=== PATIENT | male | born 1965 | race Caucasian/White ===

== ENCOUNTER 2020-03-26 17:50 | Emergency (ER) | payer MEDICAID, SELFPAY ==
[2020-03-26 18:05] VITALS: BP 112/78; PULSE 88; RESP 18; TEMP 36.6; O2SAT 95; BMI 24.0
--- NOTE | 2020-03-26 18:12 | XR_ITS ---
PROCEDURE: XR CHEST PORTABLE CLINICAL HISTORY: cough COMPARISON: CR XR CHEST 2V from 02/12/2019 FINDINGS: The cardiomediastinal silhouette and pulmonary vascularity are within normal limits. The lungs are clear without infiltrates, suspicious nodules, or pleural effusions. No acute bony abnormalities. IMPRESSION: No acute findings. Dictated by: Alfredo Rubio MD 03/27/2020 06:42 Alfredo Rubio MD in [place] 03/27/2020 06:42
--- NOTE | 2020-03-26 18:29 | HMH.EDGENADL ---
ED Disposition Clinical Impression: Generalized weakness Disposition: Xfer SNF Condition on Discharge: Good Instructions: DI for Muscle Weakness Referrals: Marcus Stephen MD [Primary Care Provider] - - Critical Care Critical Care Time: No Attestation: On , the high probability of a clinically significant, sudden or life threatening deterioration of the following system(s) required my full and direct attention, intervention and personal management. The time I documented below is in addition to time spent performing reported procedures but includes the following listed in this critical care notation. Medical Decision Making - Medical Records Medical records reviewed: Yes: I reviewed the patient's medical records. - Benny Inquiry Pt receiving controlled substance: No Vital Signs: 03/26/20 18:05 Temperature 97.8 F Temperature Source Oral Pulse Rate [Right Radial] 88 Respiratory Rate 18 Blood Pressure [Right Arm] 112/78 Blood Pressure Mean [Right Arm] 89 Blood Pressure Source [Right Arm] Automatic Cuff Blood Pressure Position [Right Arm] Supine 02 Sat by Pulse Oximetry 95 Oxygen Delivery Method Room Air - Lab Data Lab Results 03/26/20 19:00: WBC 5.8, RBC 4.11 L, Hgb 13.3 L, Hct 40.2 L, MCV 97.9 H, MCH 32.3 H, MCHC 33.0, RDW 15.7, Plt Count 217, MPV 8.2, Neut % (Auto) 47.0, Lymph % (Auto) 42.7, [place] % (Auto) 6.2, Eos % (Auto) 3.2, Baso % (Auto) 0.9, Neut # (Auto) 2.7, Lymph # (Auto) 2.5, [place] # (Auto) 0.4, Eos # (Auto) 0.2, Baso # (Auto) 0.1 03/26/20 19:00: Sodium 138, Potassium 4.2, Chloride 104, Carbon Dioxide 27, Anion Gap 11.2, BUN 11, Creatinine 1.00, Estimated Creat Clear 97, Estimated GFR 78, Est GFR ( Amer) 95, Glucose 155 H, Calcium 10.5 H, Total Bilirubin 0.3, AST 47, ALT 34, Alkaline Phosphatase 80, Total Protein 6.8, Albumin 4.1, Globulin 2.7, Albumin/Globulin Ratio 1.5 03/26/20 19:30: Urine Color Yellow, Urine Appearance Clear, Urine pH 6.0, Ur Specific [place] >= 1.030, Urine Protein Negative, Urine Glucose (UA) Negative, Urine Ketones Trace, Urine Blood Negative, Urine Nitrate Negative, Urine Bilirubin Negative, Urine Urobilinogen 1.0, Ur Leukocyte Esterase Negative, Urine WBC 5-10, Calcium Oxalate Crystal 1+ Result diagrams: 03/26/20 19:00 03/26/20 19:00 Orders (Tests/Meds): ORDERS Category Date Time Status XR chest portable Stat Exams 03/26/20 18:12 Taken - Radiology Data #1 Image(s): Chest Image Reviewed: Yes I reviewed the patient's radiology results, Yes I reviewed the patient's radiology image Preliminary Findings: Normal/NAD, No Fracture Seen - Reevaluation(s) Time: 19:47 Reevaluation #1: On reevaluation, patient appears to be at his baseline. Repeat neurologic exam does not show any significant difference. Patient is follow-up with PCP. Given strict return precautions. Verbalized understanding. Medical Decision Narrative: 54-year-old male presented with generalized weakness. Patient has nonfocal examination. Work-up initiated. General Adult HPI - General Chief complaint: Weakness Stated complaint: weakness Time Seen by Provider: 03/26/20 18:10 Mode of Arrival: EMS Limitations: No Limitations Description of Symptoms (Recalled from ER Triage Doc. by RN): Weakness - History of Present Illness HPI narrative: 54-year-old male presented to the emergency department with generalized weakness. Patient from nursing facility. Patient states he has had this for the last few days. Denies any headache or change in vision. He is not having focal weakness. No fevers or chills. No abdominal pain or diarrhea. No chest pain or shortness of breath. The patient cannot describe any focal problems, he states that he feels weak all over. - Related Data Previous Rx's Medication Instructions Recorded Acetaminophen 1,000 mg PO TID PRN #60 tab 02/12/19 Ibuprofen [Ibuprofen 600mg 600 mg PO Q6H #30 tab 02/12/19 Tablet] Penicillin V Potassium
[2020-03-26 19:17] LABS: Basophils # 0.1 K/mm3 (0-0.2); Basophils % 0.9 % (0.1-2.0); Eosinophils # 0.2 K/mm3 (0.0-0.4); Eosinophils % 3.2 % (0.1-12.0); Hematocrit 40.2 % (42.0-52.0); Hemoglobin 13.3 g/dL (14.1-18.0); Lymphocytes # 2.5 K/mm3 (0.7-4.5); Lymphocytes % 42.7 % (10-50); Mean Corpuscular Hemoglobin 32.3 pg (27.0-31.2); Mean Corpuscular Volume 97.9 fl (80-94); Mean Platelet Volume 8.2 fl (7.4-10.4); Monocytes # 0.4 K/mm3 (0.1-1.0); Monocytes % 6.2 % (1.7-9.3); Neutrophils # 2.7 K/mm3 (1.8-7.8); Platelet Count 217 K/mm3 (142-424); Red Blood Count 4.11 M/mm3 (4.60-6.20); Red Cell Distribution Width 15.7 % (11.5-17.5); White Blood Count 5.8 K/mm3 (4.8-10.8)
[2020-03-26 19:23] LABS: Chloride 104 mmol/L (98-107); Potassium 4.2 mmoL/L (3.5-5.1); Sodium 138 mmol/L (136-145)
[2020-03-26 19:26] LABS: Alanine Aminotransferase 34 U/L (12-78); Albumin Level 4.1 g/dl (3.5-5.0); Albumin/Globulin Ratio 1.5 (1.1-1.8); Alkaline Phosphatase 80 U/L (38-126); Anion Gap 11.2 mEq/L (5-15); Aspartate Amino Transferase 47 U/L (17-59); Bilirubin,Total 0.3 mg/dl (0.2-1.3); Blood Urea Nitrogen 11 mg/dl (9-20); Calcium 10.5 mg/dl (8.4-10.2); Carbon Dioxide 27 mmol/L (22.0-30.0); Creatinine Clearance Estimated 97 mL/min (50-200); Estimated Glomerular Filt Rate 78 ml/min (>60); GFR (African American) 95 ML/MIN (>60); Globulin 2.7 g/dL (1.3-3.2); Glucose 155 mg/dl (74-100); Total Protein,Serum 6.8 g/dl (6.3-8.2)
[2020-03-26 19:33] LABS: Microscopic, Urine URINE MICROSCOPIC (MICROSCOPIC)
[2020-03-26 19:35] LABS: Appearance,Urine CLEAR (Clear); Blood, Urine Negative (Negative); Color,Urine YELLOW (Yellow); Glucose,Urine (UA) Negative (Negative); Ketones,Urine TRACE (Negative); Leukocyte Esterase,Urine Negative (Negative); Nitrate,Urine Negative (Negative); Protein,Urine Negative (Negative); Specific Gravity, Urine >= 1.030 (1.005-1.030)
[2020-03-26 19:45] LABS: Bilirubin,Urine Negative (Negative); Calcium Oxalate Crystals,Urine 1+ /lpf
[2020-03-26 19:48] VITALS: BP 116/75; PULSE 82; RESP 16; TEMP 36.8; O2SAT 98
== END 2020-03-26 19:52 ==
PROVIDERS: Emergency Provider Emergency Medicine; PCP Emergency Medicine
DX: R53.83 Other fatigue (principal); E10.65 Type 1 diabetes mellitus with hyperglycemia; Z79.84 Long term (current) use of oral hypoglycemic drugs
CPT/HCPCS: 71045; 80053; 81001; 85025; 99282

== ENCOUNTER 2020-05-16 10:11 | Emergency (ER) | payer MEDICAID, SELFPAY ==
[2020-05-16 10:11] VITALS: BP 118/96; PULSE 74; RESP 18; TEMP 36.4; O2SAT 100; BMI 25.8
--- NOTE | 2020-05-16 10:13 | XR_ITS ---
PROCEDURE: XR CHEST PORTABLE CLINICAL HISTORY: weakness COMPARISON: CR XR CHEST 2V from 02/12/2019 CR XR CHEST PORTABLE from 03/26/2020 FINDINGS: The cardiomediastinal silhouette and pulmonary vascularity are within normal limits. The lungs are clear without infiltrates, suspicious nodules, or pleural effusions. There are minimal atelectatic changes in the left lower lobe. No acute bony finding. IMPRESSION: Minimal left basilar atelectasis Dictated by: Alfredo Rubio MD 05/16/2020 12:06 Alfredo Rubio MD in [facility] 05/16/2020 12:06
--- NOTE | 2020-05-16 10:15 | CT_ITS ---
Procedure: CT ANGIO NECK CLINICAL HISTORY: difficulty walking Weakness COMPARISON: CT CT ANGIO HEAD from 05/16/2020 TECHNIQUE: IV Contrast: 100ml Isovue 370 Axial images obtained with sagittal and coronal reformats. All CT scans at the facility use one or more dose reduction, viz: automated exposure control, ma/kV adjustment per patient size (including targeted exams where dose is matched to indication, i.e. head), or iterative reconstruction technique. FINDINGS: CTA neck: Motion artifact limits fine detail. Unremarkable appearing aortic arch and great vessels. No carotid or vertebral stenosis dissection or ulcerating plaque. Incidental note is made thickening of the esophagus with air in the esophagus which could be due to distal obstruction or reflux. Motion artifact limits fine detail of the nonvascular structures. There is and 11 mm hypodense nodule of the thyroid gland on the left. Scattered small nodes are present in the neck. CTA head: Bolus timing issues and motion artifact limits fine detail evaluation of the cavernous portion of the ICAs. There is mild fusiform dilatation of the cavernous portion of the right ICA at 6 mm. No aneurysm, AVM, or large branch occlusion apparent. No obvious enhancing lesions. IMPRESSION: 1. No significant stenosis occlusion or dissection or aneurysm apparent. 2. Bolus timing and motion artifact limits fine detail evaluation of the intracranial portion of the exam. There is mild fusiform dilatation of the cavernous portion of the right ICA at 6 mm. 3. Air is present in the esophagus and may be due to reflux or distal obstruction. Dictated by: Alfredo Rubio MD 05/16/2020 11:48 Alfredo Rubio MD in [facility] 05/16/2020 11:48
--- NOTE | 2020-05-16 10:15 | CT_ITS ---
PROCEDURE: CT HEAD/BRAIN WO CON CLINICAL INDICATION: weakness, headache COMPARISON: CT CT HEAD/BRAIN WO CON from 02/12/2019 TECHNIQUE: Axial images obtained. All CT scans at the facility use one or more dose reduction, viz: automated exposure control, ma/kV adjustment per patient size (including targeted exams where dose is matched to indication, i.e. head), or iterative reconstruction technique. FINDINGS: No midline shift, mass effect, intracranial hemorrhage, hydrocephalus, or extra-axial fluid collection is evident. The calvarium has an unremarkable appearance. No mastoid effusion. There is mild mucosal thickening of the paranasal sinuses without air-fluid level. IMPRESSION: No acute intracranial finding Dictated by: Alfredo Rubio MD 05/16/2020 11:37 Alfredo Rubio MD in [facility] 05/16/2020 11:37
--- NOTE | 2020-05-16 10:16 | CT_ITS ---
PROCEDURE: CT ABDOMEN PELVIS W CON CLINICAL INDICATION: abd pain Abdominal pain with weakness and headache COMPARISON: No exams were available for comparison TECHNIQUE: IV Contrast: 75ML Isovue 370 Oral Contrast None Axial images obtained with sagittal and coronal reformats. All CT scans at the facility use one or more dose reduction, viz: automated exposure control, ma/kV adjustment per patient size (including targeted exams where dose is matched to indication, i.e. head), or iterative reconstruction technique. FINDINGS: LOWER THORAX: Bowel interposition is present on the right. There is fatty liver. No focal liver lesion is evident. The gallbladder and spleen have an unremarkable appearance. The adrenal glands and pancreas and kidneys have an unremarkable appearance. No intestinal obstruction or free air. No evidence of appendicitis. There is a small left inguinal hernia containing fat. There is mild wedging of L1 with loss of height anteriorly of approximately 25 percent ABDOMEN & PELVIS: The liver, spleen, pancreas, adrenal glands, and kidneys show no acute finding. No intestinal obstruction or free air. No evidence of appendicitis or diverticulitis. No pelvic mass, abnormal fluid collection, or focal inflammatory change of the pelvis. No acute bony anomalies. IMPRESSION: No acute finding Dictated by: Alfredo Rubio MD 05/16/2020 11:53 Alfredo Rubio MD in [place] 05/16/2020 11:53
--- NOTE | 2020-05-16 10:16 | ECG_ITS ---
APPROVED REPORT Exam: Resting ECG HR:72 bpm ECG Measurements Heart Rate 72 AXES IA 152 P 27 QRSd 78 QRS -9 QT 370 T 7 QTc 405 Conclusion Normal sinus rhythm Possible Left atrial enlargement Nonspecific T wave abnormality Abnormal ECG Electronically signed by : Paco Quick, 05/17/2020 08:54:33
--- NOTE | 2020-05-16 10:16 | HMH.EDGENADL ---
ED Disposition Clinical Impression: Gait instability, Generalized weakness Schizophrenia Qualifiers: Schizophrenia type: other Qualified Code(s): F20.89 - Other schizophrenia Disposition: Home, Self-Care Condition on Discharge: Fair Instructions: Exercises to Help Prevent Falls, How to Prevent Falls Referrals: Marcus Stephen MD [Primary Care Provider] - Time of Disposition: 13:31 - Critical Care Critical Care Time: No Attestation: On , the high probability of a clinically significant, sudden or life threatening deterioration of the following system(s) required my full and direct attention, intervention and personal management. The time I documented below is in addition to time spent performing reported procedures but includes the following listed in this critical care notation. Medical Decision Making - Medical Records Medical records reviewed: Yes: I reviewed the patient's medical records. - Benny Inquiry Pt receiving controlled substance: No Vital Signs: 05/16/20 10:11 05/16/20 11:41 05/16/20 12:00 Temperature 97.5 F L Temperature Source Oral Pulse Rate Pulse Rate [Left Radial] 74 78 78 Respiratory Rate 18 18 Blood Pressure Blood Pressure [Right Arm] 118/96 H 163/67 H Blood Pressure Mean [Right Arm] 103 99 Blood Pressure Source [Right Arm] Automatic Cuff Blood Pressure Position [Right Arm] Sitting 02 Sat by Pulse Oximetry 100 98 98 Oxygen Delivery Method Room Air 05/16/20 12:30 05/16/20 13:22 Temperature 98.1 F Temperature Source Pulse Rate 84 Pulse Rate [Left Radial] 83 Respiratory Rate 16 16 Blood Pressure 134/71 Blood Pressure [Right Arm] 122/88 Blood Pressure Mean [Right Arm] 99 Blood Pressure Source [Right Arm] Blood Pressure Position [Right Arm] 02 Sat by Pulse Oximetry 98 Oxygen Delivery Method Room Air - Lab Data Lab Results 05/16/20 10:17: WBC 6.0, RBC 4.39 L, Hgb 13.5 L, Hct 43.8, MCV 99.9 H, MCH 30.7, MCHC 30.7 L, RDW 15.4, Plt Count 255, MPV 7.6, Neut % (Auto) 46.6, Lymph % (Auto) 40.4, [place] % (Auto) 9.6 H, Eos % (Auto) 3.0, Baso % (Auto) 0.4, Neut # (Auto) 2.8, Lymph # (Auto) 2.4, [place] # (Auto) 0.6, Eos # (Auto) 0.2, Baso # (Auto) 0.0 05/16/20 10:17: PT 11.8, INR 1.00, APTT 28.2 05/16/20 10:17: Sodium 133 L, Potassium 3.9, Chloride 100, Carbon Dioxide 26, Anion Gap 10.9, BUN 5 L, Creatinine 0.80, Estimated Creat Clear 123, Estimated GFR 101, Est GFR ( Amer) 122, Glucose 127 H, Calcium 9.6, Total Bilirubin 0.4, AST 49, ALT 32, Alkaline Phosphatase 107, Troponin I < 0.01, Total Protein 7.4, Albumin 4.3, Globulin 3.1, Albumin/Globulin Ratio 1.4 05/16/20 12:14: Urine Color Yellow, Urine Appearance Clear, Urine pH 7.5, Ur Specific [place] 1.015, Urine Protein Negative, Urine Glucose (UA) Negative, Urine Ketones Negative, Urine Blood Negative, Urine Nitrate Negative, Urine Bilirubin Negative, Urine Urobilinogen 0.2, Ur Leukocyte Esterase Negative, Urine RBC None, Urine WBC None, Ur Squamous Epith Cells Occasional, Urine Bacteria None Result diagrams: 05/16/20 10:17 05/16/20 10:17 Orders (Tests/Meds): ED MEDICATIONS Discontinued Medications Generic Name Dose Route Start Last Admin Trade Name Freq PRN Reason Stop Dose Admin Iopamidol 150 ml 05/16/20 11:12 05/16/20 11:13 Iopamidol-370 (76%);100ml Bottle IV 05/16/20 11:13 150 ml ONCE ONE Administration Sodium Chloride 10 ml 05/16/20 11:12 05/16/20 11:13 Sodium Chloride 0.9% 10ml Syr (Rad Only) IV 05/16/20 11:13 10 ml ONCE ONE Administration Sodium Chloride 50 ml 05/16/20 11:12 05/16/20 11:13 0.9 % Sodium Chloride 50 Ml Vial IV 05/16/20 11:13 50 ml ONCE ONE Administration ORDERS Category Date Time Status Occult Blood,Stool Stat Lab 05/16/20 10:14 Ordered ECG Request by /Nse Stat Y 05/16/20 10:13 Ordered Medical Decision Narrative: In summary this is a 54-year-old male with history of schizophrenia presenting to the emergency d
[2020-05-16 10:42] LABS: Basophils % 0.4 % (0.1-2.0); Eosinophils # 0.2 K/mm3 (0.0-0.4); Hematocrit 43.8 % (42.0-52.0); Hemoglobin 13.5 g/dL (14.1-18.0); Lymphocytes # 2.4 K/mm3 (0.7-4.5); Lymphocytes % 40.4 % (10-50); Mean Corpuscular HGB Conc 30.7 g/dL (31.8-35.4); Mean Corpuscular Hemoglobin 30.7 pg (27.0-31.2); Mean Corpuscular Volume 99.9 fl (80-94); Mean Platelet Volume 7.6 fl (7.4-10.4); Monocytes # 0.6 K/mm3 (0.1-1.0); Monocytes % 9.6 % (1.7-9.3); Neutrophils # 2.8 K/mm3 (1.8-7.8); Neutrophils % 46.6 % (37.0-80.0); Platelet Count 255 K/mm3 (142-424); Red Blood Count 4.39 M/mm3 (4.60-6.20); Red Cell Distribution Width 15.4 % (11.5-17.5)
[2020-05-16 10:51] LABS: Chloride 100 mmol/L (98-107); Sodium 133 mmol/L (136-145)
[2020-05-16 10:52] LABS: Potassium 3.9 mmoL/L (3.5-5.1)
[2020-05-16 10:54] LABS: Alanine Aminotransferase 32 U/L (12-78); Alkaline Phosphatase 107 U/L (38-126); Aspartate Amino Transferase 49 U/L (17-59); Bilirubin,Total 0.4 mg/dl (0.2-1.3); Blood Urea Nitrogen 5 mg/dl (9-20); Creatinine Clearance Estimated 123 mL/min (50-200); Estimated Glomerular Filt Rate 101 ml/min (>60); GFR (African American) 122 ML/MIN (>60)
[2020-05-16 10:55] LABS: Albumin Level 4.3 g/dl (3.5-5.0); Albumin/Globulin Ratio 1.4 (1.1-1.8); Anion Gap 10.9 mEq/L (5-15); Calcium 9.6 mg/dl (8.4-10.2); Carbon Dioxide 26 mmol/L (22.0-30.0); Globulin 3.1 g/dL (1.3-3.2); Glucose 127 mg/dl (74-100); Total Protein,Serum 7.4 g/dl (6.3-8.2)
[2020-05-16 11:01] LABS: Activated Partial Thrombo Time 28.2 seconds (23.6-34.0); Prothrombin Time 11.8 seconds (9.4-11.8)
--- NOTE | 2020-05-16 11:05 | PC.NURSE ---
Pt in radiology
[2020-05-16 11:10] LABS: Troponin I < 0.01 ng/ml (0.00-0.034)
[2020-05-16 11:41] VITALS: PULSE 78; O2SAT 98
[2020-05-16 12:00] VITALS: BP 163/67; PULSE 78; RESP 18; O2SAT 98
[2020-05-16 12:16] LABS: Microscopic, Urine URINE MICROSCOPIC (MICROSCOPIC)
[2020-05-16 12:18] LABS: Appearance,Urine CLEAR (Clear); Bilirubin,Urine Negative (Negative); Blood, Urine Negative (Negative); Color,Urine YELLOW (Yellow); Glucose,Urine (UA) Negative (Negative); Ketones,Urine Negative (Negative); Leukocyte Esterase,Urine Negative (Negative); Nitrate,Urine Negative (Negative); PH,Urine 7.5 (5.0-8.5); Protein,Urine Negative (Negative); Specific Gravity, Urine 1.015 (1.005-1.030); Urobilinogen,Urine 0.2 EU/dl (0.2)
[2020-05-16 12:29] LABS: Squamous Epithelial Cell,Urine Occasional #/hpf (0-5)
[2020-05-16 12:30] VITALS: BP 122/88; PULSE 83; RESP 16; O2SAT 98
--- NOTE | 2020-05-16 12:42 | PC.NURSE ---
Called for pt meal tray
[2020-05-16 13:22] VITALS: BP 134/71; PULSE 84; RESP 16; TEMP 36.7; O2SAT 98
== END 2020-05-16 13:22 | disposition home or self-care (01) ==
PROVIDERS: Emergency Provider Emergency Medicine; PCP Emergency Medicine
DX: R53.1 Weakness (principal); R26.81 Unsteadiness on feet; F20.89 Other schizophrenia
CPT/HCPCS: 70450; 70496; 70498; 71045; 74177; 80053; 81001; 84484; 85025; 85610; 85730; 93005; 99283; Q9967

== ENCOUNTER 2020-05-21 15:05 | Emergency (ER) | payer MEDICAID, SELFPAY ==
[2020-05-21] VITALS (8 sets, daily range): BP systolic 129–137; BP diastolic 72–86; PULSE 75–80; RESP 16–18; TEMP 36.4–36.7; O2SAT 95–99; BMI 23.1
--- NOTE | 2020-05-21 15:15 | XR_ITS ---
PROCEDURE: XR CHEST PORTABLE CLINICAL HISTORY: weakness COMPARISON: No exams were available for comparison FINDINGS: The cardiomediastinal silhouette and pulmonary vascularity are within normal limits. There are low lung volumes with mild bibasilar atelectasis. No acute bony abnormalities. IMPRESSION: Low lung volumes with mild bibasilar atelectasis Dictated by: Alfredo Rubio MD 05/21/2020 16:10 Alfredo Rubio MD in [place] 05/21/2020 16:10
--- NOTE | 2020-05-21 15:16 | HMH.EDGENADL ---
ED Disposition Clinical Impression: Feared condition not demonstrated Disposition: Home, Self-Care Condition on Discharge: Good Referrals: Marcus Stephen MD [Primary Care Provider] - 3 days Time of Disposition: 17:13 - Critical Care Critical Care Time: No Attestation: On , the high probability of a clinically significant, sudden or life threatening deterioration of the following system(s) required my full and direct attention, intervention and personal management. The time I documented below is in addition to time spent performing reported procedures but includes the following listed in this critical care notation. Medical Decision Making - Benny Inquiry Pt receiving controlled substance: No Vital Signs: 05/21/20 15:05 05/21/20 16:26 05/21/20 16:30 Temperature 97.5 F L Temperature Source Oral Pulse Rate 77 78 Pulse Rate [Left Radial] 75 Respiratory Rate 16 Blood Pressure [Right Arm] 129/86 Blood Pressure Mean [Right Arm] 100 Blood Pressure Source [Right Arm] Automatic Cuff Blood Pressure Position [Right Arm] Sitting 02 Sat by Pulse Oximetry 95 98 98 - Lab Data Lab results reviewed: Yes: I reviewed the patient's lab results. Lab Results 05/21/20 16:10: WBC 5.2, RBC 4.09 L, Hgb 12.8 L, Hct 38.6 L, MCV 94.5 H, MCH 31.3 H, MCHC 33.1, RDW 14.9, Plt Count 234, MPV 8.0, Neut % (Auto) 47.3, Lymph % (Auto) 42.2, [place] % (Auto) 6.8, Eos % (Auto) 3.1, Baso % (Auto) 0.6, Neut # (Auto) 2.5, Lymph # (Auto) 2.2, [place] # (Auto) 0.4, Eos # (Auto) 0.2, Baso # (Auto) 0.0 05/21/20 16:10: Sodium 130 L, Potassium 3.7, Chloride 96 L, Carbon Dioxide 22, Anion Gap 15.7 H, BUN 4 L, Creatinine 0.80, Estimated Creat Clear 123, Estimated GFR 101, Est GFR ( Amer) 122, Glucose 119 H, Calcium 9.4, Total Bilirubin 0.4, AST 53, ALT 35, Alkaline Phosphatase 89, Troponin I < 0.01, Total Protein 7.0, Albumin 4.2, Globulin 2.8, Albumin/Globulin Ratio 1.5 Result diagrams: 05/21/20 16:10 05/21/20 16:10 Orders (Tests/Meds): ORDERS Category Date Time Status Troponin I Q3H Lab 05/21/20 18:15 Ordered Troponin I Q3H Lab 05/21/20 21:15 Ordered Urinalysis and Microscopic Stat Lab 05/21/20 15:15 Ordered Blood Culture Stat Micro 05/21/20 16:10 Received - Radiology Data #1 Image(s): Chest Image Reviewed: Yes I reviewed the patient's radiology image Preliminary Findings: Normal/NAD Medical Decision Narrative: 54yo M sent from [facility] for evaluation of low energy. Patient is in no acute distress on his arrival. He is able to participate in his exam. Patient denies any complaint of pain. He denies any shortness of breath or chest pain. Routine labs have been ordered along with chest x-ray. Patient was observed to get out of this hospital bed by himself and ambulate across the emergency department to the restroom without difficulty. He then ambulated back to his room and got back in bed without difficulty. Labs are unremarkable. Chest x-ray shows no acute process. Patient has had normal vital signs during his observation emergency department he is appropriate and stable for discharge home at this time. General Adult HPI - General Stated complaint: weak Time Seen by Provider: 05/21/20 15:16 - History of Present Illness HPI narrative: 54yo M sent to the hospital via EMS from [facility] with report that the patient is not behaving normally and very somnolent. Staff reports the patient is unable to ambulate. I received report personally. Patient had normal blood pressure prior to arrival. The staff did not have a full set of vital signs to provide prior to transport. The patient states sometimes he feels tired and that he does not eat well, but this is because the quality of the food is poor. He denies nausea/vomiting/diarrhea, chest pain, shortness of breath. - Related Data Previous Rx's Medication Instructions Recorded Acetaminophen 1,000 mg PO TID PRN #60 tab 02/12/19 Ibuprofen [I
[2020-05-21 16:30] LABS: Basophils % 0.6 % (0.1-2.0); Eosinophils # 0.2 K/mm3 (0.0-0.4); Eosinophils % 3.1 % (0.1-12.0); Hematocrit 38.6 % (42.0-52.0); Hemoglobin 12.8 g/dL (14.1-18.0); Lymphocytes # 2.2 K/mm3 (0.7-4.5); Lymphocytes % 42.2 % (10-50); Mean Corpuscular HGB Conc 33.1 g/dL (31.8-35.4); Mean Corpuscular Hemoglobin 31.3 pg (27.0-31.2); Mean Corpuscular Volume 94.5 fl (80-94); Monocytes # 0.4 K/mm3 (0.1-1.0); Monocytes % 6.8 % (1.7-9.3); Neutrophils # 2.5 K/mm3 (1.8-7.8); Neutrophils % 47.3 % (37.0-80.0); Platelet Count 234 K/mm3 (142-424); Red Blood Count 4.09 M/mm3 (4.60-6.20); Red Cell Distribution Width 14.9 % (11.5-17.5); White Blood Count 5.2 K/mm3 (4.8-10.8)
[2020-05-21 16:32] LABS: Chloride 96 mmol/L (98-107); Sodium 130 mmol/L (136-145)
[2020-05-21 16:33] LABS: Potassium 3.7 mmoL/L (3.5-5.1)
[2020-05-21 16:35] LABS: Alanine Aminotransferase 35 U/L (12-78); Alkaline Phosphatase 89 U/L (38-126); Anion Gap 15.7 mEq/L (5-15); Aspartate Amino Transferase 53 U/L (17-59); Bilirubin,Total 0.4 mg/dl (0.2-1.3); Blood Urea Nitrogen 4 mg/dl (9-20); Carbon Dioxide 22 mmol/L (22.0-30.0); Creatinine Clearance Estimated 123 mL/min (50-200); Estimated Glomerular Filt Rate 101 ml/min (>60); GFR (African American) 122 ML/MIN (>60)
[2020-05-21 16:36] LABS: Albumin Level 4.2 g/dl (3.5-5.0); Albumin/Globulin Ratio 1.5 (1.1-1.8); Calcium 9.4 mg/dl (8.4-10.2); Globulin 2.8 g/dL (1.3-3.2); Glucose 119 mg/dl (74-100)
[2020-05-21 16:54] LABS: Troponin I < 0.01 ng/ml (0.00-0.034)
== END 2020-05-21 17:41 | disposition home or self-care (01) ==
PROVIDERS: Emergency Provider Family Medicine; PCP Emergency Medicine
DX: R53.83 Other fatigue (principal); Z71.1 Person with feared health complaint in whom no diagnosis is made; F20.9 Schizophrenia, unspecified; E10.9 Type 1 diabetes mellitus without complications
CPT/HCPCS: 71045; 80053; 84484; 85025; 87040; 99283

== ENCOUNTER 2020-06-20 17:16 | Observation (INO) | payer MEDICAID, SELFPAY ==
[2020-06-20] VITALS (14 sets, daily range): BP systolic 98–145; BP diastolic 60–118; PULSE 81–93; RESP 11–26; TEMP 36.3–36.6; O2SAT 97–100; BMI 22.4; BMI 21.1
--- NOTE | 2020-06-20 17:08 | ECG_ITS ---
APPROVED REPORT Exam: Resting ECG HR:85 bpm ECG Measurements Heart Rate 85 AXES DC 156 P 55 QRSd 84 QRS 41 QT 368 T 15 QTc 437 Conclusion Normal sinus rhythm T wave abnormality, consider anterior ischemia Abnormal ECG Electronically signed by : Paco Quick, 06/23/2020 07:33:46
--- NOTE | 2020-06-20 17:18 | CT_ITS ---
PROCEDURE: CT HEAD/BRAIN WO CON CLINICAL INDICATION: ams Altered mental status, altered level of consciousness, confusion, disorientation COMPARISON: CT CT ANGIO HEAD from 05/16/2020 TECHNIQUE: Axial images obtained. All CT scans at the facility use one or more dose reduction, viz: automated exposure control, ma/kV adjustment per patient size (including targeted exams where dose is matched to indication, i.e. head), or iterative reconstruction technique. FINDINGS: No midline shift, mass effect, intracranial hemorrhage, hydrocephalus, or extra-axial fluid collection is evident. There is generalized atrophy with hypoattenuation of the periventricular white matter consistent with microangiopathic changes. The calvarium has an unremarkable appearance. No mastoid effusion. Opacified left frontal sinus with moderate mucosal thickening of the right frontal sinus. Partial opacification of the ethmoids and mild mucosal thickening of the left maxillary sinus and left sphenoid sinus. IMPRESSION: 1. No acute intracranial findings. 2. Sinusitis Dictated by: Alfredo Rubio MD 06/21/2020 06:53 Alfredo Rubio MD in [place] 06/21/2020 06:53
--- NOTE | 2020-06-20 17:18 | XR_ITS ---
PROCEDURE: XR CHEST PORTABLE CLINICAL HISTORY: soa Shortness of air COMPARISON: CR XR CHEST PORTABLE from 03/26/2020 CR XR CHEST PORTABLE from 05/16/2020 CR XR CHEST PORTABLE from 05/21/2020 FINDINGS: The cardiomediastinal silhouette and pulmonary vascularity are within normal limits. Hypoventilation with bibasilar atelectasis. No acute bony abnormalities. IMPRESSION: Hypoexpansion with bibasilar atelectasis Dictated by: Alfredo Rubio MD 06/20/2020 21:40 Alfredo Rubio MD in [place] 06/20/2020 21:40
--- NOTE | 2020-06-20 17:20 | CT_ITS ---
PROCEDURE: CT ANGIO CHEST CLINCIAL INDICATION: ams Shortness of air, weakness COMPARISON: No exams were available for comparison TECHNIQUE: IV Contrast: 70ML Isovue 370 Axial images obtained with sagittal and coronal reformats. All CT scans at the facility use one or more dose reduction, viz: automated exposure control, ma/kV adjustment per patient size (including targeted exams where dose is matched to indication, i.e. head), or iterative reconstruction technique. FINDINGS: HEART AND MEDIASTINAL STRUCTURES: No evidence of pulmonary embolus, aortic aneurysm, or aortic dissection. LUNGS AND PLEURAL SPACES: 4 mm noncalcified nodule right upper lobe image 46. 4 mm noncalcified nodule right upper lobe medially image 46. Atelectatic changes are present in the lower lobes with dependent changes posteriorly. BONY STRUCTURES: No acute bony abnormalities apparent. UPPER ABDOMEN: Large amount of retained colonic feces ADDITIONAL FINDINGS: No other significant abnormalities. IMPRESSION: 1. No evidence of pulmonary embolus. 2. There are 2 nodules in the right upper lobe each at 4 mm. Consider 6-12 month follow-up. 3. Constipation Dictated by: Alfredo Rubio MD 06/21/2020 11:44 Alfredo Rubio MD in [place] 06/21/2020 11:44
--- NOTE | 2020-06-20 17:20 | CT_ITS ---
Procedure: CT ANGIO NECK CLINICAL HISTORY: ams Altered mental status, altered level of consciousness, confusion, disorientation COMPARISON: No exams were available for comparison TECHNIQUE: IV Contrast: 100ml Isovue 370 Axial images obtained with sagittal and coronal reformats. All CT scans at the facility use one or more dose reduction, viz: automated exposure control, ma/kV adjustment per patient size (including targeted exams where dose is matched to indication, i.e. head), or iterative reconstruction technique. FINDINGS: Aortic arch has an unremarkable appearance. Unremarkable appearing great vessels. The carotids and vertebral arteries have an unremarkable appearance. No stenosis, ulceration, aneurysm, or dissection. 1.4 cm nodule is present involving the left lobe of the thyroid gland. IMPRESSION: Negative CTA of the neck Dictated by: Alfredo Rubio MD 06/21/2020 10:17 Alfredo Rubio MD in [place] 06/21/2020 10:17
--- NOTE | 2020-06-20 17:20 | CT_ITS ---
Procedure: CT ANGIO HEAD CLINICAL HISTORY: ams Altered mental status, altered level of consciousness, confusion, disorientation COMPARISON: CT CT HEAD/BRAIN WO CON from 06/20/2020 TECHNIQUE: IV Contrast: 100ml Isovue 370 Axial images obtained with sagittal and coronal reformats. All CT scans at the facility use one or more dose reduction, viz: automated exposure control, ma/kV adjustment per patient size (including targeted exams where dose is matched to indication, i.e. head), or iterative reconstruction technique. FINDINGS: No aneurysm, AVM, or major intracranial occlusive process apparent. No enhancing lesions. No evidence of dural sinus thrombosis IMPRESSION: Negative CTA of the head Dictated by: Alfredo Rubio MD 06/21/2020 10:20 Alfredo Rubio MD in [place] 06/21/2020 10:20
--- NOTE | 2020-06-20 17:22 | PC.NURSE ---
Notified RT about BG
[2020-06-20 17:32] LABS: Basophils % 0.3 % (0.1-2.0); Eosinophils # 0.1 K/mm3 (0.0-0.4); Eosinophils % 1.4 % (0.1-12.0); Hematocrit 42.2 % (42.0-52.0); Hemoglobin 13.6 g/dL (14.1-18.0); Lymphocytes # 1.6 K/mm3 (0.7-4.5); Mean Corpuscular HGB Conc 32.2 g/dL (31.8-35.4); Mean Corpuscular Hemoglobin 30.7 pg (27.0-31.2); Mean Corpuscular Volume 95.5 fl (80-94); Mean Platelet Volume 7.7 fl (7.4-10.4); Monocytes # 0.8 K/mm3 (0.1-1.0); Monocytes % 8.5 % (1.7-9.3); Neutrophils # 6.4 K/mm3 (1.8-7.8); Neutrophils % 71.8 % (37.0-80.0); Platelet Count 357 K/mm3 (142-424); Red Blood Count 4.42 M/mm3 (4.60-6.20); Red Cell Distribution Width 16.7 % (11.5-17.5)
[2020-06-20 17:33] LABS: Chloride 100 mmol/L (98-107); Potassium 3.5 mmoL/L (3.5-5.1); Sodium 135 mmol/L (136-145)
[2020-06-20 17:35] LABS: Alanine Aminotransferase 24 U/L (12-78); Alkaline Phosphatase 153 U/L (38-126); Aspartate Amino Transferase 38 U/L (17-59); Bilirubin,Total 0.7 mg/dl (0.2-1.3); Blood Urea Nitrogen 9 mg/dl (9-20); Creatinine Clearance Estimated 104 mL/min (50-200); Estimated Glomerular Filt Rate 88 ml/min (>60); GFR (African American) 107 ML/MIN (>60)
[2020-06-20 17:36] LABS: Albumin Level 4.1 g/dl (3.5-5.0); Albumin/Globulin Ratio 1.4 (1.1-1.8); Anion Gap 12.5 mEq/L (5-15); Calcium 9.8 mg/dl (8.4-10.2); Carbon Dioxide 26 mmol/L (22.0-30.0); Globulin 2.9 g/dL (1.3-3.2); Glucose 120 mg/dl (74-100); Lipase 192 U/L (23-300); Magnesium 1.5 mg/dl (1.6-2.3)
--- NOTE | 2020-06-20 17:42 | HMH.EDAMS ---
ED Disposition Clinical Impression: Altered mental status Disposition: Admitted as Observation Condition on Discharge: Good Instructions: DI for Altered Mental Status - Critical Care Critical Care Time: No Attestation: On , the high probability of a clinically significant, sudden or life threatening deterioration of the following system(s) required my full and direct attention, intervention and personal management. The time I documented below is in addition to time spent performing reported procedures but includes the following listed in this critical care notation. Medical Decision Making - Medical Records Medical records reviewed: Yes: I reviewed the patient's medical records. - Benny Inquiry Pt receiving controlled substance: No Vital Signs: 06/20/20 17:17 06/20/20 17:30 Temperature 97.8 F Temperature Source Oral Pulse Rate 84 Pulse Rate [Right] 81 Respiratory Rate 18 Blood Pressure 119/82 Blood Pressure [Right Arm] 123/84 Blood Pressure Mean 93 Blood Pressure Mean [Right Arm] 97 02 Sat by Pulse Oximetry 98 99 - Lab Data Lab Results 06/20/20 17:15: WBC 9.0, RBC 4.42 L, Hgb 13.6 L, Hct 42.2, MCV 95.5 H, MCH 30.7, MCHC 32.2, RDW 16.7, Plt Count 357, MPV 7.7, Neut % (Auto) 71.8, Lymph % (Auto) 18.0, [place] % (Auto) 8.5, Eos % (Auto) 1.4, Baso % (Auto) 0.3, Neut # (Auto) 6.4, Lymph # (Auto) 1.6, [place] # (Auto) 0.8, Eos # (Auto) 0.1, Baso # (Auto) 0.0 06/20/20 17:15: Sodium 135 L, Potassium 3.5, Chloride 100, Carbon Dioxide 26, Anion Gap 12.5, BUN 9, Creatinine 0.90, Estimated Creat Clear 104, Estimated GFR 88, Est GFR ( Amer) 107, Glucose 120 H, Calcium 9.8, Magnesium 1.5 L, Total Bilirubin 0.7, AST 38, ALT 24, Alkaline Phosphatase 153 H, Troponin I < 0.01, Total Protein 7.0, Albumin 4.1, Globulin 2.9, Albumin/Globulin Ratio 1.4, Lipase 192, TSH 2.65 06/20/20 17:15: Salicylates < 1.0 L, Acetaminophen < 10 L 06/20/20 17:15: Plasma/Serum Alcohol < 10 06/20/20 17:18: VBG pH 7.33, VBG pCO2 47.8, VBG pO2 28.0, VBG HCO3 24.5, VBG Total CO2 26.0, VBG O2 Saturation 52.1, VBG Base Excess -1.4 Result diagrams: 06/20/20 17:15 06/20/20 17:15 Orders (Tests/Meds): ED MEDICATIONS Generic Name Dose Route Start Last Admin Trade Name Freq PRN Reason Stop Dose Admin Sodium Chloride 1,000 mls @ 999 mls/hr 06/20/20 17:30 06/20/20 17:48 Sod Chlor 0.9% 1000ml Bag IV 06/20/20 18:30 999 mls/hr .Q1H1M JO Administration Discontinued Medications Generic Name Dose Route Start Last Admin Trade Name Freq PRN Reason Stop Dose Admin Magnesium Sulfate 2 gm/ Sodium 104 mls @ 100 mls/hr 06/20/20 18:07 06/20/20 18:48 Chloride IV 06/20/20 19:09 Not Given ONCE ONE Magnesium Sulfate 1 gm/ Sodium 52 mls @ 100 mls/hr 06/20/20 18:47 06/20/20 18:49 Chloride IV 06/20/20 19:18 100 mls/hr ONCE ONE Administration Iopamidol 170 ml 06/20/20 18:56 06/20/20 18:58 Iopamidol-370 (76%);100ml Bottle IV 06/20/20 18:57 170 ml ONCE ONE Administration Naloxone HCl 0.4 mg 06/20/20 18:42 06/20/20 19:04 Naloxone 0.4mg/Ml Vial IV 06/20/20 18:43 0.4 mg ONCE ONE Administration Sodium Chloride 50 ml 06/20/20 18:56 06/20/20 18:58 0.9 % Sodium Chloride 50 Ml Vial IV 06/20/20 18:57 50 ml ONCE ONE Administration Sodium Chloride 10 ml 06/20/20 18:56 06/20/20 18:58 Sodium Chloride 0.9% 10ml Syr (Rad Only) IV 06/20/20 18:57 10 ml ONCE ONE Administration Sodium Chloride 20 ml 06/20/20 18:56 06/20/20 18:58 0.9% Sodium Chloride 20ml Vial IV 06/20/20 18:57 20 ml ONCE ONE Administration ORDERS Category Date Time Status CT angio chest Stat Cat Scan 06/20/20 17:[address] angio head Stat Cat Scan 06/20/20 17:[address] angio neck Stat Cat Scan 06/20/20 17:[address] head/brain wo con Stat Cat Scan 06/20/20 17:18 Taken XR chest portable Stat Exams 06/20/20 17:18 Taken Basic Metabolic Panel AMLAB Lab 06/21/20 06:00 Ordered Complete Blood C
[2020-06-20 17:55] LABS: Troponin I < 0.01 ng/ml (0.00-0.034)
--- NOTE | 2020-06-20 18:03 | PC.NURSE ---
pt going to rad.
[2020-06-20 18:07] LABS: Thyroid Stimulating Hormone 2.65 uIU/mL (0.465-4.68)
[2020-06-20 18:14] LABS: VBG Base Excess -1.4 mmol/L (-2.4-2.3); VBG HCO3 24.5 mmol/L (23-30); VBG Oxygen Saturation 52.1 % (50-70); VBG PCO2 47.8 mmol/L (35-51); VBG PH 7.33 mmol/L (7.31-7.41)
[2020-06-20 18:16] LABS: Acetaminophen < 10 ug/ml (10-30); Ethyl Alcohol < 10 mg/dl (0-10); Salicylate < 1.0 mg/dL (2.0-20.0)
[2020-06-20 19:21] LABS: Adenovirus,PCR Not Detected (NotDetected); Bordetella Pertussis Not Detected (NotDetected); Chlamydophila Pneumoniae, PCR Not Detected (NotDetected); Coronavirus 19, PCR Not Detected (NotDetected); Coronavirus 229E Not Detected (NotDetected); Coronavirus NL63 Not Detected (NotDetected); Coronavirus OC43 Not Detected (NotDetected); Coronovirus HKU1,PCR Not Detected (NotDetected); Human Metapneumovirus Not Detected (NotDetected); Influenza A, PCR Not Detected (NotDetected); Influenza AH1, 2009 Not Detected (NotDetected); Influenza AH1, PCR Not Detected (NotDetected); Influenza AH3,PCR Not Detected (NotDetected); Influenza B, PCR Not Detected (NotDetected); Mycoplasma Pneumoniae, PCR Not Detected (NotDetected); Parainfluenza 1, PCR Not Detected (NotDetected); Parainfluenza 2, PCR Not Detected (NotDetected); Parainfluenza 3, PCR Not Detected (NotDetected); Parainfluenza 4, PCR Not Detected (NotDetected); Respiratory Syncytial Virus Not Detected (NotDetected); Rhinovirus/Enterovirus Not Detected (NotDetected)
--- NOTE | 2020-06-20 19:22 | PC.NURSE ---
CT report given to
[2020-06-20 20:05] LABS: Ammonia 12 umol/L (9-30); Lactic Acid 1.9 mmol/L (0.7-2.1)
[2020-06-20 20:33] LABS: Microscopic, Urine URINE MICROSCOPIC (MICROSCOPIC)
[2020-06-20 20:56] LABS: Appearance,Urine CLEAR (Clear); Bilirubin,Urine Negative (Negative); Blood, Urine Negative (Negative); Color,Urine YELLOW (Yellow); Glucose,Urine (UA) Negative (Negative); Ketones,Urine Negative (Negative); Leukocyte Esterase,Urine Negative (Negative); Nitrate,Urine Negative (Negative); PH,Urine 7.5 (5.0-8.5); Protein,Urine Negative (Negative); Specific Gravity, Urine 1.015 (1.005-1.030)
[2020-06-20 21:11] LABS: Bacteria,Urine Trace /lpf
[2020-06-20 21:12] LABS: Troponin I < 0.01 ng/ml (0.00-0.034)
--- NOTE | 2020-06-20 23:03 | PC.NURSE ---
PT ARRIVED TO FLOOR VIA STRETCHER FROM ED/W STAFF AT [id number]
[2020-06-21 00:18] LABS: Troponin I < 0.01 ng/ml (0.00-0.034)
--- NOTE | 2020-06-21 03:09 | PC.NURSE ---
A&OX3. PT IS VERY LETHARGIC. PT AROUSED BY LOUD VOICE OR TOUCH. PT ONLY ABLE TO ANSWER SOME SIMPLE QUESTIONS. WORDS ARE SLURRED AND QUIET. FC IN PLACE DRAINING DARK YELLOW URINE. PT HAS SLEPT T/O SHIFT. NO C/O THUS FAR. VSS WILL CONTINUE TO MONITOR.
[2020-06-21 04:00] VITALS: BP 113/74; PULSE 76; PULSE 80; RESP 18; TEMP 36.9; O2SAT 98
[2020-06-21 05:35] VITALS: BMI 21.1
[2020-06-21 07:20] LABS: Basophils % 0.6 % (0.1-2.0); Eosinophils # 0.2 K/mm3 (0.0-0.4); Eosinophils % 2.7 % (0.1-12.0); Lymphocytes # 2.1 K/mm3 (0.7-4.5); Lymphocytes % 25.9 % (10-50); Mean Corpuscular Hemoglobin 30.8 pg (27.0-31.2); Mean Corpuscular Volume 96.3 fl (80-94); Mean Platelet Volume 7.5 fl (7.4-10.4); Monocytes # 0.7 K/mm3 (0.1-1.0); Neutrophils # 4.9 K/mm3 (1.8-7.8); Neutrophils % 61.9 % (37.0-80.0); Platelet Count 293 K/mm3 (142-424); Red Blood Count 3.95 M/mm3 (4.60-6.20); Red Cell Distribution Width 16.9 % (11.5-17.5); White Blood Count 7.9 K/mm3 (4.8-10.8)
--- NOTE | 2020-06-21 07:23 | P.CONPHA_ITS ---
[facility] Pharmacy VTE Monitoring - Patient Demographics Admission date: 06/20/20 Report Date: 06/21/20 Time: 07:23 Allergies/Adverse Reactions: Patient Allergies RISPERIDONE Allergy (Intermediate, Uncoded 02/23/17 15:36) I-RASH Height: 1.85 m Weight: 72.32 kg Patient Problems: Current Active Problems Altered mental status (Acute) - VTE Risk Labs: VTE Related Lab Results Hgb 13.6 g/dL (14.1-18.0) L 06/20/20 17:15 Hct 42.2 % (42.0-52.0) 06/20/20 17:15 Plt Count 357 K/mm3 (142-424) 06/20/20 17:15 BUN 9 mg/dl (9-20) 06/20/20 17:15 Creatinine 0.90 mg/dl (0.66-1.25) 06/20/20 17:15 Estimated Creat Clear 104 mL/min (50-200) 06/20/20 17:15 - Prophylaxis VTE Prophylaxis Ordered?: Yes Types of VTE Prophylaxis: TEDS Knee High Location of Applied Device: Bilateral Lower Extremeties
[2020-06-21 07:32] LABS: Cholesterol 99 mg/dl (140-200); Magnesium 1.6 mg/dl (1.6-2.3); Triglycerides 199 mg/dl (30-150); VLDL Cholesterol 40 mg/dL (0-40)
[2020-06-21 07:33] LABS: Chloride 103 mmol/L (98-107); Chol/HDL Ratio 3.4 (1-3.5); HDL Cholesterol 29 mg/dl (40-60); Potassium 3.4 mmoL/L (3.5-5.1); Sodium 136 mmol/L (136-145)
[2020-06-21 07:35] LABS: Blood Urea Nitrogen 9 mg/dl (9-20); Creatinine Clearance Estimated 125 mL/min (50-200); Estimated Glomerular Filt Rate 118 ml/min (>60); GFR (African American) 143 ML/MIN (>60)
[2020-06-21 07:36] LABS: Alanine Aminotransferase 17 U/L (12-78); Albumin Level 3.4 g/dl (3.5-5.0); Albumin/Globulin Ratio 1.4 (1.1-1.8); Alkaline Phosphatase 142 U/L (38-126); Anion Gap 8.4 mEq/L (5-15); Aspartate Amino Transferase 27 U/L (17-59); Bilirubin,Total 0.7 mg/dl (0.2-1.3); Calcium 9.3 mg/dl (8.4-10.2); Carbon Dioxide 28 mmol/L (22.0-30.0); Globulin 2.5 g/dL (1.3-3.2); Glucose 100 mg/dl (74-100); Total Protein,Serum 5.9 g/dl (6.3-8.2)
[2020-06-21 07:41] LABS: Phosphorous 1.3 mg/dl (2.5-4.5)
[2020-06-21 07:45] LABS: Hemoglobin 12.2 g/dL (14.1-18.0)
--- NOTE | 2020-06-21 07:47 | HMH.PHAINT ---
MEDICATION RECONCILIATION COMPLETED ON PATIENT USING MAR FROM [facility]ISON. -TERESA PICHARDO, [place]
[2020-06-21 08:00] VITALS: BP 114/72; PULSE 80; PULSE 85; RESP 16; TEMP 36.6; O2SAT 98
[2020-06-21 08:02] LABS: Thyroid Stimulating Hormone 2.97 uIU/mL (0.465-4.68)
--- NOTE | 2020-06-21 08:59 | CT_ITS ---
PROCEDURE: CT HEAD/BRAIN W CON CLINICAL INDICATION: AMS worsening altered mental status. Altered mental status, altered level of consciousness, confusion, disorientation COMPARISON: CT CT HEAD/BRAIN WO CON from 06/20/[address] ANGIO HEAD from 06/20/2020 TECHNIQUE: IV Contrast: 100ML Isovue 370 Axial images obtained. All CT scans at the facility use one or more dose reduction, viz: automated exposure control, ma/kV adjustment per patient size (including targeted exams where dose is matched to indication, i.e. head), or iterative reconstruction technique. FINDINGS: No midline shift, mass effect, intracranial hemorrhage, hydrocephalus, or extra-axial fluid collection is evident. There is generalized atrophy with hypoattenuation of the periventricular white matter consistent with microangiopathic changes. No enhancing lesions are evident. No evidence of large acute infarction. The calvarium has an unremarkable appearance. No mastoid effusion . Mild mucosal thickening of the left maxillary sinus with moderate opacification of the ethmoid sinuses, severe opacification of the central and left aspect of the frontal sinus and mucosal thickening of the right frontal sinus and left aspect of the sphenoid sinus. IMPRESSION: 1. No acute intracranial findings. There is mild generalized atrophy. 2. No enhancing lesions apparent. 3. Sinusitis Dictated by: Alfredo Rubio MD 06/21/2020 09:57 Alfredo Rubio MD in [place] 06/21/2020 09:57
--- NOTE | 2020-06-21 09:16 | CT_ITS ---
PROCEDURE: CT ABDOMEN PELVIS WO CON CLINICAL INDICATION: abd pain Abdominal pain with dark urine COMPARISON: CT CT ABDOMEN PELVIS W CON from 05/16/2020 TECHNIQUE: Axial images obtained with sagittal and coronal reformats. All CT scans at the facility use one or more dose reduction, viz: automated exposure control, ma/kV adjustment per patient size (including targeted exams where dose is matched to indication, i.e. head), or iterative reconstruction technique. FINDINGS: LOWER THORAX: Atelectatic changes in the lung bases with trace bilateral effusions. ABDOMEN & PELVIS: Hyperdensity noted in the posterior aspect of the gallbladder may be related to vicarious excretion of contrast. Small layering gallstones could have a similar appearance. No focal liver lesion. No acute finding of the spleen. The pancreas and adrenal glands have an unremarkable appearance. Small amount of contrast is present within the kidneys from recent CT a. this precludes a diagnosis of small renal stones. No hydronephrosis. No ureteral dilatation. No evidence of appendicitis. No intestinal obstruction or free air. There is a mild amount of retained colonic feces somewhat hyperdense. Garza catheter is present. Small amount air is present in urinary bladder. Contrast is present in the urinary bladder. No obvious bladder mass. There is a small left inguinal hernia containing fat. No acute bony findings. There is mild chronic wedging of L1. IMPRESSION: 1. Constipation. 2. Hyperdensity posterior aspect of the gallbladder which may be due to vicarious excretion of contrast or tiny layering stones 3. Small bilateral pleural effusions Dictated by: Alfredo Rubio MD 06/21/2020 10:04 Alfredo Rubio MD in [place] 06/21/2020 10:04
[2020-06-21 09:34] LABS: Valproic Acid, (Depakene) 49.5 ug/ml (50-100)
[2020-06-21 12:00] VITALS: BP 112/67; PULSE 80; PULSE 84; RESP 15; TEMP 37; O2SAT 96
--- NOTE | 2020-06-21 12:56 | SW/DCPLANNER ---
Addendum entered by Keiry Harp 06/24/20 11:23: FAXED PT MALDONADO TO [facility] TO INFORM HER THAT THERAPY THINKS HE IS SAFE ENOUGH TO RETURN BACK TO [facility]... HE IS A RESIDENT THERE AND THEY ARE COMING TO LOOK AT HIM BEFORE WE CAN DISCHARGE HIM BACK... Original Note: This patient currently resides at [facility]. I have spoke with Jay/Anne Marie from [facility]. Jay stated that patient has not been doing well for awhile but placement process has not started due to Dr Coombs appointments. Patient will possibly need placement at time of discharge if not improved. Patient is not ready for discharge at this time. CM will continue to follow up with: MD katerine and Jay from [facility].
[2020-06-21 15:46] VITALS: BMI 21.0
[2020-06-21 16:00] VITALS: BP 111/72; PULSE 86; RESP 16; TEMP 36.6; O2SAT 100
--- NOTE | 2020-06-21 17:34 | PC.NURSE ---
Pt has slept most of the day. Pt has been arousable to his name, but then quickly goes back to sleep. Pt is able to follow commands after asking him more than once. Pt is oriented to his name, , and his current location, but confused on time. Garza cath continues to be patent and is draining clear, dark yellow urine. Pt is currently sitting up in bed at this time and is tolerating regular diet fine. Lung sounds CTA. Bowel sounds active in all 4 quads, no BM noted this shift. Pt did receive a bed bath and linen change this shift. No other acute changes or complaints at this time.
--- NOTE | 2020-06-21 17:53 | HMH.HP ---
*Admission Date: 06/20/20 *Chief complaint: ams *History of present illness: 54-year-old male presents with generalized weakness and altered mental status from a personal detention. per staff He reportedly had just placed a patch of rotigotine recently and has become more confused with ams. No fever no chills. No abdominal pain chest pain headaches. He is a poor historian. Per staff and ed note pt is usually alert and oriented x3. pt admitted for further work up [facility] History I have reviewed the patient's past medical history: Yes Medical History: Reports:: Arrhythmia, Depression, Diabetes Mellitus Type 1, Diabetes Mellitus Type 2, Gastroesophageal Reflux Disease(GERD), Hyperlipidemia, Hypertension *Have you ever received a pneumonia vaccine?: No *Have you received a flu vaccine this season?: No Other Medical History: Reports: Other (schizophrenia) Other Surgeries: Yes: No Previous Surgery - *Social History Smoking Status: Former smoker Tobacco Type: cigarettes Alcohol Intake: never Substance Use Type: denies use *Occupational Status:: disabled Housing: care home Household Members: other *Travel in the last 8 weeks: None - Psychiatric History Pschychiatric History:: Reports:: Depression Family Hx:: Unable to obtain Review of Systems - Review of Systems Review of systems:: unable to obtain - *Neurologic Reports confusion, Reports other, Denies dizziness, Denies numbness Meds Home Medications Medication Instructions Recorded Confirmed Type benztropine 2 mg tablet 2 mg PO BID tab 06/17/20 06/21/20 History calcium carbonate 200 mg calcium 1,000 mg PO TID tab 06/17/20 06/21/20 History (500 mg) chewable tablet clozapine 100 mg tablet 100 mg PO BID tab 06/17/20 06/21/20 History clozapine 50 mg tablet 50 mg PO BID tab 06/17/20 06/21/20 History divalproex 125 mg capsule,delayed 500 mg PO TID 06/17/20 06/21/20 History release sprinkle fenofibrate 160 mg tablet 160 mg PO DAILY tab 06/17/20 06/21/20 History metformin 1,000 mg tablet 1,000 mg PO BIDWM tab 06/17/20 06/21/20 History niacin 500 mg tablet 500 mg PO HS tab 06/17/20 06/21/20 History omega 3-gss-ixr-fish oil 300 2 cap PO BID cap 06/17/20 06/21/20 History mg-1,000 mg capsule omeprazole 40 mg capsule,delayed 40 mg PO DAILY cap 06/17/20 06/21/20 History release propranolol 60 mg capsule,24 60 mg PO DAILY cap 06/17/20 06/21/20 History hr,extended release sennosides 8.6 mg tablet 8.6 mg PO BID tab 06/17/20 06/21/20 History sertraline 25 mg tablet 25 mg PO DAILY tab 06/17/20 06/21/20 History simvastatin 20 mg tablet 20 mg PO HS tab 06/17/20 06/20/20 History sucralfate 100 mg/mL oral 1 gm PO QID ml 06/17/20 06/21/20 History suspension trazodone 150 mg tablet 150 mg PO HS tab 06/17/20 06/20/20 History Rotigotine [Neupro] 1 each TD WEEKLY 06/20/20 06/21/20 History Allergies Allergy/AdvReac Type Severity Reaction Status Date / Time RISPERIDONE Allergy Intermediate I-RASH Uncoded 02/23/17 15:36 Exam Vital signs and Labs for Last 24 Hours: Temp Pulse Resp BP Pulse Ox 97.9 F 86 16 111/72 100 06/21/20 16:00 06/21/20 16:00 06/21/20 16:00 06/21/20 16:00 06/21/20 16:00 Laboratory Results - last 24 hr 06/20/20 17:15: Troponin I < 0.01, TSH 2.65 06/20/20 17:15: Salicylates < 1.0 L, Acetaminophen < 10 L 06/20/20 17:15: Plasma/Serum Alcohol < 10 06/20/20 17:18: VBG pH 7.33, VBG pCO2 47.8, VBG pO2 28.0, VBG HCO3 24.5, VBG Total CO2 26.0, VBG O2 Saturation 52.1, VBG Base Excess -1.4 06/20/20 18:58: Chlamy pneumoniae PCR Not detected, Adenovirus (PCR) Not detected, B. pertussis DNA (PCR) Not detected, Coronavirus OC43 (PCR) Not detected, Coronavirus HKU1 (PCR) Not detected, Coronavirus 229E (PCR) Not detected, SARS-CoV-2 (PCR) Not detected, Coronavirus NL63 (PCR) Not detected, Human Metapneumovir PCR Not detected, Influenza A (H1) PCR Not detected, Influ A (H1N1/09) PCR Not detected, Influenza A (H3) PCR Not detected, Influenza
[2020-06-21 18:09] VITALS: PULSE 90
[2020-06-21 20:00] VITALS: BP 103/63; PULSE 100; PULSE 98; RESP 17; TEMP 37.1; O2SAT 96
--- NOTE | 2020-06-21 23:30 | PC.NURSE ---
Report received from Celio Flor RN.
--- NOTE | 2020-06-21 23:35 | PC.NURSE ---
PT IN BED RESTING AT THIS TIME. PT ABLE TO FOLLOW COMMANDS SUCH STICK OUT TONGUE, FOLLOW FINGERS, RAISE FEET, ETC. NO C/O THUS FAR. REPORT GIVEN TO Esteban SANABRIA RN.
[2020-06-22] VITALS (9 sets, daily range): BP systolic 93–130; BP diastolic 66–90; PULSE 75–110; RESP 15–18; TEMP 36.6–37.2; O2SAT 95–98; BMI 21.7
--- NOTE | 2020-06-22 04:13 | PC.NURSE ---
Pt to self and place. Has slept at intervals this shift. Pt states he has a cough this morning. Lungs are CTA. Pt has been tachycardic this shift. Other VSS. F/C draining to bedside with 525 cc total urine output thus far. NS infusing @ 50 ml/hr. Call light within reach. Safety measures in place. Will continue to monitor.
[2020-06-22 09:20] LABS: Basophils % 0.4 % (0.1-2.0); Eosinophils # 0.2 K/mm3 (0.0-0.4); Eosinophils % 3.2 % (0.1-12.0); Hematocrit 36.7 % (42.0-52.0); Lymphocytes # 1.9 K/mm3 (0.7-4.5); Mean Corpuscular HGB Conc 32.7 g/dL (31.8-35.4); Mean Corpuscular Hemoglobin 31.5 pg (27.0-31.2); Mean Corpuscular Volume 96.3 fl (80-94); Mean Platelet Volume 7.3 fl (7.4-10.4); Monocytes # 0.6 K/mm3 (0.1-1.0); Monocytes % 9.1 % (1.7-9.3); Neutrophils # 4.1 K/mm3 (1.8-7.8); Neutrophils % 60.2 % (37.0-80.0); Platelet Count 296 K/mm3 (142-424); Red Blood Count 3.81 M/mm3 (4.60-6.20); Red Cell Distribution Width 16.5 % (11.5-17.5); White Blood Count 6.9 K/mm3 (4.8-10.8)
[2020-06-22 09:27] LABS: Chloride 104 mmol/L (98-107); Sodium 136 mmol/L (136-145)
[2020-06-22 09:29] LABS: Potassium 2.8 mmoL/L (3.5-5.1)
[2020-06-22 09:30] LABS: Anion Gap 6.8 mEq/L (5-15); Blood Urea Nitrogen 7 mg/dl (9-20); Carbon Dioxide 28 mmol/L (22.0-30.0); Creatinine Clearance Estimated 128 mL/min (50-200); Estimated Glomerular Filt Rate 118 ml/min (>60); GFR (African American) 143 ML/MIN (>60)
[2020-06-22 09:31] LABS: Glucose 160 mg/dl (74-100)
--- NOTE | 2020-06-22 13:17 | HMH.ACPN2 ---
Internal Medicine - PN: Subj *Date: 06/22/20 *Time: 08:30 Interval history: pt more alert today and answers questions Exam Vital signs and Labs for Last 24 Hours: Temp Pulse Resp BP Pulse Ox 98.2 F 87 18 122/83 98 06/22/20 08:00 06/22/20 08:00 06/22/20 08:00 06/22/20 08:00 06/22/20 08:00 Laboratory Results - last 24 hr 06/22/20 08:55: WBC 6.9, RBC 3.81 L, Hgb 12.0 L, Hct 36.7 L, MCV 96.3 H, MCH 31.5 H, MCHC 32.7, RDW 16.5, Plt Count 296, MPV 7.3 L, Neut % (Auto) 60.2, Lymph % (Auto) 27.0, [place] % (Auto) 9.1, Eos % (Auto) 3.2, Baso % (Auto) 0.4, Neut # (Auto) 4.1, Lymph # (Auto) 1.9, [place] # (Auto) 0.6, Eos # (Auto) 0.2, Baso # (Auto) 0.0 06/22/20 08:55: Sodium 136, Potassium 2.8 L*, Chloride 104, Carbon Dioxide 28, Anion Gap 6.8, BUN 7 L, Creatinine 0.70, Estimated Creat Clear 128, Estimated GFR 118, Est GFR ( Amer) 143, Glucose 160 H, Calcium 9.0 I & O for Last 24 hours: Intake & Output 06/20/20 06/21/20 06/22/20 06/23/20 11:59 11:59 11:59 11:59 Intake Total 1414 / 1414 840 / 840 Output Total 800 / 800 1300 / 1300 Balance 614 / 614 -460 / -460 Weight 159 lb 7 oz 163 lb 9 oz - Constitutional no acute distress, chronically ill appearing - *Routine HEENT Exam Head: Present: normocephalic Eye: Present: PERRL ENT: Present: mucous membranes moist - *Routine Neck Exam Present: supple. Absent: lymphadenopathy - *Routine Respiratory Exam Present: CTA bilaterally - *Routine Cardiovascular Exam Present: RRR - *Routine Abdominal Exam Present: soft, normoactive bowel sounds. Absent: tenderness - *Routine Extremities Exam Present: normal capillary refill. Absent: cyanosis, clubbing, edema - *Routine Skin Exam Present: warm. Absent: rash - *Routine Neurological Exam Present: alert - Routine Psychiatric Exam Present: unable to assess Assessment and Plan (1) Altered mental status Status: Acute Category: Medical Code(s): R41.82 - Altered mental status, unspecified (2) Generalized weakness Status: Acute Category: Medical Code(s): R53.1 - Weakness (3) Schizophrenia Status: Acute Qualifiers: Schizophrenia type: other Qualified Code(s): F20.89 - Other schizophrenia Category: Medical Code(s): F20.9 - Schizophrenia, unspecified - Assessment and plan all Dx Assessment and Plan for all problems:: rounded with dr shah all orders per dr shah
--- NOTE | 2020-06-22 17:18 | PC.NURSE ---
Pt has been UTC most of this shift. Garza cath d/c'd this shift. Pt has been oriented to name, and place. Pt has been pleasant and more alert than prior shift. No other acute changes or complaints at this time.
[2020-06-23] VITALS (11 sets, daily range): BP systolic 105–149; BP diastolic 58–99; PULSE 80–102; RESP 15–18; TEMP 36.3–37.1; O2SAT 94–99; BMI 21.5
--- NOTE | 2020-06-23 04:28 | PC.NURSE ---
No acute changes noted. Pt is alert to self and place. No complaints voiced. Pt denies any discomfort. BP stable. Pt has been tachycardic at times this shift. Lungs are CTA. BS active. No other concerns. Will continue to monitor.
[2020-06-23 07:10] LABS: Basophils # 0.1 K/mm3 (0-0.2); Basophils % 0.9 % (0.1-2.0); Eosinophils # 0.2 K/mm3 (0.0-0.4); Eosinophils % 3.8 % (0.1-12.0); Hematocrit 31.2 % (42.0-52.0); Lymphocytes # 2.1 K/mm3 (0.7-4.5); Lymphocytes % 33.7 % (10-50); Mean Corpuscular HGB Conc 34.4 g/dL (31.8-35.4); Mean Platelet Volume 7.7 fl (7.4-10.4); Monocytes # 0.5 K/mm3 (0.1-1.0); Monocytes % 7.5 % (1.7-9.3); Neutrophils # 3.3 K/mm3 (1.8-7.8); Neutrophils % 54.1 % (37.0-80.0); Platelet Count 284 K/mm3 (142-424); Red Blood Count 3.36 M/mm3 (4.60-6.20); White Blood Count 6.1 K/mm3 (4.8-10.8)
[2020-06-23 07:11] LABS: Chloride 112 mmol/L (98-107)
[2020-06-23 07:12] LABS: Potassium 3.6 mmoL/L (3.5-5.1); Sodium 137 mmol/L (136-145)
[2020-06-23 07:15] LABS: Anion Gap 6.6 mEq/L (5-15); Blood Urea Nitrogen 7 mg/dl (9-20); Calcium 8.7 mg/dl (8.4-10.2); Carbon Dioxide 22 mmol/L (22.0-30.0); Creatinine Clearance Estimated 178 mL/min (50-200); Estimated Glomerular Filt Rate 174 ml/min (>60); GFR (African American) 210 ML/MIN (>60); Glucose 135 mg/dl (74-100)
[2020-06-23 07:22] LABS: Hemoglobin 10.7 g/dL (14.1-18.0)
--- NOTE | 2020-06-23 09:35 | HMH.ACPN2 ---
Internal Medicine - PN: Subj *Date: 06/23/20 *Time: 20:36 Interval history: pt with improvement and oob and will add meds Exam Vital signs and Labs for Last 24 Hours: Temp Pulse Resp BP Pulse Ox 97.8 F 93 H 16 149/99 H 99 06/23/20 07:40 06/23/20 07:40 06/23/20 07:40 06/23/20 07:40 06/23/20 08:00 Laboratory Results - last 24 hr 06/23/20 07:00: WBC 6.1, RBC 3.36 L, Hgb 10.7 L D, Hct 31.2 L, MCV 93.0, MCH 32.0 H, MCHC 34.4, RDW 17.0, Plt Count 284, MPV 7.7, Neut % (Auto) 54.1, Lymph % (Auto) 33.7, [place] % (Auto) 7.5, Eos % (Auto) 3.8, Baso % (Auto) 0.9, Neut # (Auto) 3.3, Lymph # (Auto) 2.1, [place] # (Auto) 0.5, Eos # (Auto) 0.2, Baso # (Auto) 0.1 06/23/20 07:00: Sodium 137, Potassium 3.6 D, Chloride 112 H, Carbon Dioxide 22 D, Anion Gap 6.6, BUN 7 L, Creatinine 0.50 L D, Estimated Creat Clear 178, Estimated GFR 174, Est GFR ( Amer) 210 D, Glucose 135 H, Calcium 8.7 I & O for Last 24 hours: Intake & Output 06/20/20 06/21/20 06/22/20 06/23/20 11:59 11:59 11:59 11:59 Intake Total 1414 / 1414 840 / 840 1200 / 1200 Output Total 800 / 800 1300 / 1300 825 / 825 Balance 614 / 614 -460 / -460 375 / 375 Weight 159 lb 7 oz 163 lb 9 oz 162 lb 6 oz - Constitutional no acute distress - *Routine HEENT Exam Head: Present: normocephalic Eye: Present: EOMI, PERRL ENT: Present: mucous membranes dry - *Routine Neck Exam Present: supple. Absent: JVD - *Routine Respiratory Exam Present: CTA bilaterally - *Routine Cardiovascular Exam Present: RRR, murmur - *Routine Abdominal Exam Present: soft - *Routine Extremities Exam Absent: calf tenderness Comments: tremor and increased tone upper ext bilat - *Routine Skin Exam Present: intact - *Routine Neurological Exam Present: alert, CN II-XII intact, moving all extremities, tremors. Absent: altered mental status - Routine Psychiatric Exam Absent: good insight Assessment and Plan (1) Altered mental status Status: Acute Category: Medical Code(s): R41.82 - Altered mental status, unspecified (2) Generalized weakness Status: Acute Category: Medical Code(s): R53.1 - Weakness (3) Schizophrenia Status: Acute Qualifiers: Schizophrenia type: other Qualified Code(s): F20.89 - Other schizophrenia Category: Medical Code(s): F20.9 - Schizophrenia, unspecified (4) Hypokalemia Status: Acute Category: Medical Code(s): E87.6 - Hypokalemia (5) Hypophosphatemia Status: Acute Category: Medical Code(s): E83.39 - Other disorders of phosphorus metabolism
--- NOTE | 2020-06-23 16:07 | PC.NURSE ---
Pt has been extremely pleasant this shift. Pt has been [facility] majority of this shift listening to music. Lung sounds remain CTA, no cough noted. Pt has urinated per urinal and toilet, urinating clear, dark yellow urine. Active bowel sounds in all 4 quads, no BM noted. No other acute changes or complaints at this time.
[2020-06-24] VITALS: PULSE 70
[2020-06-24 03:55] VITALS: BP 101/69; PULSE 81; RESP 15; TEMP 36.8; O2SAT 99
[2020-06-24 04:00] VITALS: PULSE 80
--- NOTE | 2020-06-24 04:33 | PC.NURSE ---
Pt. able to state name, , place, month, unable to state year. Tremors noted; able to follow commands and state needs. Pt. has not c/o n/v/d, soa, dizziness or pain this shift.
[2020-06-24 05:00] VITALS: BMI 21.4
[2020-06-24 06:25] LABS: Basophils # 0.1 K/mm3 (0-0.2); Basophils % 0.8 % (0.1-2.0); Eosinophils # 0.2 K/mm3 (0.0-0.4); Eosinophils % 3.9 % (0.1-12.0); Hematocrit 31.9 % (42.0-52.0); Hemoglobin 10.5 g/dL (14.1-18.0); Lymphocytes # 3.1 K/mm3 (0.7-4.5); Lymphocytes % 49.1 % (10-50); Mean Corpuscular Hemoglobin 31.8 pg (27.0-31.2); Mean Corpuscular Volume 96.4 fl (80-94); Mean Platelet Volume 7.9 fl (7.4-10.4); Monocytes # 0.6 K/mm3 (0.1-1.0); Monocytes % 8.8 % (1.7-9.3); Neutrophils # 2.4 K/mm3 (1.8-7.8); Neutrophils % 37.4 % (37.0-80.0); Platelet Count 302 K/mm3 (142-424); Red Blood Count 3.31 M/mm3 (4.60-6.20); Red Cell Distribution Width 16.8 % (11.5-17.5); White Blood Count 6.3 K/mm3 (4.8-10.8)
[2020-06-24 06:36] LABS: Chloride 112 mmol/L (98-107); Potassium 3.5 mmoL/L (3.5-5.1); Sodium 138 mmol/L (136-145)
[2020-06-24 06:39] LABS: Anion Gap 9.5 mEq/L (5-15); Blood Urea Nitrogen 10 mg/dl (9-20); Calcium 8.9 mg/dl (8.4-10.2); Carbon Dioxide 20 mmol/L (22.0-30.0); Creatinine Clearance Estimated 127 mL/min (50-200); Estimated Glomerular Filt Rate 118 ml/min (>60); GFR (African American) 143 ML/MIN (>60); Glucose 152 mg/dl (74-100)
[2020-06-24 08:00] VITALS: BP 106/70; PULSE 70; PULSE 82; RESP 18; TEMP 36.9; O2SAT 98
--- NOTE | 2020-06-24 08:34 | SW/DCPLANNER ---
Addendum entered by Keiry Harp 06/24/20 14:31: [facility] WILL BE TAKING PATIENT BACK TO HIS PERSONAL NURSING HOME.... Addendum entered by Keiry Harp 06/24/20 13:56: FAXED PATIENT INFORMATION TO TONI AT [facility] AND ORDERED A ROLLING WALKER FOR THIS PATIENT FROM [facility]... HE ALSO HAS AN APPT WITH DR DELEON @3:00... DISCHARGING BACK TO [facility].... Original Note: [facility] ST[facility] DURING ROUNDS ONCE PHYSICAL THERAPY SEES HIM AND MAKES SURE HE CAN WALK SAFELY HE CAN RETURN BACK THERE... I HAVE CALLED [facility] AND ASKED FOR SOMEONE TO COME AND SEE HIM TO MAKE SURE THEY ARE GOING TO TAKE HIM BACK...HE WILL DISCHARGE LATER TODAY PENDING HIS PT CONSULT...
--- NOTE | 2020-06-24 09:34 | HMH.OTEV ---
OT Inpatient Evaluation Rehab OT IP Evaluation Start: 06/24/20 08:37 Freq: ONCE Status: Complete Protocol: Document 06/24/20 09:30 ROSADAVID (Rec: 06/24/20 09:33 PODIEUDONNE [id number]) Rehab OT IP Assessment Subjective History *Admission Date: 06/20/20 *Chief complaint: ams *History of present illness: 54-year-old male presents with generalized weakness and altered mental status from a personal intermediate. per staff He reportedly had just placed a patch of rotigotine recently and has become more confused with ams. No fever no chills. No abdominal pain chest pain headaches. He is a poor historian. Per staff and ed note pt is usually alert and oriented x3. pt admitted for further work up [facility] History I have reviewed the patient's past medical history: Yes Medical History: Reports:: Arrhythmia, Depression, Diabetes Mellitus Type 1, Diabetes Mellitus Type 2, Gastroesophageal Reflux Disease(GERD), Hyperlipidemia, Hypertension Patient currently lives in personal home at [facility] where he is independent with ADLs and fx'l mobility. Nursing provides medication. Subjective Patient completed toileting task with SUP for safety no LOB noted. Instructed Patient on safety awareness while ambulating within the facility with LOB noted x1 2* weakness and fatigue. Patient able to complete d/d of footwear independently in seated position. Objective Patient Orientation Person,Place,Time,Birthday, Year Upper Extremity Gross ROM WNL Bed Mobility bed mobility - supine/sit Assist Level Independent Transfer Training
--- NOTE | 2020-06-24 10:21 | HMH.PTEV ---
Physical Therapy Evaluation Rehab PT IP Evaluation Start: 06/24/20 08:37 Freq: .once Status: Active Protocol: Document 06/24/20 10:17 RICO (Rec: 06/24/20 10:21 RICO [id number]) Subjective/History History History Pt is a resident of local personal correction admitted to [facility] thru ED for AMS Subjective Subjective no complaints from pt - pt unaware of year in orientation questions Rehab PT IP Eval Objective Appearance Patient Behavior Cooperative Patient Orientation Person,Place Difficulty following instructions none Speech Pattern Delayed,Soft-Spoken Ambulation Patient Able to Ambulate Yes Ambulation Observation IP General Gait Pattern Observation Ataxic Gait,Shuffling Step Ambulation Distance (feet) 50 Ambulation Assistive Device None Ambulation Ability Supervision/Stand by Balance Ability to Arise Able, uses arms to help Sitting Balance Steady, safe Standing Balance Narrow stance w/o support Dynamic Sitting Balance Ability Good Dynamic Standing Balance Ability Fair Transfers Bed Transfer Ability Independent Chair Transfer Ability Independent Sit to Stand Bed Transfer Ability Independent Sit to Stand Chair Transfer Ability Independent ROM All Extremities PT ROM Status WFL MMT All Extremities PT MMT WFL Rehab PT IP prob,goals,plan Problems Date of Evaluation: 06/24/20 PT IP Problems Gait Rehab Potential Rehab Potential Good Equipment Needs Assistive Devices None / NA Plan PT Intervention Plan Gait,Therapeutic Exercise PT Plan Frequency BID Duration LOS Discharge Goals Bed Transfer Ability Independent Sit to Stand Chair Transfer Ability Independent Ambulation Assistive Device None Ambulation Distance (feet) 50 Discharge Plan PT Discharge Plan pt safe to return to personal correction once medically stable G -code Required No PHYSICIAN CERTIFICATION: I certify the specified therapy services for Ney Snyder are required, authorized, and reviewed every 30 days.
[2020-06-24 11:40] VITALS: BP 124/78; PULSE 82; RESP 18; TEMP 36.8; O2SAT 99
[2020-06-24 12:00] VITALS: PULSE 80
--- NOTE | 2020-06-24 12:14 | PC.NURSE ---
PT IS SITTING UP IN BED EATING LUNCH AT THIS TIME. PT DOES NOT COMPLAIN OF ANY DISCOMFORT BUT DOES HAVE A ILL APPEARANCE. ACCORDING TO STAFF FROM [facility] PT HAS HAD THIS ILL APPEARANCE FOR SOMETIME NOW. PT IS VERY PALE IN COLOR, DARK CIRCLES AROUND THE EYES, AND THIN. PT STATED HE WAS NOT AWARE IF HE HAS HAD ANY RECENT WEIGHT LOSS. EATS AND DRINKS WELL. PT HAS A FLAT AFFECT BUT WILL ANSWER ALL ORIENTATION QUESTIONS APPROPRIATELY. PT STATES HE HAS BEEN LIVING AT [facility] FOR 10 YEARS NOW. PT STATES HE WAS LIVING AROUND [place] BEFORE HE CAME TO [facility]. LUNG SOUNDS CLEAR. ABDOMEN SOFT/NON TENDER WITH ACTIVE BOWEL SOUNDS. PT STATED HE HAD A BOWEL MOVEMENT EARLY THIS MORNING AND HE IS NOT HAVING ANY ISSUES WITH URINATING. VSS. PT IS ABLE TO GET OOB WITH STANDBY ASSIST W/O DIFFICULTY. WILL CONTINUE TO MONITOR.
--- NOTE | 2020-06-24 13:17 | PC.NURSE ---
Addendum entered by Emilee Benitez RN 06/24/20 17:18: [facility] called and stated it was in pt's discharge to continue pt's neupro patch and clozapine although it was held the 3 days pt was here and pt became more alert and back to baseline. Notified and he stated that the neupro patch and clozapine needed to be stopped for now. Notified [facility] to let them know what wanted. Original Note: PT WILL NEED A WALKER FOR AMBULATION FOR UNSTEADY GAIT DUE TO TREMORS
--- NOTE | 2020-06-24 14:34 | HMH.DCSUM ---
General - General Admission date:: 06/20/20 Discharge date: 06/24/20 HPI HPI: 54-year-old male presents with generalized weakness and altered mental status from a personal intermediate. per staff He reportedly had just placed a patch of rotigotine recently and has become more confused with ams. No fever no chills. No abdominal pain chest pain headaches. He is a poor historian. Per staff and ed note pt is usually alert and oriented x3. pt admitted for further work up Hospital Course Hospital Course: pt has slowly improved since admit as all sedating meds and new patch med were held - he has been able to tolerate diet and activity - is aware of self and place - labs have been stable and restated meds and tolerated lower doses -no sepsis or cva was noted and he was d/c to [facility] stable Objective Vital signs: Temp Pulse Resp BP Pulse Ox 98.3 F 82 18 124/78 99 06/24/20 11:40 06/24/20 11:40 06/24/20 11:40 06/24/20 11:40 06/24/20 11:40 no acute distress, thin - *Routine HEENT Exam Head: Present: normocephalic Eye: Present: EOMI, PERRL. Absent: nystagmus ENT: Present: mucous membranes dry - *Routine Neck Exam Absent: JVD - *Routine Respiratory Exam Present: decreased breath sounds - *Routine Cardiovascular Exam Present: RRR, murmur, S4 - *Routine Abdominal Exam Present: soft - *Routine Extremities Exam Absent: calf tenderness - *Routine Skin Exam Present: intact - *Routine Neurological Exam Present: alert, oriented X3, CN II-XII intact, tremors. Absent: normal tone - Routine Psychiatric Exam Present: cooperative. Absent: good insight, paranoid Results Labs on day of discharge: Labs from last 24 hours 06/24/20 06/24/20 05:46 05:46 WBC 6.3 RBC 3.31 L Hgb 10.5 L Hct 31.9 L MCV 96.4 H MCH 31.8 H MCHC 33.0 RDW 16.8 Plt Count 302 MPV 7.9 Neut % (Auto) 37.4 Lymph % (Auto) 49.1 [place] % (Auto) 8.8 Eos % (Auto) 3.9 Baso % (Auto) 0.8 Neut # (Auto) 2.4 Lymph # (Auto) 3.1 [place] # (Auto) 0.6 Eos # (Auto) 0.2 Baso # (Auto) 0.1 Sodium 138 Potassium 3.5 Chloride 112 H Carbon Dioxide 20 L Anion Gap 9.5 BUN 10 D Creatinine 0.70 D Estimated Creat Clear 127 Estimated GFR 118 Est GFR ( Amer) 143 D Glucose 152 H Calcium 8.9 DS: Diagnosis - Discharge Diagnosis (1) Altered mental status Status: Acute (2) Generalized weakness Status: Acute (3) Schizophrenia Status: Acute (4) Hypokalemia Status: Acute (5) Hypophosphatemia Status: Acute (6) Sinusitis Status: Acute (7) Constipation Status: Acute Discharge Plan - Patient Discharge Instructions ACTIVITY: Continue current activity DIET: continue same diet Patient Instructions: DI for Altered Mental Status, Catheter-associated Urinary Tract Infection - Follow up Plan Follow up with: Elzbieta Coombs MD [Staff Physician] - 07/11/20 3:00 pm Disposition: Home, Self-Alf Medications: Home Medications Medication Instructions Recorded Confirmed Type benztropine 2 mg tablet 2 mg PO BID tab 06/17/20 06/21/20 History calcium carbonate 200 mg calcium 1,000 mg PO TID tab 06/17/20 06/21/20 History (500 mg) chewable tablet clozapine 100 mg tablet 100 mg PO BID tab 06/17/20 06/21/20 History clozapine 50 mg tablet 50 mg PO BID tab 06/17/20 06/21/20 History divalproex 125 mg capsule,delayed 500 mg PO TID 06/17/20 06/21/20 History release sprinkle fenofibrate 160 mg tablet 160 mg PO DAILY tab 06/17/20 06/21/20 History metformin 1,000 mg tablet 1,000 mg PO BIDWM tab 06/17/20 06/21/20 History niacin 500 mg tablet 500 mg PO HS tab 06/17/20 06/21/20 History omega 2-qpw-nil-fish oil 300 2 cap PO BID cap 06/17/20 06/21/20 History mg-1,000 mg capsule omeprazole 40 mg capsule,delayed 40 mg PO DAILY cap 06/17/20 06/21/20 History release propranolol 60 mg capsule,24 60 mg PO DAILY cap
[2020-08-19 11:06] LABS: POC Glucose,Bedside 112 (70-110)
== END 2020-06-24 15:40 | disposition home or self-care (01) ==
LOC: ER 19:23 → 2ND 19:30
PROVIDERS: Nurse Practitioner Family; Admitting Provider Family Medicine; Emergency Provider Emergency Medicine; PCP Emergency Medicine; Visit Provider Emergency Medicine
DX: R41.82 Altered mental status, unspecified (principal); E11.9 Type 2 diabetes mellitus without complications; I10 Essential (primary) hypertension; Z79.84 Long term (current) use of oral hypoglycemic drugs; Z79.899 Other long term (current) drug therapy; E78.5 Hyperlipidemia, unspecified; Z87.891 Personal history of nicotine dependence; F20.89 Other schizophrenia; R53.1 Weakness; E87.6 Hypokalemia; E83.39 Other disorders of phosphorus metabolism; J32.9 Chronic sinusitis, unspecified; K59.00 Constipation, unspecified
CPT/HCPCS: 36415; 70450; 70460; 70496; 70498; 71045; 71275; 74176; 80048; 80053; 80061; 80164; 80329; 81001; 82140; 82803; 82962; 83605; 83690; 83735; 84100; 84443; 84484; 85025; 87581; 87633; 87798; 93005; 95819; 96365; 96367; 96375; 97116; 97165; 97530; 99284; G0378; Q9967

== ENCOUNTER → 2021-01-02 07:45 | Outpatient (CLI) | payer MEDICAID, SELFPAY ==
[2021-01-02 08:07] LABS: Ammonia 42 umol/L (9-30)
== END ==
PROVIDERS: Visit Provider Emergency Medicine
DX: G40.89 Other seizures (principal); D51.9 Vitamin B12 deficiency anemia, unspecified; E72.20 Disorder of urea cycle metabolism, unspecified
CPT/HCPCS: 82140

== ENCOUNTER → 2021-03-31 12:41 | Outpatient (CLI) | payer MEDICAID, SELFPAY | PROVIDERS: PCP Emergency Medicine; Visit Provider Ophthalmology | DX: Z01.812 Encounter for preprocedural laboratory examination (principal); Z11.52 Encounter for screening for COVID-19 | CPT/HCPCS: C9803; U0003; U0005 ==

== ENCOUNTER 2021-04-01 08:28 | Day surgery (SDC) | payer MEDICAID, SELFPAY ==
[2021-04-01] VITALS (10 sets, daily range): BP systolic 135–158; BP diastolic 74–101; PULSE 74–93; RESP 16–18; TEMP 36.4–36.7; O2SAT 97–100; BMI 27.3
[2021-12-04 10:56] LABS: POC Glucose,Bedside 308 (70-110)
== END 2021-04-01 10:20 | disposition home or self-care (01) ==
LOC: OR 08:29
PROVIDERS: PCP Emergency Medicine; Visit Provider Ophthalmology
PROC: (CPT 66982; principal; 2021-04-01 12:00)
DX: H25.811 Combined forms of age-related cataract, right eye (principal); Z96.1 Presence of intraocular lens; H02.831 Dermatochalasis of right upper eyelid; H02.834 Dermatochalasis of left upper eyelid; H25.21 Age-related cataract, morgagnian type, right eye; F32.A Depression, unspecified; E11.9 Type 2 diabetes mellitus without complications; I10 Essential (primary) hypertension; F20.9 Schizophrenia, unspecified; Z88.8 Allergy status to other drugs, medicaments and biological substances; Z79.899 Other long term (current) drug therapy
CPT/HCPCS: 66982; 82962; V2632

== ENCOUNTER → 2021-04-07 11:48 | Outpatient (CLI) | payer MEDICAID, SELFPAY ==
[2021-04-07 12:34] LABS: Ammonia 14 umol/L (9-30)
[2021-04-07 15:31] LABS: Valproic Acid, (Depakene) 61.2 ug/ml (50-100)
[2021-04-07 16:14] LABS: Vitamin B12 335 pg/mL (239-931)
== END ==
PROVIDERS: PCP Emergency Medicine; Visit Provider Specialist
DX: G20 Parkinson's disease (principal)
CPT/HCPCS: 36415; 80164; 82140; 82607

== ENCOUNTER 2022-04-21 13:33 | Emergency (ER) | payer MEDICAID, SELFPAY ==
[2022-04-21] VITALS (10 sets, daily range): BP systolic 123–210; BP diastolic 63–126; PULSE 87–104; RESP 16–18; TEMP 36.7; O2SAT 94–97; BMI 25.9
--- NOTE | 2022-04-21 13:45 | XR_ITS ---
FINAL REPORT CLINICAL HISTORY: weak FINDINGS: A portable view of the chest was obtained. Comparison is made to a prior exam dated June 2020. Cardiac and mediastinal silhouettes are within normal limits. There are low lung volumes. There is worsening left basilar opacity. A small left pleural effusion has increased in size. There is no pneumothorax. IMPRESSION: Worsening left base opacity could represent atelectasis or pneumonia. Reviewed, Interpreted and Dictated by Reina Sun MD Transcribed by Heladio Carty Authenticated and [facility]
--- NOTE | 2022-04-21 13:45 | XR_ITS ---
FINAL REPORT CLINICAL HISTORY: fall COMPARISON: February 2019 FINDINGS: AP and frog leg views of the right hip were obtained with an AP pelvis. There is no acute fracture or dislocation. Degenerative joint disease is unchanged from the prior exam. The lesser trochanter has an abnormal appearance but is unchanged and may be due to an old fracture. Soft tissues are within normal limits. IMPRESSION: No acute osseous abnormality of the right hip. If pain persists, MR is recommended. Reviewed, Interpreted and Dictated by Reina Sun MD Transcribed by Heladio Carty Authenticated and [facility]
--- NOTE | 2022-04-21 13:48 | HMH.EDGENADL ---
Discharge Plan Disposition Patient Disposition: Home, Self-Care Condition: Good Prescriptions Prescriptions: No Action clozapine 50 mg tablet 50 mg PO BID divalproex 125 mg capsule, delayed rel sprinkle 500 mg PO BID omeprazole 40 mg capsule,delayed release(DR/EC) 40 mg PO DAILY propranolol 60 mg capsule,extended release 24 hr 60 mg PO DAILY simvastatin 20 mg tablet 20 mg PO HS omega 6-igj-axp-fish oil 300-1,000 mg capsule 2 cap PO BID benztropine 2 mg tablet 2 mg PO BID calcium carbonate 200 mg calcium (500 mg) tablet,chewable 1,000 mg PO TID Rx Instructions: unknown dose metformin 1,000 mg tablet 1,000 mg PO BID quetiapine 400 MG tablet 400 mg PO BID promethazine 25 MG tablet 25 mg PO Q4HP PRN (Reason: Nausea And Vomiting) ibuprofen 600 MG tablet 600 mg PO Q6HP PRN (Reason: pain) sennosides 8.6 MG tablet 8.6 mg PO BID trazodone 50 MG tablet 150 mg PO HS sucralfate 1 GM/10 ML suspension 10 ml PO QID sertraline 50 MG tablet 50 mg PO DAILY fenofibrate 160 MG tablet 160 mg PO DAILY niacin 500 MG tablet extended release 500 mg PO HS Referrals Follow up/Referrals: Provider,Referral, MD [Referring] - See instructions Activity Restrictions/Add. Instructions Additional Instructions/Restrictions: Continue your calcium supplement and have your calcium level rechecked later this week. Follow-up this week with your primary care provider for reassessment. Drink plenty of fluids to maintain hydration. Clinical Impressions Clinical Impression: Generalized weakness Discharge ED Provider: Krunal Anders General Adult HPI General Chief complaint: Fall Stated complaint: Weakness Time Seen by Provider: 04/21/22 13:39 History of Present Illness HPI narrative: Patient presents complaining of generalized weakness that began yesterday. He states he collapsed due to weakness and struck his right hip and does complain of right hip pain which is worse with walking. He denies additional injuries he denies head trauma. He denies recent fever, vomiting diarrhea chest pain or shortness of air his weakness is described as moderate to severe and without exacerbating alleviating symptoms Related Data Home Medications Medication Instructions Recorded Confirmed benztropine 2 mg tablet 2 mg PO BID Tremors 06/17/20 04/24/21 calcium carbonate 200 mg calcium 1,000 mg PO TID Supplement 06/17/20 04/24/21 (500 mg) chewable tablet clozapine 50 mg tablet 50 mg PO BID MOOD 06/17/20 04/24/21 divalproex 125 mg capsule,delayed 500 mg PO BID SEIZURES 06/17/20 04/24/21 release sprinkle omega 1-wcf-iog-fish oil 300 2 cap PO BID Supplement 06/17/20 04/24/21 mg-1,000 mg capsule omeprazole 40 mg capsule,delayed 40 mg PO DAILY GERD 06/17/20 04/24/21 release propranolol 60 mg capsule,24 60 mg PO DAILY Hypertension 06/17/20 04/24/21 hr,extended release simvastatin 20 mg tablet 20 mg PO HS Cholesterol 06/17/20 04/24/21 metformin 1,000 mg tablet 1,000 mg PO BID Diabetes 07/25/20 04/24/21 fenofibrate 160 mg tablet 160 mg PO DAILY unknown 03/28/21 04/24/21 ibuprofen 600 mg tablet 600 mg PO Q6HP PRN pain 03/28/21 04/24/21 niacin 500 mg tablet,extended 500 mg PO HS unknown 03/28/21 04/24/21 release promethazine 25 mg tablet 25 mg PO Q4HP PRN Nausea And 03/28/21 04/24/21 Vomiting quetiapine 400 mg tablet 400 mg PO BID mood 03/28/21 04/24/21 sennosides 8.6 mg tablet 8.6 mg PO BID constipation 03/28/21 04/24/21 sertraline 50 mg tablet 50 mg PO DAILY depresion 03/28/21 04/24/21 sucralfate 100 mg/mL oral 10 ml PO QID unknown 03/28/21 04/24/21 suspension trazodone 50 mg tablet 150 mg PO HS sleep 03/28/21 04/24/21 Allergies Allergy/AdvReac Type Severity Reaction Status Date / Time risperidone Allergy Intermediate Rash Verified 04/24/21 09:56 [facility] Disclaimer: The information contained in this secti
--- NOTE | 2022-04-21 13:59 | ECG_ITS ---
APPROVED REPORT Exam: Resting ECG HR:99 bpm ECG Measurements Heart Rate 99 AXES OH 126 P 30 QRSd 109 QRS 56 QT 343 T -3 QTc 400 Conclusion SINUS RHYTHM Isolated Q in III O/W NORMAL ECG UNCONFIRMED REPORT Electronically signed by : Paco Quick MD 04/21/2022 21:15:03
[2022-04-21 14:06] LABS: Basophils % 0.5 % (0.1-2.0); Eosinophils # 0.1 K/mm3 (0.0-0.4); Eosinophils % 1.8 % (0.1-12.0); Hematocrit 32.4 % (42.0-52.0); Hemoglobin 10.1 g/dL (14.1-18.0); Lymphocytes # 1.5 K/mm3 (0.7-4.5); Lymphocytes % 20.7 % (10-50); Mean Corpuscular HGB Conc 31.2 g/dL (31.8-35.4); Mean Corpuscular Hemoglobin 28.8 pg (27.0-31.2); Mean Corpuscular Volume 92.2 fl (80-94); Mean Platelet Volume 8.1 fl (7.4-10.4); Monocytes # 0.6 K/mm3 (0.1-1.0); Neutrophils # 4.9 K/mm3 (1.8-7.8); Neutrophils % 68.9 % (37.0-80.0); Platelet Count 306 K/mm3 (142-424); Red Blood Count 3.51 M/mm3 (4.60-6.20); Red Cell Distribution Width 17.3 % (11.5-17.5); White Blood Count 7.1 K/mm3 (4.8-10.8)
[2022-04-21 14:31] LABS: Chloride 107 mmol/L (98-107); Potassium 4.2 mmoL/L (3.5-5.1); Sodium 137 mmol/L (136-145)
[2022-04-21 14:34] LABS: Alanine Aminotransferase 43 U/L (12-78); Albumin Level 3.7 g/dl (3.5-5.0); Albumin/Globulin Ratio 1.3 (1.1-1.8); Alkaline Phosphatase 62 U/L (38-126); Anion Gap 16.2 mEq/L (5-15); Aspartate Amino Transferase 119 U/L (17-59); Bilirubin,Total 0.5 mg/dl (0.2-1.3); Blood Urea Nitrogen 11 mg/dl (9-20); Calcium 8.3 mg/dl (8.4-10.2); Carbon Dioxide 18 mmol/L (22.0-30.0); Creatinine Clearance Estimated 98 mL/min (50-200); Estimated Glomerular Filt Rate 69 ml/min (>60); GFR (African American) 84 ML/MIN (>60); Globulin 2.9 g/dL (1.3-3.2); Glucose 202 mg/dl (74-100); Total Protein,Serum 6.6 g/dl (6.3-8.2)
[2022-04-21 14:46] LABS: Troponin I 0.03 ng/ml (0.00-0.034)
[2022-04-21 15:02] LABS: Microscopic, Urine URINE MICROSCOPIC (MICROSCOPIC)
[2022-04-21 15:05] LABS: Appearance,Urine CLEAR (Clear); Blood, Urine 2+ (Negative); Color,Urine YELLOW (Yellow); Glucose,Urine (UA) Negative (Negative); Ketones,Urine 1+ (Negative); Leukocyte Esterase,Urine Negative (Negative); Nitrate,Urine Negative (Negative); PH,Urine 6.5 (5.0-8.5); Protein,Urine 2+ (Negative); Specific Gravity, Urine 1.025 (1.005-1.030); Urobilinogen,Urine 0.2 EU/dl (0.2)
[2022-04-21 15:11] LABS: Bilirubin,Urine 1+ (Negative)
[2022-04-21 15:16] LABS: Bacteria,Urine Trace /lpf; Squamous Epithelial Cell,Urine Occasional #/hpf (0-5)
[2022-04-21 15:20] LABS: Acetone, Serum (Rapid) None Detected (None Detect)
--- NOTE | 2022-04-21 15:41 | CT_ITS ---
FINAL REPORT TECHNIQUE: Thin section axial images were obtained from skull base to vertex without contrast. Coronal reconstruction images were obtained from the axial data. Exam was performed using dose reduction technique. CLINICAL HISTORY: weak COMPARISON: June 2020 FINDINGS: There is age-appropriate atrophy. There is no mass effect or midline shift. There is no intracranial hemorrhage. There is no hydrocephalus. Periventricular low density is likely related to changes of chronic small vessel ischemia. The basilar cisterns are preserved. The posterior fossa is without acute abnormality. There is mucoperiosteal thickening and all of the paranasal sinuses without air-fluid level. The soft tissues are without acute abnormality. No acute osseous abnormality is identified. IMPRESSION: No acute intracranial abnormality. Atrophy and changes suggesting chronic small vessel ischemia. Reviewed, Interpreted and Dictated by Reina Sun MD Transcribed by Heladio Carty Authenticated and [facility]
--- NOTE | 2022-04-21 16:03 | PC.NURSE ---
ROUNDED ON PT RESTING,CALL LIGHT AT BEDSIDE
--- NOTE | 2022-04-21 17:00 | PC.NURSE ---
ASST/STANDBY PT WALKING IN ROOM HE DID GOOD
--- NOTE | 2022-04-21 17:46 | PC.NURSE ---
PT IS RESTING AWAITING [facility] TO TAKE PT BACK TO [facility],CALL LIGHT AT BEDSIDE
--- NOTE | 2022-04-21 17:49 | PC.NURSE ---
PT IS RESTING IN BED,CALL LIGHT AT BEDSIDE
[2022-04-21 17:56] LABS: Calcium 8.8 mg/dl (8.4-10.2)
--- NOTE | 2022-04-21 18:13 | PC.NURSE ---
called [facility] for pt transport
== END 2022-04-21 18:36 | disposition home or self-care (01) ==
PROVIDERS: Emergency Provider Emergency Medicine; PCP Emergency Medicine
DX: R53.1 Weakness (principal)
CPT/HCPCS: 70450; 71045; 73502; 80053; 81001; 82009; 82310; 84484; 85025; 86850; 93005; 96360; 99285

== ENCOUNTER 2022-05-16 16:04 | Emergency (ER) | payer MEDICAID, SELFPAY ==
[2022-05-16] VITALS (8 sets, daily range): BP systolic 111–141; BP diastolic 55–90; PULSE 88–108; RESP 18–25; TEMP 36.6–38.6; O2SAT 94–99; BMI 28.2
--- NOTE | 2022-05-16 16:09 | CT_ITS ---
PROCEDURE INFORMATION: Exam: CT Head Without Contrast Exam date and time: 05/16/2022 5:16 PM Age: 56 years old Clinical indication: Fever; Additional info: AMS, fever w diarrhea x days TECHNIQUE: Imaging protocol: Computed tomography of the head without contrast. Radiation optimization: All CT scans at this facility use at least one of these dose optimization techniques: automated exposure control; mA and/or kV adjustment per patient size (includes targeted exams where dose is matched to clinical indication); or iterative reconstruction. REPORTING DATA: Count of CT and Cardiac NM exams in prior 12 months: This patient has received 3 known CTs and 0 known cardiac nuclear medicine studies in the 12 months prior to the current study. COMPARISON: CT HEAD/BRAIN WO CON 04/21/2022 3:51 PM FINDINGS: Brain: No intracranial hemorrhage. No evidence of acute territorial infarct or cerebral edema. Mild prominence of the cortical sulci consistent with age-appropriate intracerebral volume loss. Periventricular white matter tract changes consistent with microvascular disease. No mass effect or midline shift. Cerebral ventricles: No ventriculomegaly. Paranasal sinuses: Extensive pansinusitis. Findings have progressed particularly in the left frontal sinus. Mastoid air cells: Visualized mastoid air cells are well aerated. Bones/joints: Unremarkable. No acute fracture. Soft tissues: Unremarkable. IMPRESSION: 1. No evidence of acute intracranial abnormality. 2. Pansinusitis.
--- NOTE | 2022-05-16 16:09 | CT_ITS ---
PROCEDURE INFORMATION: Exam: CTA Neck With Contrast Exam date and time: 05/16/2022 5:18 PM Age: 56 years old Clinical indication: Weakness; Additional info: AMS, R sided weakness TECHNIQUE: Imaging protocol: Computed tomographic angiography of the neck with contrast. 3D rendering (Not supervised by radiologist): MIP and/or 3D reconstructed images were created by the technologist. Radiation optimization: All CT scans at this facility use at least one of these dose optimization techniques: automated exposure control; mA and/or kV adjustment per patient size (includes targeted exams where dose is matched to clinical indication); or iterative reconstruction. Contrast material: ISOVUE; Contrast volume: 100 ml; Contrast route: INTRAVENOUS (IV); REPORTING DATA: Count of CT and Cardiac NM exams in prior 12 months: This patient has received 3 known CTs and 0 known cardiac nuclear medicine studies in the 12 months prior to the current study. COMPARISON: CT ANGIO NECK 06/20/2020 6:26 PM FINDINGS: Right common carotid artery: No stenosis. No dissection or occlusion. Right internal carotid artery: No stenosis of the extracranial segment. No dissection or occlusion. Right external carotid artery: No occlusion or stenosis of the origin. Left common carotid artery: No stenosis. No dissection or occlusion. Left internal carotid artery: No stenosis of the extracranial segment. No dissection or occlusion. Left external carotid artery: No occlusion or stenosis of the origin. Right vertebral artery: No stenosis. No dissection or occlusion. Left vertebral artery: No stenosis. No dissection or occlusion. Paranasal sinuses: Significant mucosal thickening noted throughout the paranasal sinuses, greater on the left. Thyroid: 14 mm slightly hypodense left thyroid nodule measures slightly larger than previous. Thyroid gland is otherwise unremarkable. Soft tissues: Normal. No significant soft tissue swelling. Bones/joints: Mild multilevel degenerative changes noted throughout the cervical spine. IMPRESSION: 1. No carotid stenosis. Patent bilateral vertebral arteries 2. 14 mm left lobe thyroid nodule measures slightly larger than previous. Correlation with thyroid ultrasound recommended. 3. Significant findings of chronic bilateral paranasal sinusitis, greater on the left REFERENCES: NASCET CRITERIA. The degree of stenosis in the cervical segment of the internal carotid artery is based on NASCET criteria. Normal is no stenosis. Mild is less than 50% stenosis. Moderate is 50-69% stenosis. Severe is 70% to 99% stenosis. Total occlusion is no detectable patent lumen.
--- NOTE | 2022-05-16 16:09 | CT_ITS ---
PROCEDURE INFORMATION: Exam: CTA Head With Contrast, Arteriography Exam date and time: 05/16/2022 5:18 PM Age: 56 years old Clinical indication: Drowsiness or somnolence and weakness; Additional info: AMS, R sided weakness TECHNIQUE: Imaging protocol: Computed tomographic angiography of the head with contrast. Exam focused on the arteries. 3D rendering (Not supervised by radiologist): MIP and/or 3D reconstructed images were created by the technologist. Radiation optimization: All CT scans at this facility use at least one of these dose optimization techniques: automated exposure control; mA and/or kV adjustment per patient size (includes targeted exams where dose is matched to clinical indication); or iterative reconstruction. Contrast material: ISOVUE; Contrast volume: 100 ml; Contrast route: INTRAVENOUS (IV); REPORTING DATA: Count of CT and Cardiac NM exams in prior 12 months: This patient has received 3 known CTs and 0 known cardiac nuclear medicine studies in the 12 months prior to the current study. COMPARISON: CT ANGIO HEAD 06/20/2020 6:26 PM FINDINGS: ANTERIOR CIRCULATION: Right internal carotid artery: Intracranial segment is patent with no significant stenosis. No aneurysm. Right middle cerebral artery: No occlusion or significant stenosis. No aneurysm. Right anterior cerebral artery: No occlusion or significant stenosis. No aneurysm. Left internal carotid artery: Intracranial segment is patent with no significant stenosis. No aneurysm. Left middle cerebral artery: No occlusion or significant stenosis. No aneurysm. Left anterior cerebral artery: No occlusion or significant stenosis. No aneurysm. POSTERIOR CIRCULATION: Right vertebral artery: No occlusion or significant stenosis. No aneurysm. Left vertebral artery: No occlusion or significant stenosis. No aneurysm. Basilar artery: No occlusion or significant stenosis. No aneurysm. Right posterior cerebral artery: No occlusion or significant stenosis. No aneurysm. Left posterior cerebral artery: No occlusion or significant stenosis. No aneurysm. Brain: No definite mass, mass effect, or midline shift. Cerebral ventricles: No ventriculomegaly. Paranasal sinuses: Significant mucosal thickening noted in the paranasal sinuses, greater on the left. Bones/joints: Unremarkable. No acute fracture. Soft tissues: Unremarkable. IMPRESSION: 1. No intracranial large vessel stenosis or occlusion. 2. Significant findings of chronic paranasal sinusitis.
--- NOTE | 2022-05-16 16:09 | XR_ITS ---
PROCEDURE INFORMATION: Exam: XR Chest Exam date and time: 05/16/2022 5:22 PM Age: 56 years old Clinical indication: Patient HX: Diarrhea w fever x days TECHNIQUE: Imaging protocol: Radiologic exam of the chest. Views: 1 view. COMPARISON: CR XR CHEST AP 04/21/2022 2:15 PM FINDINGS: Lungs: Mild regions of peribronchial thickening. Findings suggest mild changes of bronchitis. Pleural spaces: Unremarkable. No pleural effusion. No pneumothorax. Heart/Mediastinum: Unremarkable. No cardiomegaly. Bones/joints: Unremarkable. Intraperitoneal space: Subdiaphragmatic free air suggested. IMPRESSION: 1. Subdiaphragmatic free air suggested. 2. Consider follow-up with computerized tomography of the abdomen and pelvis .
[2022-05-16 16:30] LABS: Coronavirus 19, PCR Not Detected (NotDetected); Influenza A, PCR Not Detected (NotDetected); Influenza B, PCR Not Detected (NotDetected)
[2022-05-16 16:31] LABS: VBG Base Excess -2.2 mmol/L (-2.4-2.3); VBG HCO3 22.4 mmol/L (23-30); VBG Oxygen Saturation 68.5 % (50-70); VBG PCO2 35.7 mmol/L (35-51); VBG PH 7.42 mmol/L (7.31-7.41); VBG Total CO2 23.5 mmol/L (23-27)
[2022-05-16 16:42] LABS: Basophils % 0.3 % (0.1-2.0); Eosinophils # 0.2 K/mm3 (0.0-0.4); Eosinophils % 1.7 % (0.1-12.0); Hematocrit 34.9 % (42.0-52.0); Hemoglobin 11.1 g/dL (14.1-18.0); Lymphocytes # 0.9 K/mm3 (0.7-4.5); Lymphocytes % 6.4 % (10-50); Mean Corpuscular HGB Conc 31.8 g/dL (31.8-35.4); Mean Corpuscular Hemoglobin 30.2 pg (27.0-31.2); Mean Platelet Volume 7.1 fl (7.4-10.4); Monocytes # 0.5 K/mm3 (0.1-1.0); Monocytes % 3.8 % (1.7-9.3); Neutrophils # 12.1 K/mm3 (1.8-7.8); Neutrophils % 87.9 % (37.0-80.0); Platelet Count 353 K/mm3 (142-424); Red Blood Count 3.67 M/mm3 (4.60-6.20); Red Cell Distribution Width 18.1 % (11.5-17.5); White Blood Count 13.7 K/mm3 (4.8-10.8)
[2022-05-16 16:48] LABS: MANUAL DIFFERENTIAL MANUAL DIFFERENTIAL (MANUAL DIFF)
[2022-05-16 16:56] LABS: Chloride 95 mmol/L (98-107); Sodium 130 mmol/L (136-145)
[2022-05-16 16:57] LABS: Potassium 4.7 mmoL/L (3.5-5.1)
[2022-05-16 16:59] LABS: Alanine Aminotransferase 49 U/L (12-78); Alkaline Phosphatase 93 U/L (38-126); Aspartate Amino Transferase 156 U/L (17-59); Bilirubin,Total 0.6 mg/dl (0.2-1.3); Blood Urea Nitrogen 6 mg/dl (9-20); Creatinine Clearance Estimated 147 mL/min (50-200); Estimated Glomerular Filt Rate 100 ml/min (>60); GFR (African American) 121 ML/MIN (>60)
[2022-05-16 17:00] LABS: Albumin Level 4.3 g/dl (3.5-5.0); Albumin/Globulin Ratio 1.3 (1.1-1.8); Anion Gap 15.7 mEq/L (5-15); Calcium 9.1 mg/dl (8.4-10.2); Carbon Dioxide 24 mmol/L (22.0-30.0); Globulin 3.4 g/dL (1.3-3.2); Glucose 239 mg/dl (74-100); Total Protein,Serum 7.7 g/dl (6.3-8.2)
[2022-05-16 17:13] LABS: Troponin I < 0.01 ng/ml (0.00-0.034)
[2022-05-16 17:27] LABS: Lymphocytes % 10 % (10-50); Monocytes % 5 % (2-9); Neutrophils % 85 % (42-76); Platelet Estimate Normal; Total Cells Counted 100
[2022-05-16 17:28] LABS: Giant Platelets 1+
[2022-05-16 17:29] LABS: Poikilocytosis 1+; Stomatocytes 1+
--- NOTE | 2022-05-16 17:29 | PC.NURSE ---
Viz maxi advised no ELVO, Dr Crane advised
--- NOTE | 2022-05-16 17:45 | CT_ITS ---
PROCEDURE INFORMATION: Exam: CT Abdomen And Pelvis Without Contrast Exam date and time: 05/16/2022 6:26 PM Age: 56 years old Clinical indication: Other: Free abdominal air; Patient HX: Free air, abd pain; Additional info: Free air abd pain TECHNIQUE: Imaging protocol: Computed tomography of the abdomen and pelvis without contrast. Radiation optimization: All CT scans at this facility use at least one of these dose optimization techniques: automated exposure control; mA and/or kV adjustment per patient size (includes targeted exams where dose is matched to clinical indication); or iterative reconstruction. REPORTING DATA: Count of CT and Cardiac NM exams in prior 12 months: This patient has received 4 known CTs and 0 known cardiac nuclear medicine studies in the 12 months prior to the current study. COMPARISON: CT ABDOMEN PELVIS WO CON 06/21/2020 9:24 AM FINDINGS: Liver: Unremarkable unremarkable. No hepatomegaly Gallbladder and bile ducts: Normal. No calcified stones. No ductal dilation. Pancreas: Normal. No ductal dilation. Spleen: Normal. No splenomegaly. Adrenal glands: Normal. No mass. Kidneys and ureters: Normal. No hydronephrosis. 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 This accounts for the lucency seen beneath the right hemidiaphragm on recent chest radiograph. Bowel loops are normal in caliber. No evidence of bowel obstruction. Appendix: No evidence of appendicitis. Intraperitoneal space: Unremarkable. No free air. No significant fluid collection. Vasculature: Unremarkable. No abdominal aortic aneurysm. Lymph nodes: Unremarkable. No enlarged lymph nodes. Urinary bladder: Unremarkable as visualized. Reproductive: Unremarkable as visualized. Bones/joints: Mild degenerative disc changes noted throughout the lower spine. No acute fracture. Soft tissues: There is a small fat containing left inguinal hernia. IMPRESSION: No evidence of free intraperitoneal air or other acute abnormality in the abdomen or pelvis. Lucency beneath the right hemidiaphragm seen on recent chest radiograph represents interposition of the hepatic flexure of the colon between the liver and diaphragm.
[2022-05-16 17:51] LABS: Microscopic, Urine URINE MICROSCOPIC (MICROSCOPIC)
--- NOTE | 2022-05-16 17:57 | HMH.EDAMS ---
Discharge Plan Disposition Patient Disposition: Home, Self-Care Condition: Good Prescriptions Prescriptions: No Action clozapine 50 mg tablet 50 mg PO BID divalproex 125 mg capsule, delayed rel sprinkle 500 mg PO BID omeprazole 40 mg capsule,delayed release(DR/EC) 40 mg PO DAILY propranolol 60 mg capsule,extended release 24 hr 60 mg PO DAILY simvastatin 20 mg tablet 20 mg PO HS omega 0-dyf-qcb-fish oil 300-1,000 mg capsule 2 cap PO BID benztropine 2 mg tablet 2 mg PO BID calcium carbonate 200 mg calcium (500 mg) tablet,chewable 1,000 mg PO TID Rx Instructions: unknown dose metformin 1,000 mg tablet 1,000 mg PO BID quetiapine 400 MG tablet 400 mg PO BID promethazine 25 MG tablet 25 mg PO Q4HP PRN (Reason: Nausea And Vomiting) ibuprofen 600 MG tablet 600 mg PO Q6HP PRN (Reason: pain) sennosides 8.6 MG tablet 8.6 mg PO BID trazodone 50 MG tablet 150 mg PO HS sucralfate 1 GM/10 ML suspension 10 ml PO QID sertraline 50 MG tablet 50 mg PO DAILY fenofibrate 160 MG tablet 160 mg PO DAILY niacin 500 MG tablet extended release 500 mg PO HS Referrals Follow up/Referrals: Marcus Stephen MD [Primary Care Provider] - See instructions Clinical Impressions Clinical Impression: URI (upper respiratory infection) Instructions Patient Instructions: DI for Viral Upper Respiratory Infection -- Adult Discharge ED Provider: Chloe Crane Altered Mental Status HPI General Chief Complaint: Altered Mental Status Stated Complaint: weakness Time Seen by Provider: 05/16/22 16:04 Mode of Arrival: EMS Source of Information: EMS Limitations: Altered Mental Status Description of Symptoms (Recalled from ER Triage Doc. by RN): Presents from [facility] d/t c/o diarrhea for the last few days. GCS 14. FS 275. Hx of schizophrenia, major depression, HTN, DM, GERD, & Gastric ulcer. History of Present Illness HPI narrative: The patient is a 56-year-old male with a history of schizophrenia, depression, hypertension, diabetes and GERD who presents from [facility] with diarrhea, reported fever and elevated glucose. History is limited from patient due to mental status. Reportedly he has been having diarrhea. Per EMS he was able to walk and he was neurologically intact. He is reportedly at his mental baseline. Patient has no complaints on exam. Related Data Home Medications Medication Instructions Recorded Confirmed benztropine 2 mg tablet 2 mg PO BID Tremors 06/17/20 04/24/21 calcium carbonate 200 mg calcium 1,000 mg PO TID Supplement 06/17/20 04/24/21 (500 mg) chewable tablet clozapine 50 mg tablet 50 mg PO BID MOOD 06/17/20 04/24/21 divalproex 125 mg capsule,delayed 500 mg PO BID SEIZURES 06/17/20 04/24/21 release sprinkle omega 7-ruc-kys-fish oil 300 2 cap PO BID Supplement 06/17/20 04/24/21 mg-1,000 mg capsule omeprazole 40 mg capsule,delayed 40 mg PO DAILY GERD 06/17/20 04/24/21 release propranolol 60 mg capsule,24 60 mg PO DAILY Hypertension 06/17/20 04/24/21 hr,extended release simvastatin 20 mg tablet 20 mg PO HS Cholesterol 06/17/20 04/24/21 metformin 1,000 mg tablet 1,000 mg PO BID Diabetes 07/25/20 04/24/21 fenofibrate 160 mg tablet 160 mg PO DAILY unknown 03/28/21 04/24/21 ibuprofen 600 mg tablet 600 mg PO Q6HP PRN pain 03/28/21 04/24/21 niacin 500 mg tablet,extended 500 mg PO HS unknown 03/28/21 04/24/21 release promethazine 25 mg tablet 25 mg PO Q4HP PRN Nausea And 03/28/21 04/24/21 Vomiting quetiapine 400 mg tablet 400 mg PO BID mood 03/28/21 04/24/21 sennosides 8.6 mg tablet 8.6 mg PO BID constipation 03/28/21 04/24/21 sertraline 50 mg tablet 50 mg PO DAILY depresion 03/28/21 04/24/21 sucralfate 100 mg/mL oral 10 ml PO QID unknown 03/28/21 04/24/21 suspension trazodone 50 mg tablet 150 mg PO HS sleep 03/28/21 04/24/21 Allergies Allergy/AdvReac Type Severity Reac
[2022-05-16 18:04] LABS: Appearance,Urine CLEAR (Clear); Bilirubin,Urine Negative (Negative); Blood, Urine Negative (Negative); Color,Urine YELLOW (Yellow); Glucose,Urine (UA) Negative (Negative); Ketones,Urine TRACE (Negative); Leukocyte Esterase,Urine Negative (Negative); Nitrate,Urine Negative (Negative); Protein,Urine Negative (Negative); Urobilinogen,Urine 0.2 EU/dl (0.2)
[2022-05-16 18:49] LABS: WBC,Urine Occasional #/hpf (0-3)
[2022-05-16 20:26] LABS: Reflex Lactic Add Lactic Reflex
== END 2022-05-16 21:28 | disposition home or self-care (01) ==
PROVIDERS: Emergency Provider Emergency Medicine; PCP Emergency Medicine
DX: J06.9 Acute upper respiratory infection, unspecified (principal); F20.9 Schizophrenia, unspecified; F33.9 Major depressive disorder, recurrent, unspecified; I10 Essential (primary) hypertension; E11.9 Type 2 diabetes mellitus without complications; E78.5 Hyperlipidemia, unspecified; Z87.19 Personal history of other diseases of the digestive system; Z20.822 Contact with and (suspected) exposure to COVID-19
CPT/HCPCS: 70450; 70496; 70498; 71045; 74176; 80053; 81001; 82803; 83605; 84484; 85007; 85025; 86850; 87040; 87077; 87086; C9803; Q9967; U0003; U0005

== ENCOUNTER 2022-05-17 01:50 | Inpatient (IN) | payer MEDICAID, SELFPAY ==
--- NOTE | 2022-05-16 16:05 | ECG_ITS ---
APPROVED REPORT Exam: Resting ECG HR:100 bpm ECG Measurements Heart Rate 100 AXES DC 155 P 42 QRSd 89 QRS 14 QT 328 T 11 QTc 385 Conclusion SINUS TACHYCARDIA POSSIBLE LEFT ATRIAL ENLARGEMENT [-0.1mV P-WAVE IN V1/V2] ABNORMAL RHYTHM ECG UNCONFIRMED REPORT Electronically signed by : Paco Quick MD 05/17/2022 17:18:40
[2022-05-17] VITALS (11 sets, daily range): BP systolic 113–147; BP diastolic 58–80; PULSE 69–109; RESP 16–22; TEMP 36.4–39.2; O2SAT 92–99; BMI 27.1; BMI 25.9
--- NOTE | 2022-05-17 01:53 | CT_ITS ---
PROCEDURE INFORMATION: Exam: CT Cervical Spine Without Contrast Exam date and time: 05/17/2022 3:12 AM Age: 56 years old Clinical indication: Injury or trauma; Fall TECHNIQUE: Imaging protocol: Computed tomography of the cervical spine without contrast. Radiation optimization: All CT scans at this facility use at least one of these dose optimization techniques: automated exposure control; mA and/or kV adjustment per patient size (includes targeted exams where dose is matched to clinical indication); or iterative reconstruction. REPORTING DATA: Count of CT and Cardiac NM exams in prior 12 months: This patient has received 7 known CTs and 0 known cardiac nuclear medicine studies in the 12 months prior to the current study. COMPARISON: CT CERVICAL SPINE WO CON 02/12/2019 10:12 AM FINDINGS: Bones/joints: No evidence of acute cervical spine fracture or traumatic malalignment. There is mild degenerative disc disease at C5-C6 with right neural foraminal stenosis. Spinal canal and neural foramina are otherwise patent. Lungs: Clear apical lung parenchyma. Severe sinus disease is partly visualized. Thyroid: Homogeneous thyroid. Lymph nodes: Reactive size lymph nodes are noted throughout the neck. Soft tissues: Unremarkable. IMPRESSION: No evidence of acute cervical spine fracture or traumatic malalignment. Neural foraminal stenosis is noted on the right at C5-C6.
--- NOTE | 2022-05-17 01:53 | CT_ITS ---
PROCEDURE INFORMATION: Exam: CT Head Without Contrast Exam date and time: 05/17/2022 3:10 AM Age: 56 years old Clinical indication: Injury or trauma; Fall TECHNIQUE: Imaging protocol: Computed tomography of the head without contrast. Radiation optimization: All CT scans at this facility use at least one of these dose optimization techniques: automated exposure control; mA and/or kV adjustment per patient size (includes targeted exams where dose is matched to clinical indication); or iterative reconstruction. REPORTING DATA: Count of CT and Cardiac NM exams in prior 12 months: This patient has received 7 known CTs and 0 known cardiac nuclear medicine studies in the 12 months prior to the current study. COMPARISON: CT HEAD/BRAIN WO CON 05/16/2022 5:16 PM FINDINGS: Brain: Normal. No hemorrhage. Unremarkable white matter. No mass effect. Cerebral ventricles: No ventriculomegaly. Paranasal sinuses: Bilateral maxillary sinus mucosal thickening, left greater than right. Extensive ethmoid sinus mucosal thickening throughout. Near complete opacification of the left frontal sinus. Severe mucosal thickening in the right frontal sinus. Mastoid air cells: Visualized mastoid air cells are well aerated. Auditory system: No middle ear fluid. Retained cerumen noted in the right external auditory canal. Bones/joints: Mucosal thickening noted in the sphenoids. Soft tissues: Unremarkable. IMPRESSION: 1. No evidence of acute intracranial hemorrhage, mass effect, or edema. 2. Extensive sinus disease.
--- NOTE | 2022-05-17 01:53 | XR_ITS ---
PROCEDURE INFORMATION: Exam: XR Pelvis Exam date and time: 05/17/2022 3:32 AM Age: 56 years old Clinical indication: Injury or trauma; Fall TECHNIQUE: Imaging protocol: Radiologic exam of the pelvis. Views: 1 or 2 view. COMPARISON: CT ABDOMEN PELVIS WO CON 05/16/2022 6:26 PM FINDINGS: Bones/joints: Unremarkable. No acute fracture. Soft tissues: Unremarkable. IMPRESSION: No evidence of acute traumatic injury.
--- NOTE | 2022-05-17 01:53 | XR_ITS ---
PROCEDURE INFORMATION: Exam: XR Chest Exam date and time: 05/17/2022 3:32 AM Age: 56 years old Clinical indication: Injury or trauma; Fall TECHNIQUE: Imaging protocol: Radiologic exam of the chest. Views: 1 view. COMPARISON: CT CHEST WO CON 05/17/2022 2:15 AM FINDINGS: Lungs: Unremarkable. No consolidation. Pleural spaces: Unremarkable. No pleural effusion. No pneumothorax. Heart/Mediastinum: Unremarkable. No cardiomegaly. Bones/joints: Unremarkable. IMPRESSION: No acute findings.
--- NOTE | 2022-05-17 01:59 | HMH.EDFALL ---
Discharge Plan Disposition Patient Disposition: Admitted As Inpatient Chief Complaint: Fall Prescriptions Prescriptions: No Action clozapine 50 mg tablet 50 mg PO BID divalproex 125 mg capsule, delayed rel sprinkle 500 mg PO BID omeprazole 40 mg capsule,delayed release(DR/EC) 40 mg PO DAILY propranolol 60 mg capsule,extended release 24 hr 60 mg PO DAILY simvastatin 20 mg tablet 20 mg PO HS omega 4-gvm-lfg-fish oil 300-1,000 mg capsule 2 cap PO BID benztropine 2 mg tablet 2 mg PO BID calcium carbonate 200 mg calcium (500 mg) tablet,chewable 1,000 mg PO TID Rx Instructions: unknown dose metformin 1,000 mg tablet 1,000 mg PO BID quetiapine 400 MG tablet 400 mg PO BID promethazine 25 MG tablet 25 mg PO Q4HP PRN (Reason: Nausea And Vomiting) ibuprofen 600 MG tablet 600 mg PO Q6HP PRN (Reason: pain) sennosides 8.6 MG tablet 8.6 mg PO BID trazodone 50 MG tablet 150 mg PO HS sucralfate 1 GM/10 ML suspension 10 ml PO QID sertraline 50 MG tablet 50 mg PO DAILY fenofibrate 160 MG tablet 160 mg PO DAILY niacin 500 MG tablet extended release 500 mg PO HS Referrals Follow up/Referrals: Hailee (ED),Marcus Jalloh MD [Emergency Provider] - See instructions Clinical Impressions Clinical Impression: Febrile illness, acute, Altered mental status, Acute UTI (urinary tract infection), Severe sepsis with acute organ dysfunction, Septic shock, DKA (diabetic ketoacidosis) Discharge ED Provider: Hailee (ED)Marcus Fall HPI General Chief Complaint: Fall Stated Complaint: fall Time Seen by Provider: 05/17/22 03:00 Mode of Arrival: EMS Source of Information: Patient, EMS and Medical Record Limitations: No Limitations Description of Symptoms (Recalled from ER Triage Doc. by RN): EMS reports called out for an unwitnessed fall. pt was found on the floor by the bed. pt was seen in er earlier and diagnosed with upper resp infection. History of Present Illness HPI Narrative: pt with fall at nursing home and was in the ed earlier - see prev note - pt with no specific details except has fever and cough and weakness - complaint: fall Onset (ago): hour(s) Fall from: standing Fall witnessed: no Place fall occurred: other (nursing home ) Loss of consciousness: none Prolonged down time: no Severity: moderate Related Data Home Medications Medication Instructions Recorded Confirmed benztropine 2 mg tablet 2 mg PO BID Tremors 06/17/20 05/17/22 calcium carbonate 200 mg calcium 1,000 mg PO TID Supplement 06/17/20 05/17/22 (500 mg) chewable tablet clozapine 50 mg tablet 50 mg PO BID MOOD 06/17/20 05/17/22 divalproex 125 mg capsule,delayed 500 mg PO BID SEIZURES 06/17/20 05/17/22 release sprinkle omega 3-nad-xum-fish oil 300 2 cap PO BID Supplement 06/17/20 05/17/22 mg-1,000 mg capsule omeprazole 40 mg capsule,delayed 40 mg PO DAILY GERD 06/17/20 05/17/22 release propranolol 60 mg capsule,24 60 mg PO DAILY Hypertension 06/17/20 05/17/22 hr,extended release simvastatin 20 mg tablet 20 mg PO HS Cholesterol 06/17/20 05/17/22 metformin 1,000 mg tablet 1,000 mg PO BID Diabetes 07/25/20 05/17/22 fenofibrate 160 mg tablet 160 mg PO DAILY unknown 03/28/21 05/17/22 ibuprofen 600 mg tablet 600 mg PO Q6HP PRN pain 03/28/21 05/17/22 niacin 500 mg tablet,extended 500 mg PO HS unknown 03/28/21 05/17/22 release promethazine 25 mg tablet 25 mg PO Q4HP PRN Nausea And 03/28/21 05/17/22 Vomiting quetiapine 400 mg tablet 400 mg PO BID mood 03/28/21 05/17/22 sennosides 8.6 mg tablet 8.6 mg PO BID constipation 03/28/21 05/17/22 sertraline 50 mg tablet 50 mg PO DAILY depresion 03/28/21 05/17/22 sucralfate 100 mg/mL oral 10 ml PO QID unknown 03/28/21 05/17/22 suspension trazodone 50 mg tablet 150 mg PO HS sleep 03/28/21 05/17/22 Allergies Allergy/AdvReac Type Severity Reaction Status Date / Time risperidone Aller
--- NOTE | 2022-05-17 03:00 | PC.NURSE ---
When patient arrived to ED it was noted that he had bedbugs on the soles of his feet and on his clothing. Patient had his clothing removed and was placed in a clean gown after patient was given a bedbath. Patient belongings were bagged as per [facility] protocol.
--- NOTE | 2022-05-17 03:03 | CT_ITS ---
PROCEDURE INFORMATION: Exam: CT Chest Without Contrast; Diagnostic Exam date and time: 05/17/2022 3:15 AM Age: 56 years old Clinical indication: Fever TECHNIQUE: Imaging protocol: Diagnostic computed tomography of the chest without contrast. Radiation optimization: All CT scans at this facility use at least one of these dose optimization techniques: automated exposure control; mA and/or kV adjustment per patient size (includes targeted exams where dose is matched to clinical indication); or iterative reconstruction. REPORTING DATA: Count of CT and Cardiac NM exams in prior 12 months: This patient has received 7 known CTs and 0 known cardiac nuclear medicine studies in the 12 months prior to the current study. COMPARISON: CT ANGIO CHEST 06/20/2020 6:37 PM FINDINGS: Lungs: Bibasilar atelectasis is present. Pleural spaces: No pneumothorax is identified. Heart: Unremarkable. No cardiomegaly. No pericardial effusion. Coronary arteries: No coronary artery calcium is seen. Lymph nodes: A few scattered densely calcified mediastinal lymph nodes are present. Vasculature: Unremarkable. No aortic aneurysm. Bones/joints: Unremarkable. No acute fracture. Soft tissues: Unremarkable. IMPRESSION: No focal infiltrates noted. Minimal bibasilar atelectasis.
[2022-05-17 03:12] LABS: Basophils % 0.1 % (0.1-2.0); Eosinophils % 0.2 % (0.1-12.0); Hemoglobin 10.6 g/dL (14.1-18.0); Lymphocytes # 0.9 K/mm3 (0.7-4.5); Lymphocytes % 5.1 % (10-50); Mean Corpuscular HGB Conc 32.2 g/dL (31.8-35.4); Mean Corpuscular Hemoglobin 29.9 pg (27.0-31.2); Mean Corpuscular Volume 92.9 fl (80-94); Mean Platelet Volume 8.4 fl (7.4-10.4); Monocytes # 1.1 K/mm3 (0.1-1.0); Monocytes % 6.5 % (1.7-9.3); Neutrophils # 15.5 K/mm3 (1.8-7.8); Neutrophils % 88.1 % (37.0-80.0); Platelet Count 416 K/mm3 (142-424); Red Blood Count 3.56 M/mm3 (4.60-6.20); Red Cell Distribution Width 18.4 % (11.5-17.5); White Blood Count 17.6 K/mm3 (4.8-10.8)
[2022-05-17 03:17] LABS: Chloride 95 mmol/L (98-107); Potassium 4.2 mmoL/L (3.5-5.1); Sodium 131 mmol/L (136-145)
[2022-05-17 03:19] LABS: Acetone, Serum (Rapid) Small (None Detect)
[2022-05-17 03:20] LABS: Alanine Aminotransferase 47 U/L (12-78); Albumin Level 3.9 g/dl (3.5-5.0); Albumin/Globulin Ratio 1.3 (1.1-1.8); Alkaline Phosphatase 96 U/L (38-126); Anion Gap 19.2 mEq/L (5-15); Aspartate Amino Transferase 118 U/L (17-59); Bilirubin,Total 0.4 mg/dl (0.2-1.3); Blood Urea Nitrogen 4 mg/dl (9-20); Carbon Dioxide 21 mmol/L (22.0-30.0); Creatinine Clearance Estimated 119 mL/min (50-200); Estimated Glomerular Filt Rate 88 ml/min (>60); GFR (African American) 106 ML/MIN (>60); Glucose 240 mg/dl (74-100); Total Protein,Serum 6.9 g/dl (6.3-8.2)
--- NOTE | 2022-05-17 03:23 | PC.NURSE ---
notified pablo of critcal lactic 5.2
[2022-05-17 03:24] LABS: Lactic Acid 5.2 mmol/L (0.7-2.1); MANUAL DIFFERENTIAL MANUAL DIFFERENTIAL (MANUAL DIFF)
--- NOTE | 2022-05-17 03:28 | PC.NURSE ---
pt back from scan
[2022-05-17 03:42] LABS: Microscopic, Urine URINE MICROSCOPIC (MICROSCOPIC)
[2022-05-17 03:45] LABS: Appearance,Urine CLEAR (Clear); Bilirubin,Urine Negative (Negative); Blood, Urine 3+ (Negative); Color,Urine YELLOW (Yellow); Glucose,Urine (UA) Negative (Negative); Ketones,Urine 2+ (Negative); Leukocyte Esterase,Urine Negative (Negative); Nitrate,Urine Negative (Negative); Protein,Urine 1+ (Negative); Urobilinogen,Urine 0.2 EU/dl (0.2)
[2022-05-17 04:02] LABS: Bacteria,Urine Trace /lpf
[2022-05-17 04:16] LABS: Coronavirus 19, PCR Not Detected (NotDetected); Influenza A, PCR Not Detected (NotDetected); Influenza B, PCR Not Detected (NotDetected)
--- NOTE | 2022-05-17 04:33 | PC.NURSE ---
spoke with Ulises TREVIÑO regarding patient admission
[2022-05-17 04:35] LABS: Lymphocytes % 9 % (10-50); Monocytes % 3 % (2-9); Neutrophils % 80 % (42-76); Platelet Estimate Normal; Total Cells Counted 100
[2022-05-17 04:37] LABS: Hypochromasia 1+
--- NOTE | 2022-05-17 04:47 | PC.NURSE ---
Contacted Ulises Mercedes OPHTHALMIC TECHNICIAN APPRENTICE to ask if she would like to go ahead and start IV antibiotics per our sepsis protocol. Ulises requested 2mg of cefepime to be ordered q12 hr and will start another antibiotic when she places orders.
--- NOTE | 2022-05-17 05:01 | EXP.HP ---
History of Present Illness *Admission Date: 05/17/22 *Reason for visit:: Fevers, Fall *History of present illness: Mr. Snyder is a 56-year-old male with a past medical history of Mood Disorder, Diabetes, and Tremors. He presents to [facility] due to an unwitnessed fall and fevers, he was seen earlier in the day in the ER due to fevers and work-up was unremarkable, he was diagnosed with an upper respiratory infection. He denies any pain, but is complaining of chills, nasal congestion and generalized body aches. In the ER the patient underwent an extensive work-up on both dates that included: CT of the head, CT chest, CT abdomen and pelvis, CT cervical spine that showed no acute findings. CBC showed a WBC of 17.6, Lactic Acid was 5.2. On 05/16 temperature was noted to be 101.5, on return on 05/17 temperature was 102.6. Covid and Flu testing were negative on 05/16. The patient will be admitted with initial impression: SIRS, blood cultures, urine culture, MRSA pcr have been ordered. The patient has been started empirically on broad spectrum while we await cultures. [facility] Disclaimer: The information contained in this section may have been updated after the patient was seen, as this information can be updated by other users. Medical History (Updated 05/17/22 @ 05:14 by Ulises Mehta DNP) Cataract Cataract Diabetes Mood disorder Tremors of nervous system Social History (Updated 05/17/22 @ 06:16 by Peri Eastman RN) Smoking Status: Unknown if ever smoked alcohol intake: never substance use type: denies use current occupational status: disabled Travel in the last 8 weeks: None household members: other housing: half-way caffeine: Yes Review of Systems Review of Systems Review of systems:: pertinent systems reviewed and negative unless documented below Constitutional Constitutional: Reports body ache(s) and Reports chills Eyes Eyes: Reports system reviewed and no additional complaints, except as documented ENT Ears, Nose, Mouth, and Throat: Reports nasal discharge, Reports post nasal drip and Reports sinus pain *Cardiovascular Cardiovascular: Reports system reviewed and no additional complaints, except as documented *Respiratory Respiratory: Reports system reviewed and no additional complaints, except as documented *Gastrointestinal Gastrointestinal: Reports system reviewed and no additional complaints, except as documented *Genitourinary Genitourinary: Reports system reviewed and no additional complaints, except as documented *Musculoskeletal Musculoskeletal: Reports muscle cramps Integumentary/Breasts Skin/Breast: Reports system reviewed and no additional complaints, except as documented *Neurologic Neurologic: Reports system reviewed and no additional complaints, except as documented Psychiatric Psychiatric: Reports system reviewed and no additional complaints, except as documented Endocrine Endocrine: Reports system reviewed and no additional complaints, except as documented Hematologic/Lymphatic Hematologic/Lymphatic: Reports system reviewed and no additional complaints, except as documented Allergic/Immunologic Allergic/Immunologic: Reports system reviewed and no additional complaints, except as documented Meds Home Medications and Allergies Home Medications Medication Instructions Recorded Confirmed Type benztropine 2 mg tablet 2 mg PO BID Tremors 06/17/20 05/17/22 History calcium carbonate 200 mg calcium 1,000 mg PO TID Supplement 06/17/20 05/17/22 History (500 mg) chewable tablet clozapine 50 mg tablet 50 mg PO BID MOOD 06/17/20 05/17/22 History divalproex 125 mg capsule,delayed 500 mg PO BID SEIZURES 06/17/20 05/17/22 History release sprinkle omega 9-hth-yqp-fish oil 300 2 cap PO BID Supplement 06/17/20 05/17/22 History mg-1,000 mg capsule omeprazole 40 mg capsule,delayed 40 mg PO DAILY GERD 06/17/20 05/17/22 History release propranolol 60 mg capsule,24
[2022-05-17 05:02] LABS: VBG Base Excess -4.4 mmol/L (-2.4-2.3); VBG HCO3 20.1 mmol/L (23-30); VBG Oxygen Saturation 84.5 % (50-70); VBG PCO2 32.1 mmol/L (35-51); VBG PH 7.42 mmol/L (7.31-7.41); VBG PO2 50.9 mmol/L (28-40); VBG Total CO2 21.1 mmol/L (23-27)
[2022-05-17 05:04] LABS: Adenovirus,PCR Not Detected (NotDetected); Bordetella Pertussis Not Detected (NotDetected); Chlamydophila Pneumoniae, PCR Not Detected (NotDetected); Coronavirus 19, PCR Not Detected (NotDetected); Coronavirus 229E Not Detected (NotDetected); Coronavirus NL63 Not Detected (NotDetected); Coronavirus OC43 Not Detected (NotDetected); Coronovirus HKU1,PCR Not Detected (NotDetected); Human Metapneumovirus Not Detected (NotDetected); Influenza A, PCR Not Detected (NotDetected); Influenza AH1, 2009 Not Detected (NotDetected); Influenza AH1, PCR Not Detected (NotDetected); Influenza AH3,PCR Not Detected (NotDetected); Influenza B, PCR Not Detected (NotDetected); Mycoplasma Pneumoniae, PCR Not Detected (NotDetected); Parainfluenza 1, PCR Not Detected (NotDetected); Parainfluenza 2, PCR Not Detected (NotDetected); Parainfluenza 3, PCR Not Detected (NotDetected); Parainfluenza 4, PCR Not Detected (NotDetected); Respiratory Syncytial Virus Not Detected (NotDetected); Rhinovirus/Enterovirus Not Detected (NotDetected)
[2022-05-17 06:33] LABS: POC Glucose,Bedside 222 (70-110)
--- NOTE | 2022-05-17 08:33 | EXP.PHA.CONS ---
Pharmacy Consult Date: 05/17/22 Time: 08:33 Referring provider: DR. ADAMS Reason for Consult:: VANCOMYCIN DOSING Allergies Allergy/AdvReac Type Severity Reaction Status Date / Time risperidone Allergy Intermediate Rash Verified 04/24/21 09:56 Home Medications Medication Instructions Recorded Confirmed Type benztropine 2 mg tablet 2 mg PO BID Tremors 06/17/20 05/17/22 History calcium carbonate 200 mg calcium 1,000 mg PO TID Supplement 06/17/20 05/17/22 History (500 mg) chewable tablet clozapine 50 mg tablet 50 mg PO BID MOOD 06/17/20 05/17/22 History divalproex 125 mg capsule,delayed 500 mg PO BID SEIZURES 06/17/20 05/17/22 History release sprinkle omega 2-awv-qid-fish oil 300 2 cap PO BID Supplement 06/17/20 05/17/22 History mg-1,000 mg capsule omeprazole 40 mg capsule,delayed 40 mg PO DAILY GERD 06/17/20 05/17/22 History release propranolol 60 mg capsule,24 60 mg PO DAILY Hypertension 06/17/20 05/17/22 History hr,extended release simvastatin 20 mg tablet 20 mg PO HS Cholesterol 06/17/20 05/17/22 History metformin 1,000 mg tablet 1,000 mg PO BID Diabetes 07/25/20 05/17/22 History fenofibrate 160 mg tablet 160 mg PO DAILY unknown 03/28/21 05/17/22 History ibuprofen 600 mg tablet 600 mg PO Q6HP PRN pain 03/28/21 05/17/22 History niacin 500 mg tablet,extended 500 mg PO HS unknown 03/28/21 05/17/22 History release promethazine 25 mg tablet 25 mg PO Q4HP PRN Nausea And 03/28/21 05/17/22 History Vomiting quetiapine 400 mg tablet 400 mg PO BID mood 03/28/21 05/17/22 History sennosides 8.6 mg tablet 8.6 mg PO BID constipation 03/28/21 05/17/22 History sertraline 50 mg tablet 50 mg PO DAILY depresion 03/28/21 05/17/22 History sucralfate 100 mg/mL oral 10 ml PO QID unknown 03/28/21 05/17/22 History suspension trazodone 50 mg tablet 150 mg PO HS sleep 03/28/21 05/17/22 History New Prescriptions to Start Prescriptions: Height: 1.83 m Weight: 86.772 kg Laboratory Results:: Laboratory Results - last 24 hr 05/17/22 03:00: WBC 17.6 H D, RBC 3.56 L, Hgb 10.6 L, Hct 33.0 L, MCV 92.9, MCH 29.9, MCHC 32.2, RDW 18.4 H, Plt Count 416, MPV 8.4, Neut % (Auto) 88.1 H, Lymph % (Auto) 5.1 L, [place] % (Auto) 6.5, Eos % (Auto) 0.2, Baso % (Auto) 0.1, Neut # (Auto) 15.5 H, Lymph # (Auto) 0.9, [place] # (Auto) 1.1 H, Eos # (Auto) 0.0, Baso # (Auto) 0.0, Total Counted 100, Neutrophils % (Manual) 80 H, Band Neutrophils % 1.0, Lymphocytes % (Manual) 9 L, Atypical Lymphs % 7.0, Monocytes % (Manual) 3, Platelet Estimate Normal, Hypochromasia 1+ 05/17/22 03:00: Sodium 131 L, Potassium 4.2, Chloride 95 L, Carbon Dioxide 21 L, Anion Gap 19.2 H, BUN 4 L D, Creatinine 0.90, Estimated Creat Clear 119, Estimated GFR 88, Est GFR ( Amer) 106, Glucose 240 H, Calcium 9.0, Total Bilirubin 0.4, AST 118 H, ALT 47, Alkaline Phosphatase 96, Total Protein 6.9, Albumin 3.9, Globulin 3.0, Albumin/Globulin Ratio 1.3 05/17/22 03:00: Lactate 5.2 H 05/17/22 03:00: Acetone Level Small 05/17/22 03:00: SARS-CoV-2 (PCR) Not detected, Influenza A Untype (PCR) Not detected, Influenza Type B (PCR) Not detected 05/17/22 03:00: Chlamy pneumoniae PCR Not detected, Adenovirus (PCR) Not detected, B. pertussis DNA (PCR) Not detected, Coronavirus OC43 (PCR) Not detected, Coronavirus HKU1 (PCR) Not detected, Coronavirus 229E (PCR) Not detected, SARS-CoV-2 (PCR) Not detected, Coronavirus NL63 (PCR) Not detected, Human Metapneumovir PCR Not detected, Influenza A (H1) PCR Not detected, Influ A (H1N1/09) PCR Not detected, Influenza A (H3) PCR Not detected, Influenza Type A (PCR) Not detected, Influenza Type B (PCR) Not detected, M. pneumoniae (PCR) Not detected, Parainfluenza 1 (PCR) Not detected, Parainfluenza 2 (PCR) Not detected, Parainfluenza 3 (PCR) Not detected, Parainfluenza 4 (PCR) Not detected, RSV (PCR) Not detected, Entero/Rhino (PCR) Not detected 05/17/22 03:30: Urine Color Yellow, Urine Appearance Clear, Urine pH 7.0, Ur Specific [place] 1.010, Urine Protein 1+, Urine
[2022-05-17 08:41] LABS: Hemoglobin A1C 7.2 % (4.0-6.0)
--- NOTE | 2022-05-17 09:30 | P.CONPHA_ITS ---
Pharmacy Intervention Comments: MEDICATION RECONCILIATION COMPLETED ON PATIENT USING MAR FROM [facility]. -TERESA PICHARDO, [place]
--- NOTE | 2022-05-17 09:30 | HMH.PHAINT1 ---
Pharmacy Intervention Comments: MEDICATION RECONCILIATION COMPLETED ON PATIENT USING MAR FROM [facility]. -TERESA PICHARDO, [place]
[2022-05-17 11:22] LABS: POC Glucose,Bedside 201 (70-110)
--- NOTE | 2022-05-17 14:26 | EXP.SEPSISRE ---
[facility] Tissue Perfusion Eval Sepsis Re-Evaluation Performed: Yes Date Performed: 05/17/22 Time Performed: 07:55
[2022-05-17 16:40] LABS: POC Glucose,Bedside 169 (70-110)
--- NOTE | 2022-05-17 18:05 | PC.NURSE ---
Patient mainly slept during shift but easily aroused. VS stable and pt remained on room air. No complaints of pain noted. Ibuprofen given early in shift as patient had been diaphoretic, shivering but no fever noted. After ibuprofen pt became relaxed, shivering ceased. IV antibiotics given for infection. No other changes noted.
[2022-05-17 21:06] LABS: POC Glucose,Bedside 153 (70-110)
[2022-05-18] VITALS: BP 124/72; PULSE 68; RESP 16; TEMP 36.5; O2SAT 97
[2022-05-18 04:00] VITALS: BP 115/66; PULSE 72; RESP 16; TEMP 36.6; O2SAT 99; BMI 25.9
[2022-05-18 06:26] LABS: Alanine Aminotransferase 34 U/L (12-78); Alkaline Phosphatase 80 U/L (38-126); Anion Gap 7.2 mEq/L (5-15); Aspartate Amino Transferase 118 U/L (17-59); Bilirubin,Total 0.3 mg/dl (0.2-1.3); Blood Urea Nitrogen 8 mg/dl (9-20); Calcium 7.9 mg/dl (8.4-10.2); Carbon Dioxide 26 mmol/L (22.0-30.0); Chloride 103 mmol/L (98-107); Creatinine Clearance Estimated 128 mL/min (50-200); Estimated Glomerular Filt Rate 100 ml/min (>60); GFR (African American) 121 ML/MIN (>60); Globulin 2.9 g/dL (1.3-3.2); Glucose 121 mg/dl (74-100); Magnesium 1.8 mg/dl (1.6-2.3); Potassium 3.2 mmoL/L (3.5-5.1); Sodium 133 mmol/L (136-145); Total Protein,Serum 5.9 g/dl (6.3-8.2)
[2022-05-18 06:32] LABS: C-Reactive Protein 271.8 mg/L (0-4)
[2022-05-18 06:40] LABS: Basophils % 0.2 % (0.1-2.0); Eosinophils # 0.2 K/mm3 (0.0-0.4); Eosinophils % 1.5 % (0.1-12.0); Hematocrit 28.8 % (42.0-52.0); Hemoglobin 9.3 g/dL (14.1-18.0); Lymphocytes # 1.5 K/mm3 (0.7-4.5); Lymphocytes % 12.5 % (10-50); Mean Corpuscular HGB Conc 32.4 g/dL (31.8-35.4); Mean Corpuscular Hemoglobin 30.4 pg (27.0-31.2); Mean Corpuscular Volume 93.9 fl (80-94); Mean Platelet Volume 8.1 fl (7.4-10.4); Monocytes # 0.6 K/mm3 (0.1-1.0); Monocytes % 5.2 % (1.7-9.3); Neutrophils # 9.5 K/mm3 (1.8-7.8); Neutrophils % 80.7 % (37.0-80.0); Platelet Count 313 K/mm3 (142-424); Red Blood Count 3.07 M/mm3 (4.60-6.20); Red Cell Distribution Width 18.5 % (11.5-17.5); White Blood Count 11.7 K/mm3 (4.8-10.8)
[2022-05-18 07:08] LABS: POC Glucose,Bedside 141 (70-110)
--- NOTE | 2022-05-18 07:12 | PC.NURSE ---
pt did not void this shift, bladder scan read >440. notified hospitalist and straight cath, 700 ml out
--- NOTE | 2022-05-18 07:49 | FL_ITS ---
FINAL REPORT CLINICAL HISTORY: 0.15, r/o meningitis FINDINGS: LUMBAR PUNCTURE AND FLUOROSCOPY HISTORY: Headaches ATTENDING PHYSICIAN: Dr. Ward PHYSICIAN BRICKLAYER'S ASSISTANT: Fabián Terry PA-C PROCEDURE: After informed consent was obtained and timeout procedure performed, the patient was placed in the prone position in the fluoroscopic suite. The L4-L5 level of the lumbar spine was localized under fluoroscopic guidance and marked on the skin appropriately. The patient was then prepped and draped in the usual sterile fashion and the skin was anesthetized with 1% Lidocaine. A lumbar puncture was then performed under direct fluoroscopic guidance at the L4-L5 level using a 20-gauge 3 1/2'' needle. The patient was subsequently rolled into the left lateral decubitus position and opening pressure was measured at 16 cm of water. Approximately 12 ml of clear cerebrospinal fluid was removed and sent to the laboratory for studies. The patient tolerated the procedure well and there were no immediate complications. IMPRESSION: Technically successful lumbar puncture as above. Films reviewed , interpreted and dictated by Dr. Ward. Transcribed by Fabián Terry PA-C. Reviewed, Interpreted and Dictated by Michael Ward III, MD Transcribed by CHRISTOPHER Russ Authenticated and [facility]
[2022-05-18 08:00] VITALS: BP 134/84; PULSE 78; RESP 18; TEMP 36.7; O2SAT 96
[2022-05-18 10:29] LABS: Glucose,CSF 84 mg/dl (40-70)
[2022-05-18 11:41] LABS: POC Glucose,Bedside 200 (70-110)
[2022-05-18 11:53] LABS: Appearance,CSF Clear (Clear); Red Blood Cell,CSF 0 cells/uL (0); Volume,CSF 3 mL; White Blood Cell,CSF 0 cells/uL (0-5)
[2022-05-18 11:54] LABS: Appearance,CSF Clear (Clear); Red Blood Cell,CSF 0 cells/uL (0); Volume,CSF 3 mL; White Blood Cell,CSF 0 cells/uL (0-5)
[2022-05-18 12:00] VITALS: BP 127/71; PULSE 74; PULSE 75; RESP 18; TEMP 36.6; O2SAT 92
[2022-05-18 16:00] VITALS: BP 138/80; PULSE 79; PULSE 84; RESP 20; TEMP 36.6; O2SAT 97
--- NOTE | 2022-05-18 16:35 | PC.NURSE ---
Pt drowsy but oriented. Tolerating oral intake. VSS. Voiding per urinal and depends. No complaints throughout shift. Antibiotics infused per orders.
--- NOTE | 2022-05-18 17:00 | EXP.ACUTE.PN ---
Subjective *Date: 05/18/22 *Time: 17:00 Interval history: Given patient's confusion still overnight, IR consulted this morning for LP to rule out meningitis. Patient more interactive on exam this morning. Answering questions appropriately. Flat affect. No fevers overnight. No chest pain or shortness of breath. Had an episode of urinary retention, in and out cath produced 700 cc of urine. Tolerating p.o. intake. Ambulating with minimal assistance. Medical Exam Vital signs and Labs for Last 24 Hours: Vital Signs Temp Pulse Pulse Resp BP Pulse Ox 05/18/22 16:00 84 05/18/22 12:00 75 05/18/22 12:00 97.8 F 74 18 127/71 92 L 05/18/22 08:00 98.1 F 78 18 134/84 96 05/18/22 04:00 97.9 F 72 16 115/66 99 05/18/22 00:00 97.7 F 68 16 124/72 97 05/17/22 20:00 97.7 F 69 17 127/72 97 Intake and Output 05/18/22 05/18/22 05/18/22 07:59 15:59 23:59 Intake Total 100 / 700 600 / 700 Output Total 700 / 1450 750 / 1450 Balance -600 / -750 -150 / -750 Intake: Intake, Oral Amount 600 / 600 Intake, Total IV Amount 100 / 100 Cefepime HCl 2 gm In 0.9 % 100 / 100 Sodium Chloride 100 ml @ 200 mls/hr IV Q12H [facility] Rx#:[id number] Output: Output, Urine Amount 700 / 1450 750 / 1450 Other: Number of Unmeasured Voids 1 Weight 86.954 kg Patient Weight 05/18/22 23:59 Weight 86.954 kg Laboratory Results - last 24 hr 05/17/22 20:26: POC Glucose 153 H 05/18/22 05:35: WBC 11.7 H D, RBC 3.07 L, Hgb 9.3 L, Hct 28.8 L, MCV 93.9, MCH 30.4, MCHC 32.4, RDW 18.5 H, Plt Count 313, MPV 8.1, Neut % (Auto) 80.7 H, Lymph % (Auto) 12.5, [place] % (Auto) 5.2, Eos % (Auto) 1.5, Baso % (Auto) 0.2, Neut # (Auto) 9.5 H, Lymph # (Auto) 1.5, [place] # (Auto) 0.6, Eos # (Auto) 0.2, Baso # (Auto) 0.0 05/18/22 05:35: Sodium 133 L, Potassium 3.2 L D, Chloride 103, Carbon Dioxide 26, Anion Gap 7.2, BUN 8 L D, Creatinine 0.80, Estimated Creat Clear 128, Estimated GFR 100, Est GFR ( Amer) 121, Glucose 121 H, Calcium 7.9 L, Magnesium 1.8, Total Bilirubin 0.3, AST 118 H, ALT 34 D, Alkaline Phosphatase 80, C-Reactive Protein 271.8 H, Total Protein 5.9 L, Albumin 3.0 L D, Globulin 2.9, Albumin/Globulin Ratio 1.0 L 05/18/22 06:54: POC Glucose 141 H 05/18/22 10:00: CSF Volume 3, CSF Appearance Clear, CSF WBC 0, CSF RBC 0, CSF Mononuclear WBCs % TNP, CSF Polynuclear WBCs % TNP 05/18/22 10:00: CSF Volume 3, CSF Appearance Clear, CSF WBC 0, CSF RBC 0, CSF Mononuclear WBCs % TNP, CSF Polynuclear WBCs % TNP 05/18/22 10:00: CSF Glucose 84 H, CSF Total Protein 76.0 H 05/18/22 11:34: POC Glucose 200 H I & O for Labs for Last 24 Hours: Intake & Output 05/15/22 05/16/22 05/17/22 05/18/22 22:59 22:59 23:59 23:59 Intake Total 700 / 700 Output Total 1450 / 1450 Balance -750 / -750 Weight 86.954 kg Microbiology Reports for the Last 24 Hours: Microbiology 05/18/22 10:00 Cerebral Spinal Fluid Gram Stain - Final 05/17/22 03:30 Urine,Catheterized Urine Culture - Preliminary NO GROWTH AFTER 24 HOURS 05/17/22 03:00 Blood Blood Culture - Preliminary 05/17/22 03:00 Blood Blood Culture - Preliminary Constitutional: Present no acute distress, average body habitus and chronically ill appearing Head: Present atraumatic and normocephalic Comment:: No periorbital edema. Tenderness over left frontal sinus. Poor dentition with numerous teeth broken off at gumline with caries Neck: Present normal inspection Respiratory: Present normal respiratory effort; Absent accessory muscle use, rhonchi, wheezes or crackles Cardiac: Present Reg Rate and Rhythm GI: Present soft and normal bowel sounds; Absent distention or tenderness Extremities: Present normal inspection and full ROM Skin: Present intact; Absent erythema Neuro: Present Grossly Intact, alert, awake, oriented x 3 and moves all extremities Comment:: Flat affect Assessment and Plan *Assessment
[2022-05-18 17:05] LABS: POC Glucose,Bedside 217 (70-110)
[2022-05-18 19:37] LABS: Vancomycin,Trough 11.5 ug/mL (5.0-10.0)
[2022-05-18 20:00] VITALS: BP 138/71; PULSE 84; RESP 16; TEMP 36.8; O2SAT 96
[2022-05-18 22:48] LABS: Vancomycin,Peak 13.2 ug/ml (11-39)
[2022-05-18 23:07] LABS: POC Glucose,Bedside 153 (70-110)
[2022-05-19] VITALS: BP 128/70; PULSE 79; RESP 14; TEMP 37; O2SAT 96
[2022-05-19 04:00] VITALS: BP 142/79; PULSE 77; RESP 18; TEMP 37.3; O2SAT 92; BMI 25.1
[2022-05-19 05:34] LABS: POC Glucose,Bedside 149 (70-110)
[2022-05-19 07:13] LABS: Alanine Aminotransferase 36 U/L (12-78); Albumin Level 2.9 g/dl (3.5-5.0); Alkaline Phosphatase 79 U/L (38-126); Anion Gap 10.5 mEq/L (5-15); Aspartate Amino Transferase 135 U/L (17-59); Bilirubin,Total 0.2 mg/dl (0.2-1.3); Blood Urea Nitrogen 5 mg/dl (9-20); Carbon Dioxide 24 mmol/L (22.0-30.0); Chloride 105 mmol/L (98-107); Creatinine Clearance Estimated 142 mL/min (50-200); Estimated Glomerular Filt Rate 117 ml/min (>60); GFR (African American) 142 ML/MIN (>60); Globulin 2.9 g/dL (1.3-3.2); Glucose 150 mg/dl (74-100); Potassium 3.5 mmoL/L (3.5-5.1); Sodium 136 mmol/L (136-145); Total Protein,Serum 5.8 g/dl (6.3-8.2)
[2022-05-19 07:20] VITALS: BP 133/74; PULSE 78; RESP 18; TEMP 36.8; O2SAT 97
--- NOTE | 2022-05-19 09:32 | EXP.PHA.CONS ---
Pharmacy Consult Date: 05/19/22 Time: 09:32 Referring provider: DR. ADAMS Reason for Consult:: VANCOMYCIN LEVELS Allergies Allergy/AdvReac Type Severity Reaction Status Date / Time risperidone Allergy Intermediate Rash Verified 04/24/21 09:56 Home Medications Medication Instructions Recorded Confirmed Type benztropine 2 mg tablet 2 mg PO BID Tremors 06/17/20 05/17/22 History calcium carbonate 200 mg calcium 1,000 mg PO TID Supplement 06/17/20 05/17/22 History (500 mg) chewable tablet clozapine 50 mg tablet 50 mg PO BID mood 06/17/20 05/17/22 History divalproex 125 mg capsule,delayed 500 mg PO BID seizures 06/17/20 05/17/22 History release sprinkle omega 4-pla-bmo-fish oil 300 2 cap PO BID Supplement 06/17/20 05/17/22 History mg-1,000 mg capsule omeprazole 40 mg capsule,delayed 40 mg PO DAILY acid reflux 06/17/20 05/17/22 History release propranolol 60 mg capsule,24 60 mg PO DAILY Hypertension 06/17/20 05/17/22 History hr,extended release simvastatin 20 mg tablet 20 mg PO HS Cholesterol 06/17/20 05/17/22 History fenofibrate 160 mg tablet 160 mg PO DAILY Cholesterol 03/28/21 05/17/22 History ibuprofen 600 mg tablet 600 mg PO Q6HP PRN Pain, Mild 03/28/21 05/17/22 History niacin 500 mg tablet,extended 500 mg PO HS Cholesterol 03/28/21 05/17/22 History release promethazine 25 mg tablet 25 mg PO Q4HP PRN Nausea And 03/28/21 05/17/22 History Vomiting sennosides 8.6 mg tablet 8.6 mg PO BID constipation 03/28/21 05/17/22 History sucralfate 100 mg/mL oral 10 ml PO QID stomach 03/28/21 05/17/22 History suspension perphenazine 4 mg tablet 4 mg PO TID mood 05/17/22 05/17/22 History sertraline 100 mg tablet 100 mg PO DAILY mood 05/17/22 05/17/22 History trazodone 150 mg tablet 150 mg PO HS sleep 05/17/22 05/17/22 History New Prescriptions to Start Prescriptions: Height: 1.83 m Weight: 84.277 kg Laboratory Results:: Laboratory Results - last 24 hr 05/18/22 10:00: CSF Volume 3, CSF Appearance Clear, CSF WBC 0, CSF RBC 0, CSF Mononuclear WBCs % TNP, CSF Polynuclear WBCs % TNP 05/18/22 10:00: CSF Volume 3, CSF Appearance Clear, CSF WBC 0, CSF RBC 0, CSF Mononuclear WBCs % TNP, CSF Polynuclear WBCs % TNP 05/18/22 10:00: CSF Glucose 84 H, CSF Total Protein 76.0 H 05/18/22 11:34: POC Glucose 200 H 05/18/22 16:57: POC Glucose 217 H 05/18/22 17:40: Vancomycin Trough 11.5 H 05/18/22 22:11: Vancomycin Peak 13.2 05/18/22 23:00: POC Glucose 153 H 05/19/22 05:27: POC Glucose 149 H 05/19/22 06:25: Sodium 136, Potassium 3.5, Chloride 105, Carbon Dioxide 24, Anion Gap 10.5, BUN 5 L D, Creatinine 0.70, Estimated Creat Clear 142, Estimated GFR 117, Est GFR ( Amer) 142, Glucose 150 H, Calcium 8.0 L, Total Bilirubin 0.2, AST 135 H, ALT 36, Alkaline Phosphatase 79, Total Protein 5.8 L, Albumin 2.9 L, Globulin 2.9, Albumin/Globulin Ratio 1.0 L Medical History: Medical History (Updated 05/18/22 @ 17:04 by Yony Adams MD) Cataract Cataract Dental caries Diabetes Falls Gait instability Mood disorder Sinusitis Tremors of nervous system Assessment and Plan Assessment and plan all Dx Assessment and Plan for all problems:: PATIENT'S VANCOMYCIN TROUGH LEVEL WAS 11.5 MG/DL AT 1740 LAST NIGHT. RECORDED PEAK AT 2211 WAS 13.2 MG/DL. BASED ON TROUGH LEVEL, RECOMMEND CONTINUING WITH VANCOMYCIN 1500 MG Q12H AT THIS TIME. WILL OBTAIN REPEAT TROUGH LEVEL TONIGHT TO CONFIRM.
--- NOTE | 2022-05-19 09:47 | HMH.OTEV ---
OT Inpatient Evaluation Rehab OT IP Evaluation Start: 05/19/22 07:57 Freq: ONCE Status: Active Protocol: Document 05/19/22 09:39 LEXIE (Rec: 05/19/22 09:[id number] Rehab OT IP Assessment Subjective History Pt was seen standing at bedside commode upon arrivial. Pt was oriented x3 person, place, and . Pt was admitted to [facility] on 05/17/22 due to Fevers, Fall. Pt reports that he was independent in all ADLs. Pt reports that he has assistance for all IADL tasks. He reports that he lives at [facility]. Pt has a past medical history of the following: Cataract Cataract Diabetes Mood disorder Tremors of nervous system Pt was left resting in chair with call elizalde and all other needs within reach. Subjective I just needed to use the bathroom. Objective Patient Orientation Person,Place,Birthday Upper Extremity Gross ROM WNL Transfer Training Sit/Stand Transfer Assist Level Supervision/Stand by Chair Transfer Ability Supervision/Stand by Lower Body Dressing Ability Independent decrease in endurance Yes Rehab OT IP prob,goals,plan Problems Date of Evaluation: 05/19/22 Rehab Potential Rehab Potential Innapropriate for Skilled Therapy Discharge Plan OT Discharge Plan Pt is currently at his baseline for all ADLs and functional transfers. Upon discharge by physician, pt is safe to return to [facility]. Eval Complexity Eval Charge Codes 15926 - Low Complexity G Codes G -code Required No PHYSICIAN CERTIFICATION: I certify the specified therapy services for Ney Snyder are required, authorized, and reviewed every 30 days.
[2022-05-19 09:48] VITALS: PULSE 80; RESP 18
--- NOTE | 2022-05-19 10:39 | HMH.PTEV ---
Physical Therapy Evaluation Rehab PT IP Evaluation Start: 05/19/22 07:57 Freq: ONCE Status: Active Protocol: Document 05/19/22 10:21 FRANKIE (Rec: 05/19/22 10:39 FRANKIE [id number]) Subjective/History History History 56 yowm adm to [facility] with SIRS and generalized weakness. He is resident of local personal longterm and generally independent with all mobility at baseline. Subjective Subjective He reports feeling much better this am and agrees to OOB activity. Rehab PT IP Eval Objective Appearance Patient Behavior Appropriate Patient Orientation Person,Place,Time Difficulty following instructions none Speech Pattern Clear Ambulation Patient Able to Ambulate Yes Ambulation Observation IP General Gait Pattern Observation No Deviations/Normal Ambulation Distance (feet) 75 Ambulation Assistive Device None Ambulation Ability Supervision/Stand by Balance Ability to Arise Able, uses arms to help Sitting Balance Steady, safe Standing Balance Steady, wide stance Dynamic Sitting Balance Ability Good Dynamic Standing Balance Ability Good Transfers Bed Transfer Ability Supervision/Stand by Chair Transfer Ability Supervision/Stand by Sit to Stand Bed Transfer Ability Supervision/Stand by Sit to Stand Chair Transfer Ability Supervision/Stand by ROM All Extremities PT ROM Status WFL MMT All Extremities PT MMT WFL Rehab PT IP prob,goals,plan Problems Date of Evaluation: 05/19/22 Discharge Plan PT Discharge Plan Pt presents at baseline for all mobility at this time, no current inpatient therapy needs. he is appropriate to return to personal longterm once medically stable for d/c. G -code Required No Eval Complexity Eval Charge Codes 86582 - Moderate Complexity PHYSICIAN CERTIFICATION: I certify the specified therapy services for Ney Snyder are required, authorized, and reviewed every 30 days.
[2022-05-19 11:56] LABS: POC Glucose,Bedside 197 (70-110)
[2022-05-19 12:00] VITALS: BP 142/79; PULSE 77; RESP 18; TEMP 36.9; O2SAT 98
--- NOTE | 2022-05-19 12:53 | SW/DCPLANNER ---
Addendum entered by Jacquelyn Collins 05/19/22 14:15: Patient will return to [facility] today. [employer] has been arranged for transportation back to [facility] today and for upcoming appointments: 05/20/22 at 12PM, at 2PM, Saturdays at 11AM and Magnolia García is aware that patient will need transportation on Sundays due to [employer] not running. Original Note: This patient currently resides at [facility]. PT evaluated patient and stated that he is safe to return back to [facility]. stated that patient will need a PICC line and two weeks of IV antibiotics. Magnolia García has been updated and is fine with patient returning with PICC and IV antibiotics as an outpatient at [facility]. Magnolia stated that she will call [employer] and arrange for transport to start tomorrow for patient: Magnolia will call me back once this is completed. has stated that patient is medically stable for discharge today.
--- NOTE | 2022-05-19 13:00 | EXP.DC.SUM ---
General Admission date:: 05/17/22 Discharge date: 05/19/22 HPI HPI HPI: Mr. Snyder is a 56-year-old male with a past medical history of Mood Disorder, Diabetes, and Tremors. He presents to [facility] due to an unwitnessed fall and fevers, he was seen earlier in the day in the ER due to fevers and work-up was unremarkable, he was diagnosed with an upper respiratory infection. He denies any pain, but is complaining of chills, nasal congestion and generalized body aches. In the ER the patient underwent an extensive work-up on both dates that included: CT of the head, CT chest, CT abdomen and pelvis, CT cervical spine that showed no acute findings. CBC showed a WBC of 17.6, Lactic Acid was 5.2. On 05/16 temperature was noted to be 101.5, on return on 05/17 temperature was 102.6. Covid and Flu testing were negative on 05/16. The patient will be admitted with initial impression: SIRS, blood cultures, urine culture, MRSA pcr have been ordered. The patient has been started empirically on broad spectrum while we await cultures. Hospital Course Hospital Course Hospital Course: 56-year-old male who is a resident of a local [facility] presents to the ER with fevers initially diagnosed with upper respiratory tract infection sent back to [facility], presented again with worsening fevers and falls. Patient found to be bacteremic. Unclear source for bacteremia however likely etiologies are either respiratory infection versus oral infection given patient's very poor dentition with significant decay. Admitted for sepsis and Streptococcus bacteremia. Patient has done well and is meeting discharge criteria. Will need to complete a total of 14 days of antibiotics. Problems addressed as follows: -Sepsis -Streptococcus bacteremia Unclear initial or primary source for infection.? Multiple bottles positive for Streptococcus on 05/16 and 05/17. First negative blood culture from 05/18. This is day 1 of 14 days of IV antibiotics. Will transition to ceftriaxone given the sensitivity of his blood cultures. Plan to complete IV antibiotics with ceftriaxone 1 g daily. Last dose 05/31/2022. Patient will need to have PICC line placed tomorrow when he comes to infusion for antibiotics. PICC line may be removed after last IV dose. Broad work-up for radiology, CT head showed significant sinusitis but appears chronic in nature. ENT was consulted. Their concern is for dental decay as a more plausible culprit. Patient would benefit from evaluation with dentist. - Falls -Weakness PT and OT evaluating patient, he is independent and ambulatory. No further falls during hospitalization. Weakness likely secondary to sepsis - Mood disorder: Continue home medications including Depakote, clozapine, zoloft. Mood stable during admission. Did not require trazodone during admission. Recommend reevaluation in the outpatient setting - Tremors: Continued home benztropine - Diabetes: Resume metformin at discharge - Hypertension: Continue home propranolol Stable for discharge back to [facility]. Will need daily transport for outpatient infusion at [facility]. Strongly recommend close follow-up with dentist to further address oral decay Exam Data for Last 24 hours Vital signs and Labs for Last 24 Hours: Temp Pulse Resp BP Pulse Ox 98.3 F 80 18 133/74 97 05/19/22 07:20 05/19/22 09:48 05/19/22 09:48 05/19/22 07:20 05/19/22 07:20 Laboratory Results - last 24 hr 05/18/22 10:00: CSF Mononuclear WBCs % TNP, CSF Polynuclear WBCs % TNP 05/18/22 10:00: CSF Mononuclear WBCs % TNP, CSF Polynuclear WBCs % TNP 05/18/22 16:57: POC Glucose 217 H 05/18/22 17:40: Vancomycin Trough 11.5 H 05/18/22 22:11: Vancomycin Peak 13.2 05/18/22 23:00: POC Glucose 153 H 05/19/22 05:27: POC Glucose 149 H 05/19/22 06:25: Sodium 136, Potassium 3.5, Chloride 105, Carbon Dioxide 24, Anion Gap 10.5, BUN 5 L D, Creatinine 0.70, Estimated Creat Clear 142, Estimat
[2022-05-19 13:41] VITALS: BMI 25.0
[2022-05-19 16:07] LABS: Adenovirus F 40/41, stool Not Detected (NotDetected); Astrovirus Not Detected (NotDetected); Campylobacter Not Detected (NotDetected); Clostridium Difficile A/B, PCR Not Detected (NotDetected); Cryptosporidium Not Detected (NotDetected); Cyclospora Cayetanesis Not Detected (NotDetected); Entamoeba histolytica Not Detected (NotDetected); Enteroaggregative E coli Not Detected (NotDetected); Enteropathogenic E coli Not Detected (NotDetected); Enterotoxigenic E coli Not Detected (NotDetected); Giardia lamblia Not Detected (NotDetected); Norovirus Not Detected (NotDetected); Plesimonas Shigalloides, PCR Not Detected (NotDetected); Rotavirus A Not Detected (NotDetected); Salmonella, PCR Not Detected (NotDetected); Sapovirus Not Detected (NotDetected); Shiga-like toxin E coli Not Detected (NotDetected); Shigella Enterovasive E coli Not Detected (NotDetected); Vibrio Cholerae Not Detected (NotDetected); Vibrio, PCR Not Detected (NotDetected); Yersinia Entercolitica, PCR Not Detected (NotDetected)
[2022-05-22 11:24] LABS: Enterovirus,CSF PCR Negative (Negative)
[2022-05-28 23:26] LABS: MRSA DNA PCR NEGATIVE
== END 2022-05-19 16:45 | disposition home or self-care (01) | DRG 871 ==
LOC: ER 04:42 → 2ND 05-18 01:04
PROVIDERS: Nurse Practitioner Family; Admitting Provider Internal Medicine Adolescent Medicine; Emergency Provider Emergency Medicine; PCP Emergency Medicine; Visit Provider Internal Medicine Adolescent Medicine
DX: A40.9 Streptococcal sepsis, unspecified (principal); E11.10 Type 2 diabetes mellitus with ketoacidosis without coma; I10 Essential (primary) hypertension; R25.1 Tremor, unspecified; F39 Unspecified mood [affective] disorder; W19.XXXA Unspecified fall, initial encounter; J32.9 Chronic sinusitis, unspecified; R53.1 Weakness
CPT/HCPCS: 62272; 36415; 62270; 70450; 70496; 70498; 71045; 71250; 72125; 72170; 74176; 80053; 80202; 81001; 82009; 82803; 82945; 82962; 83036; 83605; 83735; 84155; 84484; 85007; 85025; 86140; 86850; 87040; 87070; 87077; 87086; 87186; 87205; 87498; 87507; 87581; 87632; 87641; 87798; 89051; 93005; 96360; 96361; 97162; 97165; 99285; C9803; J0131; J0696; Q9967; U0003; U0005

== ENCOUNTER 2022-05-20 11:54 | Outpatient (CLI) | payer MEDICAID, SELFPAY ==
[2022-05-20 13:22] VITALS: BP 139/89; PULSE 82; RESP 18; O2SAT 99
[2022-05-20 13:30] VITALS: BP 148/91; PULSE 84; RESP 18; TEMP 36.4; O2SAT 99
== END 2022-05-20 13:22 | disposition home or self-care (01) ==
LOC: INF 11:55
PROVIDERS: PCP Emergency Medicine; Visit Provider Internal Medicine Adolescent Medicine
DX: R78.81 Bacteremia (principal); B95.4 Other streptococcus as the cause of diseases classified elsewhere
CPT/HCPCS: 96365; J0696

== ENCOUNTER 2022-05-21 13:55 | Outpatient (CLI) | payer MEDICAID, SELFPAY ==
[2022-05-21 14:45] VITALS: BP 140/88; PULSE 79; RESP 18; O2SAT 98
--- NOTE | 2022-05-21 14:49 | PC.NURSE ---
1410 - Spoke to CHRISTOPHER Wilson to verify that it was okay to place midline instead of a PICC line d/t patient only needing 14 days of abx.
[2022-05-21 15:25] VITALS: BP 154/84; PULSE 78; RESP 18; O2SAT 98
--- NOTE | 2022-05-21 15:25 | PC.NURSE ---
1525-CALLED JANE HAGEN AND GAVE UPDATE ABOUT MID LINE PLACEMENT IN LEFT UPPER ARM;LEFT MESSAGE WITH SILVERIO.
== END 2022-05-21 15:25 | disposition home or self-care (01) ==
LOC: INF 13:55
PROVIDERS: PCP Emergency Medicine; Visit Provider Internal Medicine Adolescent Medicine
DX: R78.81 Bacteremia (principal); B95.0 Streptococcus, group A, as the cause of diseases classified elsewhere
CPT/HCPCS: 36410; 36569; 96365; J0696

== ENCOUNTER 2022-05-22 13:29 | Outpatient (CLI) | payer MEDICAID, SELFPAY ==
[2022-05-22 13:50] VITALS: BP 126/83; PULSE 77; RESP 16; O2SAT 97
[2022-05-22 14:20] VITALS: BP 142/82; PULSE 73; RESP 16
== END 2022-05-22 14:45 | disposition home or self-care (01) ==
LOC: INF 13:29
PROVIDERS: PCP Emergency Medicine; Visit Provider Internal Medicine Adolescent Medicine
DX: R78.81 Bacteremia (principal); B95.1 Streptococcus, group B, as the cause of diseases classified elsewhere
CPT/HCPCS: 96365; J0696

== ENCOUNTER → 2022-05-23 13:00 | Outpatient (CLI) | payer MEDICAID, SELFPAY ==
[2022-05-23 13:10] VITALS: BP 151/75; PULSE 76; RESP 20; TEMP 37; O2SAT 97
== END ==
PROVIDERS: PCP Emergency Medicine; Visit Provider Internal Medicine Adolescent Medicine
DX: R78.81 Bacteremia (principal); B95.4 Other streptococcus as the cause of diseases classified elsewhere
CPT/HCPCS: 96365; J0696

== ENCOUNTER → 2022-05-24 14:04 | Outpatient (CLI) | payer MEDICAID, SELFPAY | PROVIDERS: PCP Emergency Medicine; Visit Provider Internal Medicine Adolescent Medicine | DX: R78.81 Bacteremia (principal); B95.4 Other streptococcus as the cause of diseases classified elsewhere | CPT/HCPCS: 96365; J0696 ==

== ENCOUNTER 2022-05-25 13:42 | Outpatient (CLI) | payer MEDICAID, SELFPAY ==
[2022-05-25 13:55] VITALS: BP 177/74; PULSE 80; RESP 18; O2SAT 100
[2022-05-25 14:45] VITALS: BP 170/91; PULSE 77; RESP 18
== END 2022-05-25 14:40 | disposition home or self-care (01) ==
LOC: INF 13:43
PROVIDERS: PCP Emergency Medicine; Visit Provider Internal Medicine Adolescent Medicine
DX: R78.81 Bacteremia (principal); B95.3 Streptococcus pneumoniae as the cause of diseases classified elsewhere
CPT/HCPCS: 96365; J0696

== ENCOUNTER 2022-05-26 13:57 | Outpatient (CLI) | payer MEDICAID, SELFPAY ==
[2022-05-26 14:15] VITALS: BP 142/70; PULSE 74; RESP 18; O2SAT 99
[2022-05-26 14:58] VITALS: BP 160/82; PULSE 85; RESP 18; O2SAT 99
== END 2022-05-26 14:59 | disposition home or self-care (01) ==
LOC: INF 13:57
PROVIDERS: PCP Emergency Medicine; Visit Provider Internal Medicine Adolescent Medicine
DX: R78.81 Bacteremia (principal); B95.4 Other streptococcus as the cause of diseases classified elsewhere
CPT/HCPCS: 96365; J0696

== ENCOUNTER 2022-05-27 13:52 | Outpatient (CLI) | payer MEDICAID, SELFPAY ==
[2022-05-27 14:05] VITALS: BP 120/69; PULSE 84; RESP 16; O2SAT 97
[2022-05-27 14:45] VITALS: BP 136/74; PULSE 82; RESP 16
== END 2022-05-27 15:00 | disposition home or self-care (01) ==
LOC: INF 13:52
PROVIDERS: PCP Emergency Medicine; Visit Provider Internal Medicine Adolescent Medicine
DX: R78.81 Bacteremia (principal); B95.4 Other streptococcus as the cause of diseases classified elsewhere
CPT/HCPCS: 96365; J0696

== ENCOUNTER 2022-05-28 14:01 | Outpatient (CLI) | payer MEDICAID, SELFPAY ==
[2022-05-28 14:25] VITALS: BP 145/84; PULSE 71; RESP 18; O2SAT 99
[2022-05-28 14:56] VITALS: BP 148/87; PULSE 68; RESP 18; O2SAT 99
== END 2022-05-28 14:56 | disposition home or self-care (01) ==
LOC: INF 14:02
PROVIDERS: PCP Emergency Medicine; Visit Provider Internal Medicine Adolescent Medicine
DX: R78.81 Bacteremia (principal); B95.4 Other streptococcus as the cause of diseases classified elsewhere
CPT/HCPCS: 96365; J0696

== ENCOUNTER 2022-05-29 13:22 | Outpatient (CLI) | payer MEDICAID, SELFPAY ==
[2022-05-29 13:50] VITALS: BP 149/86; PULSE 67; RESP 18; TEMP 36.7; O2SAT 99
[2022-05-29 14:25] VITALS: BP 135/84; PULSE 68; RESP 18; O2SAT 97
== END 2022-05-29 14:25 | disposition home or self-care (01) ==
LOC: INF 13:23
PROVIDERS: PCP Emergency Medicine; Visit Provider Internal Medicine Adolescent Medicine
DX: R78.81 Bacteremia (principal); B95.4 Other streptococcus as the cause of diseases classified elsewhere
CPT/HCPCS: 96365; J0696

== ENCOUNTER 2022-05-30 13:47 | Outpatient (CLI) | payer MEDICAID, SELFPAY | END 2022-05-30 15:55 | disposition home or self-care (01) | LOC: INF 13:48 | PROVIDERS: PCP Emergency Medicine; Visit Provider Internal Medicine Adolescent Medicine | DX: R78.81 Bacteremia (principal); B95.0 Streptococcus, group A, as the cause of diseases classified elsewhere | CPT/HCPCS: J0696 ==

== ENCOUNTER 2022-10-12 20:41 | Emergency (ER) | payer MEDICAID, SELFPAY ==
[2022-10-12 20:41] VITALS: BP 141/66; PULSE 94; RESP 16; TEMP 36.5; O2SAT 98; BMI 27.1
--- NOTE | 2022-10-12 20:46 | HMH.EDGENADL ---
Discharge Plan Disposition Patient Disposition: Still a Patient Condition: Good Prescriptions Prescriptions: No Action sucralfate [Carafate] 100 mg/mL suspension 10 ml PO ACHS propranolol 60 mg capsule,extended release 24 hr 60 mg PO DAILY sertraline 100 mg tablet 100 mg PO DAILY omeprazole 40 mg capsule,delayed release(DR/EC) 40 mg PO AM simvastatin 20 mg tablet 20 mg PO HS calcium carbonate [Raji-Gest Antacid] 200 mg calcium (500 mg) tablet,chewable 1,000 mg PO TIDWMEAL niacin 500 mg tablet 500 mg PO HS benztropine 2 mg tablet 2 mg PO BID divalproex 125 mg capsule, delayed rel sprinkle 500 mg PO BID clozapine 50 mg tablet 50 mg PO BID fenofibrate 120 mg Tablet 120 mg PO AM Fish Oil 1,000 mg Capsule 2,000 cap PO BID Referrals Follow up/Referrals: Provider,Referral, [Primary Care Provider] - See instructions Activity Restrictions/Add. Instructions Additional Instructions/Restrictions: You were evaluated in the emergency department today. It is possible that you had a breakthrough seizure causing your issues, but it is also possible that it could be due to simple dehydration. Make sure that you stay orally hydrated and take your medications at home as prescribed. Follow-up closely with your primary care provider within next 48 hours. Return to the emergency department for any new or worsening symptoms. Clinical Impressions Clinical Impression: Dehydration, Acidosis, lactic, General weakness Instructions Patient Instructions: DI for Dehydration -- Adult, DI for Muscle Weakness Discharge ED Provider: Nicole Ann General Adult HPI <Reymundo Martin MD - Last Filed: 10/12/22 22:46> General Chief complaint: Weakness Stated complaint: Fall Time Seen by Provider: 10/12/22 20:46 History of Present Illness HPI narrative: Patient has a PMHx significant for diabetes, anxiety, depression, GERD, schizophrenia, seizures on divalproex currently at an assisted living facility who presents to the ED with complaints of falls and weakness. Patient notes that over the past few weeks, he has been getting progressively weaker and weaker, especially in his legs. Patient notes that he has had multiple falls, including 4 unwitnessed falls today where staff has had to help him get back up. Patient denies any head trauma, negative LOC, negative blood thinners. Ultimately, EMS was called by the facility due to worsening weakness and recurrent falls. Per EMS, staff reported that the patient has a long history of doing things to seek attention. Related Data Home Medications Medication Instructions Recorded Confirmed benztropine 2 mg tablet 2 mg PO BID Parkinson's 10/12/22 10/12/22 calcium carbonate 200 mg calcium 1,000 mg PO TIDWMEAL Supplement 10/12/22 10/12/22 (500 mg) chewable tablet (Raji-Gest Antacid) clozapine 50 mg tablet 50 mg PO BID Psych 10/12/22 10/12/22 divalproex 125 mg capsule,delayed 500 mg PO BID Seizure 10/12/22 10/12/22 release sprinkle fenofibrate 120 mg tablet 120 mg PO AM Supplement 10/12/22 10/12/22 niacin 500 mg tablet 500 mg PO HS Supplement 10/12/22 10/12/22 omega-3 fatty acids-vitamin E 2,000 cap PO BID Supplement 10/12/22 10/12/22 1,000 mg capsule omeprazole 40 mg capsule,delayed 40 mg PO AM Acid Reflux 10/12/22 10/12/22 release propranolol 60 mg capsule,24 60 mg PO DAILY Heart Rhythm 10/12/22 10/12/22 hr,extended release sertraline 100 mg tablet 100 mg PO DAILY Mood 10/12/22 10/12/22 simvastatin 20 mg tablet 20 mg PO HS High Cholesterol 10/12/22 10/12/22 sucralfate 100 mg/mL oral 10 ml PO ACHS Gatric ulcer 10/12/22 10/12/22 suspension (Carafate) Allergies Allergy/AdvReac Type Severity Reaction Status Date / Time risperidone Allergy Intermediate Rash Verified 04/24/21 09:56 [facility] <Reymundo Martin MD - Last Filed: 10/12/22 22:46> [facility] Disclaimer: The information contained in this section
--- NOTE | 2022-10-12 20:50 | XR_ITS ---
PROCEDURE INFORMATION: Exam: XR Chest Exam date and time: 10/12/2022 8:57 PM Age: 56 years old Clinical indication: Other: Weakness TECHNIQUE: Imaging protocol: Radiologic exam of the chest. Views: 1 view. COMPARISON: CR XR CHEST PORTABLE 05/17/2022 3:32 AM FINDINGS: Lungs: Lungs are well expanded. Mild bronchial wall thickening. Left basal subsegmental atelectasis versus scarring. No consolidation. Pleural spaces: No pleural effusion. No pneumothorax. Heart/Mediastinum: Stable cardiomediastinal silhouette. Bones/joints: No acute osseous abnormality. IMPRESSION: No acute findings.
--- NOTE | 2022-10-12 20:50 | CT_ITS ---
PROCEDURE INFORMATION: Exam: CT Head Without Contrast Exam date and time: 10/12/2022 9:06 PM Age: 56 years old Clinical indication: Injury or trauma; Bleeding/hemorrhage; Patient HX: States multiple falls; Additional info: Weakness and fall TECHNIQUE: Imaging protocol: Computed tomography of the head without contrast. Radiation optimization: All CT scans at this facility use at least one of these dose optimization techniques: automated exposure control; mA and/or kV adjustment per patient size (includes targeted exams where dose is matched to clinical indication); or iterative reconstruction. REPORTING DATA: Count of CT and Cardiac NM exams in prior 12 months: This patient has received 8 known CTs and 0 known cardiac nuclear medicine studies in the 12 months prior to the current study. COMPARISON: CT HEAD/BRAIN WO CON 05/17/2022 2:10 AM FINDINGS: Brain: No acute intracranial hemorrhage. No mass effect or midline shift. Basal cisterns are patent. Normal heller-white matter differentiation. Mild diffuse cerebral and cerebellar volume loss for patient age. Cerebral ventricles: No ventriculomegaly. Paranasal sinuses: Visualized sinuses are unremarkable. Mastoid air cells: Visualized mastoid air cells are clear. Orbital cavities: Bilateral cataract lens replacement. Bones/joints: No acute calvarial fracture. Soft tissues: Mild posterior scalp soft tissue swelling. IMPRESSION: No acute intracranial findings.
--- NOTE | 2022-10-12 20:50 | CT_ITS ---
PROCEDURE INFORMATION: Exam: CT Cervical Spine Without Contrast Exam date and time: 10/12/2022 9:06 PM Age: 56 years old Clinical indication: Injury or trauma; Weakness; Blunt trauma; Patient HX: States multiple falls; Additional info: Weak TECHNIQUE: Imaging protocol: Computed tomography of the cervical spine without contrast. Radiation optimization: All CT scans at this facility use at least one of these dose optimization techniques: automated exposure control; mA and/or kV adjustment per patient size (includes targeted exams where dose is matched to clinical indication); or iterative reconstruction. REPORTING DATA: Count of CT and Cardiac NM exams in prior 12 months: This patient has received 8 known CTs and 0 known cardiac nuclear medicine studies in the 12 months prior to the current study. COMPARISON: CT CERVICAL SPINE WO CON 05/17/2022 2:12 AM FINDINGS: Bones/joints: No acute fracture or malalignment of the cervical spine. Vertebral body heights are maintained. Mild-moderate degenerative disc disease and facet arthropathy at C5-C6 associated with severe right neural foraminal narrowing and mild central canal stenosis. Lungs: Visualized lung apices are clear. Soft tissues: Unremarkable. IMPRESSION: 1. No acute osseous abnormality of the cervical spine. 2. Severe right C5-C6 neural foraminal narrowing.
--- NOTE | 2022-10-12 20:50 | ECG_ITS ---
APPROVED REPORT Exam: Resting ECG HR:92 bpm ECG Measurements Heart Rate 92 AXES OR 150 P 69 QRSd 98 QRS 39 QT 371 T 33 QTc 421 Conclusion SINUS RHYTHM MODERATE ST DEPRESSION [0.05+ mV ST DEPRESSION] ABNORMAL ECG UNCONFIRMED REPORT Electronically signed by : Paco Quick MD 10/13/2022 20:47:25
[2022-10-12 20:57] LABS: Coronavirus 19, PCR Not Detected (NotDetected); Influenza A, PCR Not Detected (NotDetected); Influenza B, PCR Not Detected (NotDetected)
--- NOTE | 2022-10-12 20:58 | PC.NURSE ---
Pt gone to RAD via stretcher
--- NOTE | 2022-10-12 21:00 | PC.NURSE ---
Patient gone to RAD at this time.
[2022-10-12 21:03] LABS: Microscopic, Urine URINE MICROSCOPIC (MICROSCOPIC)
[2022-10-12 21:06] LABS: Appearance,Urine CLEAR (Clear); Bilirubin,Urine Negative (Negative); Blood, Urine TRACE-I (Negative); Color,Urine YELLOW (Yellow); Glucose,Urine (UA) Negative (Negative); Ketones,Urine TRACE (Negative); Leukocyte Esterase,Urine Negative (Negative); Nitrate,Urine Negative (Negative); Protein,Urine Negative (Negative); Urobilinogen,Urine 0.2 EU/dl (0.2)
--- NOTE | 2022-10-12 21:09 | PC.NURSE ---
patient back to floor at this time.
[2022-10-12 21:28] LABS: Bacteria,Urine Trace /lpf; WBC,Urine Occasional #/hpf (0-3)
[2022-10-12 21:30] VITALS: BP 128/69; PULSE 90; RESP 20; O2SAT 92
--- NOTE | 2022-10-12 21:33 | PC.NURSE ---
Pt accepted to [facility] by Dr. Hatch
[2022-10-12 21:34] LABS: Basophils % 0.3 % (0.1-2.0); Eosinophils # 0.2 K/mm3 (0.0-0.4); Eosinophils % 2.5 % (0.1-12.0); Hematocrit 30.2 % (42.0-52.0); Hemoglobin 9.1 g/dL (14.1-18.0); Lymphocytes # 2.2 K/mm3 (0.7-4.5); Lymphocytes % 31.8 % (10-50); Mean Corpuscular HGB Conc 30.3 g/dL (31.8-35.4); Mean Corpuscular Hemoglobin 26.5 pg (27.0-31.2); Mean Corpuscular Volume 87.5 fl (80-94); Mean Platelet Volume 8.1 fl (7.4-10.4); Monocytes # 0.7 K/mm3 (0.1-1.0); Neutrophils # 3.8 K/mm3 (1.8-7.8); Neutrophils % 55.5 % (37.0-80.0); Platelet Count 324 K/mm3 (142-424); Red Blood Count 3.45 M/mm3 (4.60-6.20); Red Cell Distribution Width 21.2 % (11.5-17.5); White Blood Count 6.9 K/mm3 (4.8-10.8)
[2022-10-12 21:37] LABS: Alanine Aminotransferase 45 U/L (12-78); Albumin Level 3.8 g/dl (3.5-5.0); Albumin/Globulin Ratio 1.2 (1.1-1.8); Alkaline Phosphatase 75 U/L (38-126); Anion Gap 22.4 mEq/L (5-15); Aspartate Amino Transferase 100 U/L (17-59); Bilirubin,Total 0.2 mg/dl (0.2-1.3); Blood Urea Nitrogen 8 mg/dl (9-20); Calcium 9.2 mg/dl (8.4-10.2); Carbon Dioxide 16 mmol/L (22.0-30.0); Chloride 98 mmol/L (98-107); Creatinine Clearance Estimated 134 mL/min (50-200); Estimated Glomerular Filt Rate 100 ml/min (>60); GFR (African American) 121 ML/MIN (>60); Globulin 3.2 g/dL (1.3-3.2); Glucose 137 mg/dl (74-100); Potassium 3.4 mmoL/L (3.5-5.1); Sodium 133 mmol/L (136-145)
[2022-10-12 21:49] LABS: Troponin I < 0.01 ng/ml (0.00-0.034)
[2022-10-12 22:00] VITALS: BP 117/57; PULSE 86; O2SAT 92
[2022-10-12 22:30] VITALS: BP 117/56; PULSE 86; RESP 15; O2SAT 93
[2022-10-12 23:00] VITALS: BP 114/59; PULSE 86; RESP 15; O2SAT 93
[2022-10-12 23:30] VITALS: BP 118/54; PULSE 88; RESP 15; O2SAT 95
[2022-10-13] VITALS (10 sets, daily range): BP systolic 101–131; BP diastolic 47–73; PULSE 71–90; RESP 11–30; TEMP 36.8–37; O2SAT 94–97
[2022-10-13 00:14] LABS: Troponin I 0.01 ng/ml (0.00-0.034)
--- NOTE | 2022-10-13 00:36 | PC.NURSE ---
gave VO for repeat lactic at this time.
[2022-10-13 00:54] LABS: Reflex Lactic Add Lactic Reflex
[2022-10-13 01:07] LABS: Lactic Acid Follow Up (RFLX 1) 0.7 mmol/L (0.7-2.1)
--- NOTE | 2022-10-13 01:24 | PC.NURSE ---
[facility] contacted for patient pick-up
--- NOTE | 2022-10-13 02:00 | PC.NURSE ---
Called [facility] back to check on ride. Was told no one there has a drivers license or car to pick patient up until the morning. [facility] Garc[facility] stated they would call [employer] to see if an officer could bring patient back.
--- NOTE | 2022-10-13 02:32 | PC.NURSE ---
Called [facility] García back to check on ride for patient. Stated they called dispatch and they told them they would call them back if an officer could transport, but that was at 214. Wellington García to call dispatch back and advise rich
--- NOTE | 2022-10-13 03:07 | PC.NURSE ---
[facility]iron called to update on still not having an available mode of transport for the pt
--- NOTE | 2022-10-13 04:38 | PC.NURSE ---
Rounded on pt at this time. Resting in bed, no new needs
--- NOTE | 2022-10-13 05:35 | PC.NURSE ---
Rounded on pt. Pt resting in bed with eyes closed. Call light within reach. [facility]
--- NOTE | 2022-10-13 06:07 | PC.NURSE ---
Ordered breakfast tray for pt
--- NOTE | 2022-10-13 07:30 | PC.NURSE ---
contacted [facility] to arrange transportation for pt. Facility states they have no one with a drivers license to get the pt, they will call [facility] to see if they have someone and call me back
--- NOTE | 2022-10-13 07:31 | PC.NURSE ---
[facility] contacted for transportation again for follow up. states they are still trying to find a ride. pt resting comfortably.
--- NOTE | 2022-10-13 07:36 | PC.NURSE ---
[facility] called and states they will have someone available at 8 to pick up attendant pt.
--- NOTE | 2022-10-13 09:17 | PC.NURSE ---
[facility] contacted again because ride for Mr. Snyder has not arrived, she reports she will figure out whats going on.
--- NOTE | 2022-10-13 09:46 | PC.NURSE ---
Called [facility] Garc[facility] to check on the status of the ride, states I don't know I talked to my boss and she was supposed to have Azalia at [facility] to get come get him . I reached out to [facility] to check the status, they report Azalia got here at 8 and had to pass trays when she got here but she has left now . Pt and June, A RN notified of the situation.
== END 2022-10-13 10:06 | disposition still patient (30) ==
PROVIDERS: Emergency Medicine; Emergency Provider Emergency Medicine
DX: E87.20 Acidosis, unspecified (principal); E86.0 Dehydration; R53.1 Weakness; R29.6 Repeated falls; E11.9 Type 2 diabetes mellitus without complications; G40.909 Epilepsy, unspecified, not intractable, without status epilepticus; F41.9 Anxiety disorder, unspecified; F32.A Depression, unspecified; K21.9 Gastro-esophageal reflux disease without esophagitis
CPT/HCPCS: 36415; 70450; 71045; 72125; 80053; 81001; 83605; 84484; 85025; 87040; 87636; 93005; 96360; 96361; 99285

== ENCOUNTER 2023-12-10 14:31 | Outpatient (CLI) | payer MEDICAID, SELFPAY | END 2023-12-10 23:59 | disposition home or self-care (01) | LOC: LAB 14:34 | PROVIDERS: PCP Nurse Practitioner Family; Visit Provider Nurse Practitioner | DX: Z02.9 Encounter for administrative examinations, unspecified (principal) ==

== ENCOUNTER 2023-12-14 14:00 | Outpatient (CLI) | payer MEDICAID, SELFPAY ==
[2023-12-14 14:35] LABS: Basophils # 0.1 K/mm3 (0-0.2); Basophils % 1.1 % (0.1-2.0); Eosinophils # 0.3 K/mm3 (0.0-0.4); Eosinophils % 4.3 % (0.1-12.0); Hematocrit 42.2 % (42.0-52.0); Hemoglobin 14.8 g/dL (14.1-18.0); Lymphocytes # 2.1 K/mm3 (0.7-4.5); Lymphocytes % 29.9 % (10-50); Mean Corpuscular HGB Conc 35.1 g/dL (31.8-35.4); Mean Corpuscular Hemoglobin 31.8 pg (27.0-31.2); Mean Corpuscular Volume 90.5 fl (80-94); Mean Platelet Volume 8.5 fl (7.4-10.4); Monocytes # 0.5 K/mm3 (0.1-1.0); Monocytes % 6.9 % (1.7-9.3); Neutrophils # 4.1 K/mm3 (1.8-7.8); Neutrophils % 57.8 % (37.0-80.0); Platelet Count 258 K/mm3 (142-424); Red Blood Count 4.66 M/mm3 (4.60-6.20); White Blood Count 7.1 K/mm3 (4.8-10.8)
== END 2023-12-14 23:59 | disposition home or self-care (01) ==
LOC: LAB 14:02
PROVIDERS: PCP Nurse Practitioner Family; Visit Provider Nurse Practitioner
DX: Z79.899 Other long term (current) drug therapy (principal)
CPT/HCPCS: 36415; 85025

== ENCOUNTER 2024-01-18 10:02 | Outpatient (CLI) | payer MEDICAID, SELFPAY ==
[2024-01-18 10:21] LABS: Basophils # 0.1 K/mm3 (0-0.2); Basophils % 1.1 % (0.1-2.0); Eosinophils # 0.2 K/mm3 (0.0-0.4); Eosinophils % 4.9 % (0.1-12.0); Hematocrit 43.3 % (42.0-52.0); Hemoglobin 14.3 g/dL (14.1-18.0); Lymphocytes # 1.7 K/mm3 (0.7-4.5); Lymphocytes % 34.8 % (10-50); Mean Corpuscular Hemoglobin 31.4 pg (27.0-31.2); Mean Corpuscular Volume 95.2 fl (80-94); Mean Platelet Volume 9.1 fl (7.4-10.4); Monocytes # 0.4 K/mm3 (0.1-1.0); Monocytes % 8.6 % (1.7-9.3); Neutrophils # 2.5 K/mm3 (1.8-7.8); Neutrophils % 50.7 % (37.0-80.0); Platelet Count 204 K/mm3 (142-424); Red Blood Count 4.55 M/mm3 (4.60-6.20); Red Cell Distribution Width 14.1 % (11.5-17.5); White Blood Count 4.9 K/mm3 (4.8-10.8)
== END 2024-01-18 23:59 | disposition home or self-care (01) ==
LOC: LAB 10:03
PROVIDERS: PCP Nurse Practitioner; Visit Provider Nurse Practitioner
DX: Z79.899 Other long term (current) drug therapy (principal)
CPT/HCPCS: 85025

== ENCOUNTER 2024-02-14 21:03 | Emergency (ER) | payer MEDICAID, SELFPAY ==
[2024-02-14 21:03] VITALS: BP 149/88; PULSE 94; RESP 18; TEMP 37.4; O2SAT 95; BMI 30.2
--- NOTE | 2024-02-14 21:06 | CT_ITS ---
PROCEDURE INFORMATION: Exam: CT Head Without Contrast Exam date and time: 02/14/2024 10:01 PM Age: 58 years old Clinical indication: Injury or trauma; Fall; Blunt trauma (contusions or hematomas); Additional info: Fall, head trauma TECHNIQUE: Imaging protocol: Computed tomography of the head without contrast. Radiation optimization: All CT scans at this facility use at least one of these dose optimization techniques: automated exposure control; mA and/or kV adjustment per patient size (includes targeted exams where dose is matched to clinical indication); or iterative reconstruction. COMPARISON: CT HEAD/BRAIN WO CON 10/12/2022 9:06 PM FINDINGS: Brain: There is mild enlargement of the ventricular system and cortical sulci compatible with involutional changes. No focal areas of abnormal attenuation are seen. The heller/white matter interfaces are preserved. There are no extra-axial fluid collections. The basal cisterns are patent. Cerebral ventricles: No ventriculomegaly. Paranasal sinuses: Visualized sinuses are unremarkable. No fluid levels. Mastoid air cells: Visualized mastoid air cells are well aerated. Bones: No skull fracture. Soft tissues: Unremarkable. IMPRESSION: No CT evidence of intracranial hemorrhage, mass effect, midline shift or hydrocephalus. Involutional changes.
--- NOTE | 2024-02-14 21:06 | CT_ITS ---
PROCEDURE INFORMATION: Exam: CTA Head With Contrast, Arteriography Exam date and time: 02/14/2024 10:03 PM Age: 58 years old Clinical indication: Injury or trauma; Additional info: Fall, head trauma, leaning toward right TECHNIQUE: Imaging protocol: Computed tomographic angiography of the head with contrast. Exam focused on the arteries. 3D rendering (Not supervised by radiologist): MIP and/or 3D reconstructed images were created by the technologist. Radiation optimization: All CT scans at this facility use at least one of these dose optimization techniques: automated exposure control; mA and/or kV adjustment per patient size (includes targeted exams where dose is matched to clinical indication); or iterative reconstruction. Contrast material: ISOVUE; Contrast volume: 80 ml; Contrast route: INTRAVENOUS (IV); COMPARISON: CT ANGIO HEAD 05/16/2022 5:18 PM FINDINGS: ANTERIOR CIRCULATION: Right internal carotid artery: Intracranial segment is patent with no significant stenosis. No aneurysm. Right middle cerebral artery: No occlusion or significant stenosis. No aneurysm. Right anterior cerebral artery: No occlusion or significant stenosis. No aneurysm. Left internal carotid artery: Intracranial segment is patent with no significant stenosis. No aneurysm. Left middle cerebral artery: No occlusion or significant stenosis. No aneurysm. Left anterior cerebral artery: No occlusion or significant stenosis. No aneurysm. POSTERIOR CIRCULATION: Right vertebral artery: No occlusion or significant stenosis. No aneurysm. Left vertebral artery: No occlusion or significant stenosis. No aneurysm. Basilar artery: No occlusion or significant stenosis. No aneurysm. Right posterior cerebral artery: No occlusion or significant stenosis. No aneurysm. Left posterior cerebral artery: No occlusion or significant stenosis. No aneurysm. Brain: There is mild enlargement of the ventricular system and cortical sulci compatible with involutional changes. No focal areas of abnormal attenuation are seen. The heller/white matter interfaces are preserved. There are no extra-axial fluid collections. The basal cisterns are patent. Cerebral ventricles: No ventriculomegaly. Bones/joints: Unremarkable. No acute fracture. Soft tissues: Unremarkable. IMPRESSION: No large vessel stenosis or occlusion.
--- NOTE | 2024-02-14 21:06 | CT_ITS ---
PROCEDURE INFORMATION: Exam: CTA Neck With Contrast Exam date and time: 02/14/2024 10:03 PM Age: 58 years old Clinical indication: Injury or trauma; Fall; Additional info: Fall, head trauma, leaning toward right TECHNIQUE: Imaging protocol: Computed tomographic angiography of the neck with contrast. Exam focused on the cervical segments of the vasculature. 3D rendering (Not supervised by radiologist): MIP and/or 3D reconstructed images were created by the technologist. Radiation optimization: All CT scans at this facility use at least one of these dose optimization techniques: automated exposure control; mA and/or kV adjustment per patient size (includes targeted exams where dose is matched to clinical indication); or iterative reconstruction. Contrast material: ISOVUE; Contrast volume: 80 ml; Contrast route: INTRAVENOUS (IV); COMPARISON: CT ANGIO NECK 05/16/2022 5:18 PM FINDINGS: Right common carotid artery: No stenosis. No dissection or occlusion. Right internal carotid artery: No stenosis of the extracranial segment. No dissection or occlusion. Right external carotid artery: No occlusion or stenosis of the origin. Left common carotid artery: No stenosis. No dissection or occlusion. Left internal carotid artery: No stenosis of the extracranial segment. No dissection or occlusion. Left external carotid artery: No occlusion or stenosis of the origin. Right vertebral artery: No stenosis. No dissection or occlusion. Left vertebral artery: No stenosis. No dissection or occlusion. Thyroid: Incidentally noted 2 cm hypodense nodule in the left lobe . Soft tissues: No significant soft tissue swelling. Bones/joints: No acute fracture. IMPRESSION: 1. No occlusion or hemodynamically significant stenosis of the extracranial carotid systems and vertebral arteries. 2. Incidentally noted 2 cm hypodense nodule in the left lobe of the thyroid. COMMENTS: Consistent with the [employer]'s Incidental Findings Committee white paper (J Am Mae Radiol 2015): In patients aged 35 years and older with an incidental thyroid nodule equal to or greater than 1.[address], MRI or extrathyroidal US, further evaluation with dedicated thyroid US is recommended for patients with normal life expectancy and without comorbidities. For smaller nodules without suspicious features, no further evaluation or follow up is recommended. REFERENCES: NASCET CRITERIA. The degree of stenosis in the cervical segment of the internal carotid artery is based on NASCET criteria. Normal is no stenosis. Mild is less than 50% stenosis. Moderate is 50-69% stenosis. Severe is 70% to 99% stenosis. Total occlusion is no detectable patent lumen.
[2024-02-14 21:19] LABS: Basophils # 0.1 K/mm3 (0-0.2); Basophils % 0.9 % (0.1-2.0); Eosinophils # 0.3 K/mm3 (0.0-0.4); Eosinophils % 4.5 % (0.1-12.0); Hematocrit 43.3 % (42.0-52.0); Hemoglobin 14.5 g/dL (14.1-18.0); Lymphocytes # 1.8 K/mm3 (0.7-4.5); Mean Corpuscular HGB Conc 33.4 g/dL (31.8-35.4); Mean Corpuscular Hemoglobin 30.7 pg (27.0-31.2); Mean Corpuscular Volume 91.9 fl (80-94); Mean Platelet Volume 8.6 fl (7.4-10.4); Monocytes # 0.6 K/mm3 (0.1-1.0); Monocytes % 10.4 % (1.7-9.3); Neutrophils # 3.1 K/mm3 (1.8-7.8); Neutrophils % 53.2 % (37.0-80.0); Platelet Count 190 K/mm3 (142-424); Red Blood Count 4.71 M/mm3 (4.60-6.20); Red Cell Distribution Width 13.8 % (11.5-17.5); White Blood Count 5.9 K/mm3 (4.8-10.8)
--- NOTE | 2024-02-14 21:19 | HMH.EDGENADL ---
Discharge Plan Disposition Patient Disposition: Home, Self-Care Chief Complaint: PAIN Prescriptions Prescriptions: No Action sucralfate [Carafate] 100 mg/mL suspension 10 ml PO ACHS propranolol 60 mg capsule,extended release 24 hr 60 mg PO DAILY sertraline 100 mg tablet 100 mg PO DAILY omeprazole 40 mg capsule,delayed release(DR/EC) 40 mg PO AM simvastatin 20 mg tablet 20 mg PO HS calcium carbonate [Raji-Gest Antacid] 200 mg calcium (500 mg) tablet,chewable 1,000 mg PO TIDWMEAL niacin 500 mg tablet 500 mg PO HS benztropine 2 mg tablet 2 mg PO BID divalproex 125 mg capsule, delayed rel sprinkle 500 mg PO BID clozapine 50 mg tablet 50 mg PO BID fenofibrate 120 mg Tablet 120 mg PO AM Fish Oil 1,000 mg Capsule 2,000 cap PO BID Referrals Follow up/Referrals: Edgar Rivers APRN [Primary Care Provider] - See instructions Activity Restrictions/Add. Instructions Additional Instructions/Restrictions: Call your family doctor to establish care for this visit to the emergency department and schedule follow-up within 48 hours to ensure improvement. If you have any worsening of your condition or any other concerning signs or symptoms, return to the emergency department or your primary care doctor for further evaluation. Clinical Impressions Clinical Impression: Closed head injury, Tremor Print Language Print Language: Kazakh Discharge ED Provider: Krunal Lim General Adult HPI General Chief complaint: PAIN Stated complaint: possible stroke Time Seen by Provider: 02/14/24 21:05 History of Present Illness HPI narrative: Please note that above description of symptoms, in this electronic medical record under categorization of recalled from ER triage doctor by RN are reflective of an initial nursing assessment, however, is not reflective of my full history and physical exam that was personally taken and clarified. Consequentially, this preceding description of symptoms, which may include the patient's categorized chief complaint in the EMR, do not reflect my personal clinical impression, and the ultimate description of history of present illness and patient stated complaints should be deferred to this section of the note. Unless stated otherwise or congruent with this section of the note, additional signs, symptoms, or incongruence should be interpreted as inaccurate with my clinical impression. Related Data Home Medications ?Medication ?Instructions ?Recorded ?Confirmed benztropine 2 mg tablet 2 mg PO BID Parkinson's 10/12/22 10/12/22 calcium carbonate (Raji-Gest 1,000 mg PO TIDWMEAL Supplement 10/12/22 10/12/22 Antacid) clozapine 50 mg tablet 50 mg PO BID Psych 10/12/22 10/12/22 divalproex 125 mg capsule,delayed 500 mg PO BID Seizure 10/12/22 10/12/22 release sprinkle fenofibrate 120 mg tablet 120 mg PO AM Supplement 10/12/22 10/12/22 niacin 500 mg tablet 500 mg PO HS Supplement 10/12/22 10/12/22 omega-3 fatty acids-vitamin E 2,000 cap PO BID Supplement 10/12/22 10/12/22 1,000 mg capsule omeprazole 40 mg capsule,delayed 40 mg PO AM Acid Reflux 10/12/22 10/12/22 release propranolol 60 mg capsule,24 60 mg PO DAILY Heart Rhythm 10/12/22 10/12/22 hr,extended release sertraline 100 mg tablet 100 mg PO DAILY Mood 10/12/22 10/12/22 simvastatin 20 mg tablet 20 mg PO HS High Cholesterol 10/12/22 10/12/22 sucralfate 100 mg/mL oral 10 ml PO ACHS Gatric ulcer 10/12/22 10/12/22 suspension (Carafate) Allergies Allergy/AdvReac Type Severity Reaction Status Date / Time risperidone Allergy Intermediate Rash Verified 04/24/21 09:56 [facility] Disclaimer: The information contained in this section may have been updated after the patient was seen, as this information can be updated by other users. Medical History (Updated 02/14/24 @ 22:45 by Krunal Lim MD) Falls Cataract Cataract Diabetes Tremors of nervous system Mood disorder Sinusitis Gait instability Dental caries Social History Smoking Status: Unknown if ever smoked alcohol intake: never substance use type: denies use current occupational status: disabled Travel in the last 8 weeks: None household members: other housing: [facility] caffeine: Yes Other Medical History Have you received the Flu Vaccine for this season: No Have you received the Pneumonia Vaccine: No ROS Obtained: Yes All systems reviewed & no additional complaints except as documented Physical Exam General General appearance: alert and in no apparent distress Head Head exam: atraumatic and normocephalic Eye Eye exam: Present normal appearance, PERRL and EOMI Neck Neck exam: Present normal inspection, full ROM and trachea midline Respiratory Respiratory exam: Absent respiratory distress, wheezes, stridor, accessory muscle use or prolonged expiratory phase Cardiovascular Cardiovascular exam: Present other (Pulses equal symmetric in upper and lower extremities) Abdominal Exam Abdominal exam: Present soft; Absent distention, tenderness or pulsatile mass Extremities Exam Extremities exam: Absent edema Neurological Exam Neurological exam: Present alert, oriented X3, CN II-XII intact and other (Essential tremor); Absent motor sensory deficit Skin Skin exam: Present warm and dry; Absent diaphoresis or erythema Medical Decision Making Medical Records Medical records reviewed: Yes I reviewed the patient's medical records. Screening: Per USPSTF and CDC recommendations, given the prevalence of disease in our region, it is our hospital?s policy to screen for HIV and viral Hepatitis for all patients aged 18 and over and those with ongoing risk factors. Benny Inquiry Pt receiving controlled substance: No Benny was queried for this patient: No Vital Signs: 02/14/24 21:03 02/14/24 22:28 Temperature 99.3 F Temperature Source Tympanic Pulse Rate 90 Pulse Rate [Left] 94 H Respiratory Rate 18 18 Blood Pressure [Right Arm] 149/88 H Blood Pressure Mean [Right Arm] 108 02 Sat by Pulse Oximetry 95 96 Oxygen Delivery Method Room Air Room Air Lab Data Lab Results 02/14/24 20:48: WBC 5.9, RBC 4.71, Hgb 14.5, Hct 43.3, MCV 91.9, MCH 30.7, MCHC 33.4, RDW 13.8, Plt Count 190, MPV 8.6, Neut % (Auto) 53.2, Lymph % (Auto) 31.0, Fajardo % (Auto) 10.4 H, Eos % (Auto) 4.5, Baso % (Auto) 0.9, Neut # (Auto) 3.1, Lymph # (Auto) 1.8, Fajardo # (Auto) 0.6, Eos # (Auto) 0.3, Baso # (Auto) 0.1, Sodium 137, Potassium 3.9, Chloride 100, Carbon Dioxide 26, Anion Gap 14.9, BUN 16, Creatinine 1.00, Estimated Creat Clear 123, Estimated GFR 77, Est GFR ( Amer) 93, Glucose 354 H, Calcium 9.9, Magnesium 1.3 L, Total Bilirubin 0.6, AST 53, ALT 32, Alkaline Phosphatase 89, Total Protein 7.2, Albumin 4.3, Globulin 2.9, Albumin/Globulin Ratio 1.5, TSH 4.86 H, Thyroxine (T4) 7.1 02/14/24 20:48 02/14/24 20:48 Orders (Tests/Meds): ED MEDICATIONS Generic Name Dose Route Start Last Admin Trade Name Freq PRN Reason Stop Dose Admin Magnesium Sulfate 2 gm in 50 mls @ 50 mls/hr 02/14/24 22:01 02/14/24 22:25 Magnesium Sulfate 2gm/50ml Premix IV 02/14/24 23:00 50 mls/hr ONCE ONE Administration Discontinued Medications Generic Name Dose Route Start Last Admin Trade Name Freq PRN Reason Stop Dose Admin Iopamidol 80 ml 02/14/24 22:01 02/14/24 22:03 Iopamidol-370 (76%);100ml Bottle IV 02/14/24 22:02 80 ml ONCE ONE Administration Magnesium Oxide 800 mg 02/14/24 22:01 02/14/24 22:24 Magnesium Oxide 400mg Tablet PO 02/14/24 22:02 800 mg ONCE ONE Administration Sodium Chloride 10 ml 02/14/24 22:01 02/14/24 22:03 Sodium Chloride 0.9% 10ml Syr (Rad Only) IV 02/14/24 22:02 10 ml ONCE ONE Administration Sodium Chloride 50 ml 02/14/24 22:01 02/14/24 22:03 0.9 % Sodium Chloride 50 Ml Vial IV 02/14/24 22:02 50 ml ONCE ONE Administration ORDERS Category Date Time Status CT angio head Stat Cat Scan 02/14/24 21:[address] angio neck Stat Cat Scan 02/14/24 21:[address] head/brain wo con Stat Cat Scan 02/14/24 21:06 Completed Complete Blood Count Auto Diff Stat Lab 02/14/24 20:48 Completed Comprehensive Metabolic Panel Stat Lab 02/14/24 20:48 Completed Magnesium Stat Lab 02/14/24 20:48 Completed T4 (Thyroxine) Stat Lab 02/14/24 20:48 Completed TSH [Thyroid Stimulating Hormone] Stat Lab 02/14/24 20:48 Completed Medical Decision Narrative: 58-year-old male history of hypertension, hyperlipidemia, diabetes, essential tremor, seizure disorder presenting with fall and head pain. Patient states that he fell about 2 days prior to this. States that his essential tremor feels that its gotten worse since that time. No neck pain, vision changes, chest pain, shortness of breath, nausea or vomiting. States that he feels like he has been leaning more to the side, but unsure. Able to ambulate with his walker without issue. States that he has had headache in the crown of his head since the fall. Came in for further evaluation. History obtained the patient and EMS. On arrival, very well-appearing. Patient's with tremor, but no acute traumatic findings in the head or neck. Neurologically at baseline, from my understanding. Cardiac exam within normal limits, no murmurs gallops rubs. Differential includes benign head trauma, intracranial hemorrhage, metabolic abnormality, endocrinologic abnormality, CVA, among others. Independent interpretation of workup demonstrates no acute abnormalities on CBC. Chemistry nonactionable, however patient's magnesium is low at 1.3. This was repleted IV and p.o. Thyroid studies nonactionable. Independent interpretation of CT head without intracranial hemorrhage. CTA head and neck without acute vascular abnormality. Because patient at baseline without signs or symptoms of clinical decompensation, deemed appropriate for discharge. Results were relayed to patient who voiced understanding and were agreeable to outpatient management and follow up. I discussed my clinical impression with patient and answered all questions. At this time, the evidence for any other entities in the differential is insufficient to warrant any further testing or ED observation. This was explained as well. Advisory was given that persistent or worsening symptoms require further evaluation. I confirmed the understanding of this discussion. Family Development Specialist disclaimer Much of this encounter note is an electronic hydrotreater operator spoken language to printed text. Electronic hydrotreater operator of the spoken language may permit errors. Although I have reviewed the note, some errors may still exist. Critical Care Critical Care Time Critical Care Time: No
[2024-02-14 21:27] LABS: Alanine Aminotransferase 32 U/L (12-78); Albumin Level 4.3 g/dl (3.5-5.0); Albumin/Globulin Ratio 1.5 (1.1-1.8); Alkaline Phosphatase 89 U/L (38-126); Anion Gap 14.9 mEq/L (5-15); Aspartate Amino Transferase 53 U/L (17-59); Bilirubin,Total 0.6 mg/dl (0.2-1.3); Blood Urea Nitrogen 16 mg/dl (9-20); Calcium 9.9 mg/dl (8.4-10.2); Carbon Dioxide 26 mmol/L (22.0-30.0); Chloride 100 mmol/L (98-107); Creatinine Clearance Estimated 123 mL/min (50-200); Estimated Glomerular Filt Rate 77 ml/min (>60); GFR (African American) 93 ML/MIN (>60); Globulin 2.9 g/dL (1.3-3.2); Glucose 354 mg/dl (74-100); Magnesium 1.3 mg/dl (1.6-2.3); Potassium 3.9 mmoL/L (3.5-5.1); Sodium 137 mmol/L (136-145); Total Protein,Serum 7.2 g/dl (6.3-8.2)
[2024-02-14 21:44] LABS: T4 (Thyroxine) 7.1 ug/dl (5.53-11.0)
[2024-02-14 21:58] LABS: Thyroid Stimulating Hormone 4.86 uIU/mL (0.465-4.68)
[2024-02-14] MEDS: SODIUM CHLORIDE 0.9% 10ML SYR (RAD ONLY) 10 ML IV (22:03)
[2024-02-14] MEDS: IOPAMIDOL-370 (76%);100ML BOTTLE 80 ML IV (22:03)
[2024-02-14] MEDS: 0.9 % SODIUM CHLORIDE 50 ML VIAL IV (22:03)
[2024-02-14] MEDS: MAGNESIUM OXIDE 400MG TABLET 800 MG PO (22:24)
[2024-02-14] MEDS: MAGNESIUM SULFATE IN WATER 2 GM/50 ML PIGGYBACK IV (22:25)
[2024-02-14 22:28] VITALS: PULSE 90; RESP 18; O2SAT 96
[2024-02-14 22:45] VITALS: BP 167/93; PULSE 86; RESP 20; TEMP 36.9; O2SAT 96
== END 2024-02-14 22:57 | disposition home or self-care (01) ==
PROVIDERS: Emergency Provider Emergency Medicine; PCP Nurse Practitioner
DX: S09.90XA Unspecified injury of head, initial encounter (principal); R25.1 Tremor, unspecified; R51.9 Headache, unspecified; W19.XXXA Unspecified fall, initial encounter; Y93.9 Activity, unspecified; Y92.9 Unspecified place or not applicable
CPT/HCPCS: 70450; 70496; 70498; 80050; 80053; 83735; 84436; 84443; 85025; 96365; 99285; J3475; Q9967

== ENCOUNTER 2024-02-17 11:11 | Outpatient (CLI) | payer MEDICAID, SELFPAY ==
[2024-02-17 11:37] LABS: Basophils % 0.8 % (0.1-2.0); Eosinophils # 0.2 K/mm3 (0.0-0.4); Eosinophils % 3.5 % (0.1-12.0); Hematocrit 38.8 % (42.0-52.0); Hemoglobin 13.4 g/dL (14.1-18.0); Lymphocytes # 1.3 K/mm3 (0.7-4.5); Lymphocytes % 25.9 % (10-50); Mean Corpuscular HGB Conc 34.5 g/dL (31.8-35.4); Mean Corpuscular Hemoglobin 33.7 pg (27.0-31.2); Mean Corpuscular Volume 97.5 fl (80-94); Mean Platelet Volume 9.5 fl (7.4-10.4); Monocytes # 0.4 K/mm3 (0.1-1.0); Monocytes % 8.2 % (1.7-9.3); Neutrophils % 61.5 % (37.0-80.0); Platelet Count 150 K/mm3 (142-424); Red Blood Count 3.98 M/mm3 (4.60-6.20); Red Cell Distribution Width 13.6 % (11.5-17.5); White Blood Count 4.9 K/mm3 (4.8-10.8)
--- OUTSIDE RECORDS SUMMARY | 2024-02-22 10:18 | XMS_ITS | Encounter Summary ---
Author Organization [facility] Address [address] [place] [address] Care Team Providers Care Back Shoe Operator Name Role Phone Unavailable Primary Care Provider Unavailabl e Encounter Details Date Type Department Care Team (Late st Contact Info) Description 01/03/2015 [facility] Vitals Encounter [facility] [address] [place] [address] Provider, MD Sumanth [address] [place] [id number] Social History Tobacco Use Types Packs/Day Years Used Date Smoking Tobacco: Never Assessed Sex and Gender Information Value Date Recorded Sex Assigned at Not on file Legal Sex Male 7:45 PM EDT Gender Identity Not on file Sexual Orientation Not on file documented as of this encounter Last Filed Vital Signs Vital Sign Reading Time Taken Comments Blood Pressure - - Pulse - - Temperature - - Respiratory Rate - - Oxygen Saturation - - Inhaled Oxygen Concentration - - Weight 85.4 kg (188 lb 4 oz) 01/03/2015 10:13 AM EDT Height 175.3 cm (5' 9 ) 01/03/2015 10:13 AM EDT Body Mass Index 27.8 01/03/2015 10:13 AM EDT documented in this encounter Plan of Treatment Not on file documented as of this encounter Visit Diagnoses Not on filedocumented in this encounter
--- OUTSIDE RECORDS SUMMARY | 2024-02-22 10:18 | XMS_ITS | Encounter Summary ---
Author Organization [facility] Address [address] [place] [address] Care Team Providers Care Miner Assistant Name Role Phone Unavailable Primary Care Provider Unavailabl e Encounter Details Date Type Department Care Team (Late st Contact Info) Description 01/09/2016 [facility] Vitals Encounter [facility] [address] [place] [address] Provider, MD Sumanth [address] [place] [id number] Social History Tobacco Use Types Packs/Day [...] - Inhaled Oxygen Concentration - - Weight 81.9 kg (180 lb 7.9 oz) 01/09/2016 11:35 AM EDT Height - - Body Mass Index 26.65 01/03/2015 10:13 AM EDT documented in this encounter Plan of Treatment Not on file documented as of this encounter Visit Diagnoses Not on filedocumented in this encounter
--- OUTSIDE RECORDS SUMMARY | 2024-02-22 10:18 | XMS_ITS | Clinical Summary ---
Author Organization [facility] Address [address] [place] [address] Care Team Providers Care Lithographic Printing Machinist Name Role Phone Unavailable Primary Care Provider Unavailabl e Family History Medical History Relation Name Comments Diabetes Maternal Grandfather Lung cancer Maternal Grandfather Stroke Maternal Grandfather Diabetes Maternal Grandmother Arthritis Mother Diabetes Mother Diabetes Other 1 Hypertension Other 2 Lung cancer Other 3 Hyperlipidemia Other 4 Relation Name Status Comments Maternal Grandfather Maternal Grandmother Mother Other 1 Other 2 Other 3 Other 4 Social History Tobacco Use Types Packs/Day Years Used Date Smoking Tobacco: Never Alcohol Use Standard Drinks/Week Comments No 0 (1 standard drink = 0.6 oz pur e alcohol) Sex and Gender Information Value Date Recorded Sex Assigned at Not on file Legal Sex Male 7:45 PM EDT Gender Identity Not on file Sexual Orientation Not on file Last Filed Vital Signs Vital Sign Reading Time Taken Comments Blood Pressure - - Pulse - - Temperature - - Respiratory Rate - - Oxygen Saturation - - Inhaled Oxygen Concentration - - Weight 81.9 kg (180 lb 7.9 oz) 01/09/2016 11:35 AM EDT Height 175.3 cm (5' 9 ) 01/03/2015 10:13 AM EDT Body Mass Index 26.65 01/03/2015 10:13 AM EDT Plan of Treatment Not on file
--- OUTSIDE RECORDS SUMMARY | 2024-02-22 10:18 | XMS_ITS | Encounter Summary ---
Author Organization [facility] Address [address] [place] [address] Care Team Providers Care Facing Cutting Machine Operator Name Role Phone Unavailable Primary Care Provider Unavailabl e Encounter Details Date Type Department Care Team (Late st Contact Info) Description 04/23/2015 [facility] Vitals Encounter [facility] [address] [place] [address] Provider, MD Sumanth [address] [place] [id number] Social History Tobacco Use Types Packs/Day [...] - Inhaled Oxygen Concentration - - Weight 86 kg (189 lb 8.8 oz) 04/23/2015 1:10 PM EST Height - - Body Mass Index 27.99 01/03/2015 10:13 AM EDT documented in this encounter Plan of Treatment Not on file documented as of this encounter Visit Diagnoses Not on filedocumented in this encounter
--- OUTSIDE RECORDS SUMMARY | 2024-02-22 10:18 | XMS_ITS | Clinical Summary ---
Author Organization [facility] Address [address] [address] Care Team Providers Care Professor Of Physics Name Role Phone Unavailable Primary Care Provider Unavailabl e Medications * This document contains information received from the source organization and may not represent a complete record from that organization. 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 08/03/2023 MDD (major depressive disorder), recurrent episo de, mild 08/03/2023 Undifferentiated schizophrenia 03/29/2015 Resolved Problems Problem Noted Date Diagnosed Date Resolved Date Socially inappropriate behavior 02/28/2021 08/30/2023 Hallucinations 09/01/2016 08/30/2023 Recurrent depressive disorde r, current episode mild 06/18/2015 08/30/2023 Agitation 06/18/2015 08/30/2023 Medication monitoring encounter 06/18/2015 08/30/2023 Major depressive disorder, r ecurrent, in remission 03/29/2015 08/30/2023 Social History Tobacco Use Types Packs/Day Years Used Date Smoking Tobacco: Never Assessed Sex and Gender Information Value Date Recorded Sex Assigned at Not on file Legal Sex Male 12:35 AM EDT Gender Identity Not on file Sexual Orientation Not on file Obstetrics History Plan of Treatment Health Maintenance Due Date Last Done Comments Annual Wellness Exam 1968 DTaP/TDaP/Td (1 - Tdap) 1985 Hepatitis B Vaccine (1 of 3 - 19+ 3-dose series) 1985 Cologuard 10/17/2011 Colon Cancer Screening 10/17/2011 Colonoscopy 10/17/2011 FIT 10/17/2011 Sigmoidoscopy 10/17/2011 Virtual Colonography 10/17/2011 Zoster (1 of 2) 2016 COVID-19 Vaccine ( - 2023-2 5 season) 2023 Influenza Vaccine (#1) 2023 Pneumococcal Vaccine 0-64 Aged Out No longer eligible based on patient's age to complete this topic Insurance [facility] [address]
--- OUTSIDE RECORDS SUMMARY | 2024-02-22 10:18 | XMS_ITS | Referral Summary ---
Author Organization [facility] Address [address] [facility] [place] [address] [address] Care Team Providers Care Tin Plater Name Role Phone Unavailable Primary Care Provider [...] on file Sexual Orientation Not on file Plan of Treatment Not on file Insurance [facility] [id number] [facility]
[2024-02-24 10:10] LABS: Clobazam < 10 ng/mL (30-300)
== END 2024-02-17 23:59 | disposition home or self-care (01) ==
LOC: LAB 11:13
PROVIDERS: PCP Emergency Medicine; Visit Provider Nurse Practitioner
DX: Z79.899 Other long term (current) drug therapy (principal)
CPT/HCPCS: 36415; 80299; 85025

== ENCOUNTER 2024-04-12 10:45 | Outpatient (CLI) | payer MEDICAID, SELFPAY ==
[2024-04-12 11:02] LABS: Basophils % 0.7 % (0.1-2.0); Eosinophils # 0.2 K/mm3 (0.0-0.4); Eosinophils % 3.2 % (0.1-12.0); Hematocrit 43.6 % (42.0-52.0); Hemoglobin 14.8 g/dL (14.1-18.0); Lymphocytes # 1.7 K/mm3 (0.7-4.5); Lymphocytes % 31.2 % (10-50); Mean Corpuscular HGB Conc 33.9 g/dL (31.8-35.4); Mean Corpuscular Hemoglobin 30.2 pg (27.0-31.2); Mean Platelet Volume 10.2 fl (7.4-10.4); Monocytes # 0.5 K/mm3 (0.1-1.0); Monocytes % 9.3 % (1.7-9.3); Neutrophils # 3.1 K/mm3 (1.8-7.8); Neutrophils % 55.1 % (37.0-80.0); Platelet Count 296 K/mm3 (142-424); Red Cell Distribution Width 12.9 % (11.5-17.5); White Blood Count 5.6 K/mm3 (4.8-10.8)
== END 2024-04-12 23:59 | disposition home or self-care (01) ==
LOC: LAB 10:46
PROVIDERS: PCP Nurse Practitioner Acute Care; Visit Provider Nurse Practitioner
DX: Z79.899 Other long term (current) drug therapy (principal)
CPT/HCPCS: 36415; 85025

== ENCOUNTER 2024-11-28 16:54 | Emergency (ER) | payer MEDICAID, SELFPAY ==
[2024-11-28 16:58] VITALS: BP 170/110; PULSE 74; RESP 19; TEMP 36.7; O2SAT 98; BMI 26.2
--- NOTE | 2024-11-28 17:02 | XR_ITS ---
PROCEDURE INFORMATION: Exam: XR Chest Exam date and time: 11/28/2024 5:26 PM Age: 59 years old Clinical indication: Other: Hyperglycemia TECHNIQUE: Imaging protocol: Radiologic exam of the chest. Views: 1 view. COMPARISON: CR XR CHEST PORTABLE 10/12/2022 8:57 PM FINDINGS: Lungs: Mild scarring and atelectasis in the lower lungs. Stigmata of old granulomatous disease. Pleural spaces: Unremarkable. No pleural effusion. No pneumothorax. Heart/Mediastinum: Unremarkable. No cardiomegaly. Vasculature: Vascular calcifications. Bones/joints: Unremarkable. IMPRESSION: No acute findings.
--- NOTE | 2024-11-28 17:02 | CT_ITS ---
PROCEDURE INFORMATION: Exam: CT Head Without Contrast Exam date and time: 11/28/2024 5:26 PM Age: 59 years old Clinical indication: Other: Headaches, HTN TECHNIQUE: Imaging protocol: Computed tomography of the head without contrast. Radiation optimization: All CT scans at this facility use at least one of these dose optimization techniques: automated exposure control; mA and/or kV adjustment per patient size (includes targeted exams where dose is matched to clinical indication); or iterative reconstruction. COMPARISON: CT ANGIO HEAD 02/14/2024 10:03 PM FINDINGS: Brain: Mild chronic brain volume loss and chronic small vessel ischemic changes. Cerebral ventricles: No ventriculomegaly. Paranasal sinuses: Mild mucosal thickening in the paranasal sinuses. Mastoid air cells: Visualized mastoid air cells are well aerated. Orbital cavities: Status post bilateral cataract surgery. Bones: Unremarkable. No acute fracture. Soft tissues: Unremarkable. IMPRESSION: No acute intracranial findings.
--- OUTSIDE RECORDS SUMMARY | 2024-11-28 17:05 | XMS_ITS | Clinical Summary ---
Author Organization [facility] Address [address] [address] Care Team Providers Care Accident Examiner Name Role Phone Unavailable Primary Care Provider [...] Date Last Done Comments Annual Wellness Exam 1969 DTaP/TDaP/Td (1 - Tdap) 1985 Hepatitis B Vaccine (1 of 3 - 19+ 3-dose series) 1985 Cologuard 10/17/2011 Colon Cancer Screening 10/17/2011 Colonoscopy 10/17/2011 FIT 10/17/2011 Sigmoidoscopy 10/17/2011 Virtual Colonography 10/17/2011 Pneumococcal Vaccine 50+ (1 of 1 - PCV) 2016 Zoster (1 of 2) 2016 COVID-19 Vaccine (1 - 2023-2 5 season) 2024 Influenza Vaccine (#1) 2024 Meningococcal B Vaccine Aged Out No l onger eligible based on patient's age to complete this topic Insurance [facility] [address] [place] [address]
--- OUTSIDE RECORDS SUMMARY | 2024-11-28 17:05 | XMS_ITS | Clinical Summary ---
Author Organization [facility] Address [address] [place] [address] Care Team Providers Care Ear Nose Throat Surgeon Name Role Phone Unavailable Primary Care Provider [...]
--- NOTE | 2024-11-28 17:06 | HMH.EDGENADL ---
Discharge Plan Disposition Patient Disposition: Home, Self-Care Condition: Good Prescriptions Prescriptions: No Action sucralfate [Carafate] 100 mg/mL suspension 10 ml PO ACHS propranolol 60 mg capsule,extended release 24 hr 60 mg PO DAILY sertraline 100 mg tablet 100 mg PO DAILY omeprazole 40 mg capsule,delayed release(DR/EC) 40 mg PO AM simvastatin 20 mg tablet 20 mg PO HS calcium carbonate [Raji-Gest Antacid] 200 mg calcium (500 mg) tablet,chewable 1,000 mg PO TIDWMEAL niacin 500 mg tablet 500 mg PO HS benztropine 2 mg tablet 2 mg PO BID divalproex 125 mg capsule, delayed rel sprinkle 500 mg PO BID clozapine 50 mg tablet 50 mg PO BID fenofibrate 120 mg Tablet 120 mg PO AM Fish Oil 1,000 mg Capsule 2,000 cap PO BID Activity Restrictions/Add. Instructions Additional Instructions/Restrictions: You do have a high hemoglobin A1c (which is a marker for your diabertes) and your blood sugar was high here in the emergency department. You likely need to have a medication adjustment with your primary care provider. Please call them and let them know that you are here in the emergency department for high blood sugars and continue taking your medications as prescribed. Clinical Impressions Clinical Impression: Hyperglycemia Instructions Patient Instructions: DI for Hyperglycemia -- Adult Print Language Print Language: Uzbek Discharge ED Provider: Melvi Sanches Adult HPI General Chief complaint: Hyper/Hypoglycemia Stated complaint: Diabetic Time Seen by Provider: 11/28/24 16:58 History of Present Illness HPI narrative: Patient is a 59-year-old male with a past medical history of psychiatric disorders on clozapine and a history of diabetes on metformin who [facility] Patient states that he has been taking metformin and they have been checking his blood sugars and today it was more than 600 which is what brought him here to the emergency department. Patient states that he does not frequently check his blood sugars. Patient states that his diabetic medication was recently increased. Patient denies any chest pain, shortness of breath abdominal pain nausea vomiting or diarrhea. Patient does report some intermittent headaches. Patient states that he has had no other changes in his medications. Related Data Home Medications ?Medication ?Instructions ?Recorded ?Confirmed benztropine 2 mg tablet 2 mg PO BID Parkinson's 10/12/22 10/12/22 calcium carbonate (Raji-Gest 1,000 mg PO TIDWMEAL Supplement 10/12/22 10/12/22 Antacid) clozapine 50 mg tablet 50 mg PO BID Psych 10/12/22 10/12/22 divalproex 125 mg capsule,delayed 500 mg PO BID Seizure 10/12/22 10/12/22 release sprinkle fenofibrate 120 mg tablet 120 mg PO AM Supplement 10/12/22 10/12/22 niacin 500 mg tablet 500 mg PO HS Supplement 10/12/22 10/12/22 omega-3 fatty acids-vitamin E 2,000 cap PO BID Supplement 10/12/22 10/12/22 1,000 mg capsule omeprazole 40 mg capsule,delayed 40 mg PO AM Acid Reflux 10/12/22 10/12/22 release propranolol 60 mg capsule,24 60 mg PO DAILY Heart Rhythm 10/12/22 10/12/22 hr,extended release sertraline 100 mg tablet 100 mg PO DAILY Mood 10/12/22 10/12/22 simvastatin 20 mg tablet 20 mg PO HS High Cholesterol 10/12/22 10/12/22 sucralfate 100 mg/mL oral 10 ml PO ACHS Gatric ulcer 10/12/22 10/12/22 suspension (Carafate) Allergies Allergy/AdvReac Type Severity Reaction Status Date / Time risperidone Allergy Intermediate Rash Verified 04/24/21 09:56 [facility] Disclaimer: The information contained in this section may have been updated after the patient was seen, as this information can be updated by other users. Medical History (Updated 11/28/24 @ 20:09 by Melvi Sanches DO) Falls Cataract Cataract Diabetes Tremors of nervous system Mood disorder Sinusitis Gait instability Dental caries Social History Smoking Status: Current every day smoker tobacco type: cigarettes alcohol intake: never substance use type: denies use current occupational status: disabled Travel in the last 8 weeks?: None household members: other housing: [facility] caffeine: Yes Have you lived/traveled outside [place] in past 30 days?: No Contact w/someone who lives/traveled outside US past 30 days?: No Exposure to someone with infectious disease in past 14 days?: No Do you have a fever (greater than 100.4 F or 38 C)?: No Have you tested positive for COVID-19?: No Exposed to someone with COVID-19 in past 14 days?: No Do you have a sore throat?: No Do you have a cough?: No Do you have any weakness?: No Do you have any diarrhea?: No Are you experiencing any unusual bleeding?: No Do you have any muscle aches/pain?: No Do you have any abdominal pain?: No Are you experiencing loss of taste or smell?: No Other Medical History Have you received the Flu Vaccine for this season: No Have you received the Pneumonia Vaccine: No ROS Obtained: Yes All systems reviewed & no additional complaints except as documented and Yes Systems reviewed as appropriate & no additional complaints except as documented Physical Exam General General appearance: alert and in no apparent distress Head Head exam: atraumatic, normocephalic and normal inspection Eye Eye exam: Present normal appearance, PERRL and EOMI; Absent scleral icterus ENT ENT exam: Present normal exam and normal external ear exam Neck Neck exam: Present normal inspection and full ROM Chest Chest inspection: Present normal inspection and symmetric chest wall rise Respiratory Respiratory exam: Present normal lung sounds bilaterally; Absent respiratory distress or wheezes Cardiovascular Cardiovascular exam: Present regular rate, normal rhythm and normal heart sounds Abdominal Exam Abdominal exam: Present soft and distention; Absent tenderness, guarding or rebound Extremities Exam Extremities exam: Present normal inspection and full ROM Back Exam Back exam: Present normal inspection and full ROM Neurological Exam Neurological exam: Present alert, oriented X3, CN II-XII intact, normal gait and reflexes normal; Absent motor sensory deficit Psychiatric Psychiatric exam: Present normal affect and normal mood Skin Skin exam: Present warm and dry Medical Decision Making Medical Records Medical records reviewed: Yes I reviewed the patient's medical records. Screening: Per USPSTF and CDC recommendations, given the prevalence of disease in our region, it is our hospital?s policy to screen for HIV and viral Hepatitis for all patients aged 18 and over and those with ongoing risk factors. Benny Inquiry Pt receiving controlled substance: No Vital Signs: 11/28/24 16:58 11/28/24 17:35 11/28/24 19:19 Temperature 98.1 F Temperature Source Oral Pulse Rate 76 69 Pulse Rate [Left Radial] 74 Respiratory Rate 19 22 Blood Pressure 157/91 H 168/102 H Blood Pressure [Right Arm] 170/110 H Blood Pressure Mean [Right Arm] 130 Blood Pressure Source Blood Pressure Position 02 Sat by Pulse Oximetry 98 97 87 L Oxygen Delivery Method 11/28/24 20:23 Temperature 98.4 F Temperature Source Oral Pulse Rate 63 Pulse Rate [Left Radial] Respiratory Rate 14 Blood Pressure 163/95 H Blood Pressure [Right Arm] Blood Pressure Mean [Right Arm] Blood Pressure Source Automatic Cuff Blood Pressure Position Sitting 02 Sat by Pulse Oximetry Oxygen Delivery Method Room Air Lab Data Lab results reviewed: Yes I reviewed the patient's lab results. Lab Results 11/28/24 17:12: WBC 6.9, RBC 4.49 L, Hgb 13.3 L, Hct 39.0 L, MCV 86.9, MCH 29.6, MCHC 34.1, RDW 12.2, Plt Count 267, MPV 11.6 H, Neut % (Auto) 51.3, Lymph % (Auto) 37.6, [place] % (Auto) 7.1, Eos % (Auto) 3.0, Baso % (Auto) 0.9, Neut # (Auto) 3.6, Lymph # (Auto) 2.6, [place] # (Auto) 0.5, Eos # (Auto) 0.2, Baso # (Auto) 0.1, VBG pH 7.44 H, VBG pCO2 40.7, VBG pO2 48.1 H, VBG HCO3 26.9, VBG Total CO2 28.1 H, VBG O2 Saturation 83.9 H, VBG Base Excess 2.7 H, VBG Lactic Acid 2.2 H, Sodium 133 L, Potassium 4.7, Chloride 99, Carbon Dioxide 25, Anion Gap 13.7, BUN 10, Creatinine 0.70, Estimated Creat Clear 142, Estimated GFR 116, Est GFR ( Amer) 140, Glucose 459 H*, Hemoglobin A1c 13.0 H, Calcium 8.7, Magnesium 1.5 L, Total Bilirubin 0.8, AST 48, ALT 22, Alkaline Phosphatase 82, NT-Pro-B Natriuret Pep 64.2, Total Protein 7.2, Albumin 4.0, Globulin 3.2, Albumin/Globulin Ratio 1.3, HCV Ab NAILA w/Rflx PCR Qn Negative, HIV Ag/Ab Combo Qual Negative 11/28/24 18:37: Urine Color Yellow, Urine Appearance Clear, Urine pH 7.5, Ur Specific [place] 1.010, Urine Protein Negative, Urine Glucose (UA) 3+, Urine Ketones Negative, Urine Blood Negative, Urine Nitrate Negative, Urine Bilirubin Negative, Urine Urobilinogen 0.2, Ur Leukocyte Esterase Negative, Urine RBC Occasional, Urine WBC Occasional 11/28/24 17:12 11/28/24 17:12 Orders (Tests/Meds): ED MEDICATIONS Discontinued Medications Generic Name Dose Route Start Last Admin Trade Name Freq PRN Reason Stop Dose Admin Sodium Chloride 1,000 mls @ 999 mls/hr 11/28/24 17:02 11/28/24 20:26 Sod Chlor 0.9% 1000ml Bag IV 11/28/24 18:02 Infused .Q1H1M ONE Infusion Sodium Chloride 1,000 mls @ 999 mls/hr 11/28/24 18:04 11/28/24 19:46 Sod Chlor 0.9% 1000ml Bag IV 11/28/24 19:04 Infused .Q1H1M ONE Infusion Magnesium Oxide 400 mg 11/28/24 17:59 11/28/24 18:46 Magnesium Oxide 400mg Tablet PO 11/28/24 18:00 400 mg ONCE ONE Administration ORDERS Category Date Time Status CT head/brain wo con Stat Cat Scan 11/28/24 17:02 Completed CXR --portable [XR chest portable] Stat Exams 11/28/24 17:02 Completed BNP [NT Pro Brain Natriuretic Pep.] Stat Lab 11/28/24 17:12 Completed CBC w/Auto Diff [Complete Blood Count Auto Diff] Stat Lab 11/28/24 17:12 Completed CMP [Comprehensive Metabolic Panel] Stat Lab 11/28/24 17:12 Completed HIV Combo Stat Lab 11/28/24 17:12 Completed Hemoglobin A1C Stat Lab 11/28/24 17:12 Completed Hepatitis C Ab Qual. W/ RFX Stat Lab 11/28/24 17:12 Completed MAG [Magnesium] Stat Lab 11/28/24 17:12 Completed UA [Urinalysis and Microscopic] Stat Lab 11/28/24 18:37 Completed Urine Culture Stat Micro 11/28/24 18:37 Completed VBG [Venous Blood Gas] Stat RT 11/28/24 17:12 Completed Medical Decision Narrative: Patient is an otherwise healthy 59-year-old male who presented to the emergency department with hyperglycemia from his residential living facility. States that he has a history of diabetes, takes metformin and his diabetic medications were recently increased. Patient has has no other complaints at this time. On arrival, patient was mildly hypertensive but vital signs were otherwise unremarkable. Differential includes but not limited to: Hyperglycemia, uncontrolled diabetes, HHS, DKA, dehydration, pneumonia, urinary tract infection, intracranial pathology, amongst others. Patient's labs were reviewed and interpreted by myself: CBC showed no leukocytosis, hemoglobin was stable. CMP had pseudohyponatremia of 133, elevated blood sugar of 459. Magnesium slightly low at 1.5. There is no elevated anion gap. BNP was unremarkable. VBG with no acidosis. CT head was reviewed and interpreted by myself and showed no acute intracranial pathology. Was given 2 L of IV fluids with plan to repeat blood sugar. Patient's repeat blood pressure appropriately downtrended. Given no evidence of anion gap acidosis or significant dehydration I felt the patient was appropriate for discharge. Patient's magnesium was replaced. Patient already follows with a doctor who assists with their diabetes. Patient's metformin was increased today. Patient was advised to follow-up with the primary care provider and patient was otherwise discharged home in stable condition. Critical Care Critical Care Time Critical Care Time: No
[2024-11-28 17:25] LABS: VBG HCO3 26.9 mmol/L (23-30); VBG PCO2 40.7 mmol/L (35-51); VBG PH 7.44 mmol/L (7.31-7.41); VBG PO2 48.1 mmol/L (28-40)
[2024-11-28 17:26] LABS: Lactate Venous 2.2 mmol/L (0.4-2.0)
[2024-11-28 17:33] LABS: Hematocrit 39.0 % (42.0-52.0); Hemoglobin 13.3 g/dL (14.1-18.0); Immature Granulocytes % 0.1 %; Mean Corpuscular HGB Conc 34.1 g/dL (31.8-35.4); Mean Corpuscular Hemoglobin 29.6 pg (27.0-31.2); Mean Corpuscular Volume 86.9 fl (80-94); Nucleated Red Blood Cells % 0 %; Platelet Count 267 K/mm3 (142-424); Red Blood Count 4.49 M/mm3 (4.60-6.20); Red Cell Distribution Width-SD 39.1 fL; White Blood Count 6.9 K/mm3 (4.8-10.8)
[2024-11-28] MEDS: 0.9 % SODIUM CHLORIDE 1000ML 1,000 ML 999 ML IV ×2 (17:33→18:45)
[2024-11-28 17:35] VITALS: BP 157/91; PULSE 76; RESP 22; O2SAT 97
[2024-11-28 17:45] LABS: Albumin Level 4.0 g/dl (3.5-5.0); Chloride 99 mmol/L (98-107); Potassium 4.7 mmoL/L (3.5-5.1); Sodium 133 mmol/L (136-145)
[2024-11-28 17:47] LABS: Blood Urea Nitrogen 10 mg/dl (9-20); Creatinine Clearance Estimated 142 mL/min (50-200); Creatinine,Serum 0.70 mg/dl (0.66-1.25); Estimated Glomerular Filt Rate 116 ml/min (>60); GFR (African American) 140 ML/MIN (>60)
[2024-11-28 17:48] LABS: Alanine Aminotransferase 22 U/L (12-78); Albumin/Globulin Ratio 1.3 (1.1-1.8); Alkaline Phosphatase 82 U/L (38-126); Anion Gap 13.7 mEq/L (5-15); Aspartate Amino Transferase 48 U/L (17-59); Bilirubin,Total 0.8 mg/dl (0.2-1.3); Calcium 8.7 mg/dl (8.4-10.2); Carbon Dioxide 25 mmol/L (22.0-30.0); Globulin 3.2 g/dL (1.3-3.2); Magnesium 1.5 mg/dl (1.6-2.3); Total Protein,Serum 7.2 g/dl (6.3-8.2)
[2024-11-28 17:56] LABS: Glucose 459 mg/dl (74-100)
[2024-11-28 18:37] LABS: Hepatitis C Ab Qual. W/ RFX NEGATIVE (Negative)
[2024-11-28 18:41] LABS: NT Pro Brain Natriuretic Pep. 64.2 pg/mL (0-125)
[2024-11-28] MEDS: MAGNESIUM OXIDE 400MG TABLET 400 MG PO (18:46)
--- NOTE | 2024-11-28 18:54 | PC.NURSE ---
glucose 404
[2024-11-28 18:55] LABS: Microscopic, Urine URINE MICROSCOPIC (MICROSCOPIC)
[2024-11-28 19:09] LABS: Bilirubin,Urine Negative (Negative); Color,Urine YELLOW (Yellow); Glucose,Urine (UA) 3+ (Negative); Ketones,Urine Negative (Negative); Leukocyte Esterase,Urine Negative (Negative); PH,Urine 7.5 (5.0-8.5); Protein,Urine Negative (Negative); Specific Gravity, Urine 1.010 (1.005-1.030); Urobilinogen,Urine 0.2 EU/dl (0.2)
[2024-11-28 19:19] VITALS: BP 168/102; PULSE 69; O2SAT 87
--- NOTE | 2024-11-28 19:26 | PC.NURSE ---
[facility] staff called to get info about patient. They were informed the patient would be discharged soon and would need a ride back to their facility. Staff stated they were unable to come get the patient due to not having a company car, and that they are no longer able to get patients in their personal car due to liability.
[2024-11-28 19:32] LABS: Hemoglobin A1C 13.0 % (4.0-6.0)
[2024-11-28 19:49] LABS: RBC,Urine Occasional #/hpf (0-3); WBC,Urine Occasional #/hpf (0-3)
--- NOTE | 2024-11-28 20:11 | PC.NURSE ---
finger stick glucose 385 @ 2010. RN and dr montoya
[2024-11-28 20:23] VITALS: BP 163/95; PULSE 63; RESP 14; TEMP 36.9; O2SAT 97
--- NOTE | 2024-11-28 20:31 | PC.NURSE ---
Attempted to call [facility] (Anne Marie) to verify transportation for this pt as [facility] states no one there can pharmacy picking technician the pt. I did not get an answer when I called [facility]. Pt will be transported back to [facility] via Kell (barrel assembly inspector) & Nell[facility]barrel assembly inspector[facility]
--- NOTE | 2024-11-28 20:34 | PC.NURSE ---
Called report to B[facility].
[2024-11-28 21:27] LABS: Reflex Lactic Add Lactic Reflex
== END 2024-11-28 20:40 | disposition home or self-care (01) ==
PROVIDERS: Emergency Provider Student in an Organized Health Care Education/Training Program
DX: E11.65 Type 2 diabetes mellitus with hyperglycemia (principal); E83.42 Hypomagnesemia; R51.9 Headache, unspecified; F17.210 Nicotine dependence, cigarettes, uncomplicated; Z79.84 Long term (current) use of oral hypoglycemic drugs
CPT/HCPCS: 70450; 71045; 80053; 81001; 82803; 83036; 83735; 83880; 85025; 86803; 87086; 87389; 96360; 96361; 99285; J7030